=== PATIENT | male | born 1940 | race Caucasian/White ===

== ENCOUNTER 2023-10-09 11:40 | Inpatient (IN) | payer MEDICARE, SELFPAY ==
[2023-10-09] VITALS (12 sets, daily range): BP systolic 137–156; BP diastolic 52–88; PULSE 2–85; BMI 27.1
[2023-10-09] MEDS: NSS 264 ML IV (09:58)
[2023-10-09] MEDS: LOW STRENGTH ASPIRIN 81 MG PO (09:59)
--- NOTE | 2023-10-09 11:55 | PTCARENOTE ---
Rec'd report from Wagner in the laboratory courier. Rec'd pt into rm s/p cardiac cath AAOx3 w/no c/o CP or SOB. Pt's O2 sats a little low at 89-90% on RA-checked bilaterally. Pt placed on 2L O2 via NC to increase sats. Pt now 96% on 2L. Pt's VS stable. R radial
band in place w/no signs or symptoms of bleeding or hematoma. 10 mLs of air in place in band per metallurgical lab technician report. Pt's at bedside. Call nicholson within reach & plan of care ongoing.
--- NOTE | 2023-10-09 12:05 | ITS.CL.CATH ---
Medicaid Analyst - Catheterization
Cardiac Catheterization
Procedure Report:
LEFT HEART CATHETERIZATION
Date of Procedure: October 09, 2023
Procedures performed:
1: Coronary angiography
2: Left ventricular hemodynamic assessment
Primary Care Physician: Dr. Renita Ward
Primary Spa Director/Finance: Myself
INDICATION: The patient is an 82-year-old man with a past medical history significant for known severe left > right lower extremity peripheral arterial disease, hypertension, COPD, renal insufficiency, chronic anemia on Epogen and recent IV iron,
GERD, and obstructive sleep apnea on CPAP who presents with new exertional angina progressive over the last 6 months. Echocardiography performed on August 02, 2023 shows normal LV systolic function with no significant valvular disease. Nuclear
perfusion imaging performed on October 02 suggested inferior ischemia with exertional chest discomfort at peak exercise which was limited to 4 minutes on a modified Connor protocol held at stage I (only 2.3 METS of exercise). He reports some
exertional tightness walking across the parking lot this morning to the hospital.
ACCESS: The patient was prepped and draped in usual sterile fashion. A 6 Estonian sheath was placed in the right radial artery using the Seldinger over the wire technique.
HEMODYNAMIC FINDINGS (mmHg):
LV(s/d,EDP): 150/12, 20
Ao(s/d,m): 150/56, 95
ANGIOGRAPHIC FINDINGS:
Single-plane Left Ventriculography in TIAN Projection: Not done due to elevated creatinine and recent noninvasive imaging.
Coronary Angiography:
Dominance: Right
Left Main: The left main appears diffusely diseased with a calcific long 70% stenosis. There is pressure dampening with 6 Estonian catheter engagement noted.
Left Anterior Descending: The left anterior descending artery is a medium caliber vessel that gives rise to 2 major diagonal branches. The first diagonal is a small to medium caliber high diagonal branch which bifurcates into 2 small vessels with
normal flow and no clear obstructive disease. The second diagonal branch is a larger caliber vessel that has a smooth 30 to 40% proximal stenosis with normal distal flow. The LAD itself is heavily calcified with mild to moderate luminal
irregularities and at worst a smooth long 40 to 50% mid stenosis after the takeoff of the second diagonal branch. The distal LAD has normal flow.
Left Circumflex: The left circumflex artery is a relatively large nondominant system that gives rise to 2 small and a very large third obtuse marginal branch. There is heavy calcification in the mid circumflex associated with a 50% stenosis
extending into the large third obtuse marginal branch. There is normal flow in all vessels.
Right Coronary: The right coronary artery is a relatively large caliber dominant system that gives rise to a very large caliber posterior descending artery and smaller posterior left ventricular branch system. Again the right coronary artery is
heavily calcified in the AV groove particularly at the acute margin. There is diffuse luminal irregularities throughout the right coronary artery with a long proximal 40% stenosis and a more severe focal mid 60% stenosis before the acute margin.
There is a smooth 50% stenosis in the ostial/proximal posterior descending artery. The distal vessel is widely patent with normal flow. The PLV branch has a smooth ostial 40% stenosis with normal flow in the distal small caliber system.
Fluoroscopy Time (min): 3.4
Radiation Dose (mGy): 314
DAP (Gy.cm2): 21
Closure device: None. A TR band was applied for hemostasis at the right wrist.
Complications: None.
ASSESSMENT:
1: Three-vessel obstructive coronary artery disease with significant left main disease as described above.
CONCLUSIONS and RECOMMENDATIONS:
1: CT surgical evaluation for CABG. He would obviously be high risk with significant renal insufficiency and COPD. Ideally he would get graft to the LAD, OM 3, and posterior descending arteries. Given his symptoms walking into the hospital this
morning I will admit him for an inpatient surgical evaluation. If he is deemed to be too high risk or refuses surgical revascularization I would favor medical therapy for this particular heavily calcified anatomy.
2: Continue medical therapy for hypertension, coronary artery disease, peripheral arterial disease, and hyperlipidemia.
David Magana M.D.
Copy to: Dr. Renita Ward, Dr. Janie Encarnacion, Dr. Chung Allrde
--- NOTE | 2023-10-09 13:01 | CONSULT.CT ---
Addendum entered and electronically signed by Chung Lafleur MD 10/10/23 13:43:
I saw and examined the patient.
The MOTORCYCLE SERVICE TECHNICIAN's note was reviewed and I agree with the note.
Comment:
I met briefly with Mr. Stern at the bedside who was comfortable. I reviewed his films. I plan to sit down with him tomorrow to discuss in detail the conduct of the operation (tentatively for Saturday). He will also need full PFTs given the pulmonary
disease apparent on his CT study. Given his age, ckd, and pulmonary disease he will be at elevated risk with surgery, however, given the appearance of his CAD and LM involvement, I think the risk is reasonable.
Thank you for involving me in the care of this patient. Please feel free to contact me with any questions or concerns.
Chung Lafleur MD, MS
Cardiothoracic Surgeon
[facility]
This dictation was created using the [employer] dictation system. Please excuse any grammatical, typographical, or 'sound alike' errors.
Addendum entered and electronically signed by JAIR Alba 10/09/23 14:52:
Original Note:
Consultation
-
Date/Time Consultation Requested: 10/09/23 1230
Date/Time Consultation Performed: 10/09/23 1315
Requesting Provider: Homar Magana MD
Performing Provider: Nabil Lafleur MD
Reason for Consultation: CABG eval
Patient History
Physicians
Family Physician: Dr. Renita Ward
Outpatient Environmental Program Manager: Dr. David Magana
Inpatient Environmental Program Manager: David Magana/DIVINE
History of Present Illness
82-year-old male with past medical history of PAD, HTN, TECHNICAL DOCUMENT WRITER, renal insufficiency with chronic anema on iron and epogen, GERD, and IRINA on home CPAP presented after having progressive excertional angina in the past several months. The patient states
that it all started around when he was admitted with hypertension. Echocardiography performed on August 02, 2023 shows normal LV systolic function with no significant valvular disease.� Nuclear perfusion imaging performed on October 02
suggested inferior ischemia with exertional chest discomfort at peak exercise which was limited to 4 minutes on a modified Connor protocol held at stage I (only 2.3 METS of exercise).� He reports some exertional tightness walking across the parking
lot this morning to the hospital for his LHC. LHC revealed triple vessel obstructive coronary artery disease with significant LM disease. therefore, CT surgery was consulted for surgical evaluation.
Past Medical History
Past Medical History: Angina, CAD, COPD, HTN, Hypercholesterolemia, IRINA and Renal Insufficiency
Past Surgical History
Past Surgical History: Cholecystectomy and Other (Femur repair 50 years ago)
Dental History
Full top dentures and partial bottom dentures
Family History
Mother: at Age and Cause of (lung cancer)
Father: at Age and Cause of (Aortic valve insuffiency)
Family Medical History: Cancer
Social History
Alcohol: Occasional
Drug: None
Tobacco: Former Smoker (Quit 20 years ago)
Personal:
Living: With Spouse
Employment: Retired ('tree surgeon')
Allergies
Allergy/AdvReac Type Severity Reaction Status Date / Time
No Known Allergies Allergy Unverified 10/09/23 10:02
Home Medications
Medication Instructions Recorded Confirmed Type
amlodipine 2.5 mg tablet 5 mg PO DAILY 10/05/19 10/09/23 History
ascorbic acid (vitamin C) 1,000 mg 1,000 mg PO DAILY 10/05/19 10/09/23 History
tablet (Vitamin C)
aspirin 81 mg tablet,delayed 81 mg PO HS 10/05/19 10/09/23 History
release
atorvastatin 40 mg tablet (Lipitor) 40 mg PO HS 10/05/19 10/09/23 History
cholecalciferol (vitamin D3) 25 50 mcg PO DAILY 10/05/19 10/09/23 History
mcg (1,000 unit) capsule (Vitamin
D3)
cyanocobalamin (vitamin B-12) 1,000 mcg PO DAILY 10/05/19 10/09/23 History
1,000 mcg tablet
finasteride 5 mg tablet 5 mg PO HS 10/05/19 10/09/23 History
fish oil-dha-epa 1,200 mg-144 1 ea PO DAILY 10/05/19 10/09/23 History
mg-216 mg capsule
terazosin 10 mg capsule (Hytrin) 10 mg PO HS 10/05/19 10/09/23 History
cannabidiol 100 mg/mL oral 1 mg inhalation QPM 10/07/19 10/09/23 History
solution (Epidiolex)
albuterol sulfate 90 mcg/actuation 1 puff inhalation QID PRN 10/09/23 10/09/23 History
aerosol inhaler wheezing/dyspnea
benazepril 20 mg tablet 20 mg PO DAILY 10/09/23 10/09/23 History
epoetin naila 2,000 unit/mL 2,000 unit SC Q2W 10/09/23 10/09/23 History
injection solution (Procrit)
furosemide 40 mg tablet 40 mg PO DAILY 10/09/23 10/09/23 History
gabapentin 300 mg tablet 300 mg PO HS 10/09/23 10/09/23 History
hydralazine 50 mg tablet 50 mg PO BID 10/09/23 10/09/23 History
multivitamin 1 tab PO DAILY 10/09/23 10/09/23 History
omeprazole 20 mg tablet,delayed 20 mg PO BID@0800,1700 10/09/23 10/09/23 History
release
umeclidinium 62.5 mcg-vilanterol 1 inh inhalation DAILY 10/09/23 10/09/23 History
25 mcg/actuation powdr for
inhalation (Anoro Ellipta)
Review of Systems
-
History Source: Patient
General: Reports Weight Gain
HEENT: Reports No Symptoms
Respiratory: Reports No Symptoms
Cardiac: Reports Chest Pain, CAD and Edema
Abdomen/GI: Reports No Symptoms
: Reports Frequency (09/27 lasix)
Musculoskeletal: Reports No Symptoms
Skin: Reports No Symptoms
Neurological: Reports No Symptoms
Vascular: Reports No Symptoms
Physical Exam
Vital Signs
Temp 97.7 F 10/09/23 11:44
Temp route: Oral 10/09/23 09:39
Pulse 67 10/09/23 11:45
Resp Rate 16 10/09/23 11:44
Blood pressure 137/52 10/09/23 11:45
Blood pressure extremity used: Left upper arm 10/09/23 11:44
Position: Lying 10/09/23 11:44
MAP (cuff-Dexter Monitor) 79 10/09/23 11:45
SaO2 95 10/09/23 11:44
Nasal Cannula flow liters per minute 2 10/09/23 11:44
Oxygen Mode of Delivery Room air 10/09/23 09:39
Can the patient verbally communicate their pain? Yes 10/09/23 09:39
Actual Weight 88 kg 10/09/23 06:50
Body Mass Index (BMI) 27.1 10/09/23 06:50
Exam
General: Well Developed and Well Nourished
HEENT: Normocephalic
Respiratory: Clear
Cardiac: S1/S2 and Regular Rhythm
GI: Soft
Rectal: Deferred by Provider
Skin: Warm and Dry
Neuro: AO x 3
Extremities: Lower Level Edema (Trace) and Pulses (+1 palp)
Lymph: No Lymphadenopathy
Psych: Calm
Assessment / Plan
-
82 y/o male with past medical history listed above presented with excertionall CP for a LHC. LHC revealed MVD and CT surgery was consulted for surgical eval.
#CAD
-Patient's case will be discussed with attending physician and further details regarding surgical timing intervention will be determined after attending physicians full evaluation.
-Routine preoperative cardiothoracic surgery orders will be initiated.
-STS risk stratification score will be calculated after preoperative testing is complete
-Continue nitroglycerin and heparin gtt per cardiology
#COPD
-PFTs ordered
- reports not wearing home O2
#Renal insufficiency
- BMP pending
- reports not following an outpatient manager review
- Will consult nephro
#hx of anemia
-continue epogen
- trend CBC
- will likely start IV iron pre-op
--- NOTE | 2023-10-09 14:05 | CM ---
CM following for DC planning needs.
Met w/ patient's sig. other at bedside to complete initial assessment. Pt. was not present in the room at this time.
Pt. resides w/ sig. other in a private, multi level home. Main bedroom and bath located on second level. Pt. has a CPAP at home and uses this regularly. Functionally, patient is indep. at baseline w/ ADLs, mobility without the use of any assisted
device.
Pt. has Rx plan and uses [facility] for prescription needs.
Sig. other states that she is awaiting Nursery Technician + Surgeon for plan of care.
CM to follow for DC planning needs.
--- NOTE | 2023-10-09 15:56 | W.CON.NEPH ---
Consultation
-
Date/Time Consultation Requested: October 09, 2023 3:00 PM
Date/Time Consultation Performed: October 09, 2023 3:00
Requesting Provider: Ciarra
Performing Provider: Blaire
Reason for Consultation: CKD 4
Medical History
-
Chief Complaint: Chronic kidney disease stage IV
History of Present Illness:
The patient is an 82-year-old male with a past medical history of longstanding hypertension currently suboptimally controlled on the combination of amlodipine benazepril, hydralazine, terazosin and Lasix. The patient was previously seen by
nephrology in June 2023 when he was admitted to [facility] with uncontrolled hypertension. A negative secondary hypertensive workup was initiated which included negative renal artery duplex. I did review an ultrasound during that
hospitalization from [place] which showed normal-sized kidneys without evidence of increased echogenicity. His urinalysis was noted to have 1+ proteinuria. A few weeks ago he was initiated on Lasix due to sudden onset of increasing lower
extremity edema. I reviewed his past medical history which included a creatinine level of 1.7 from March 2023. In June 2023 the creatinine was 2.2 and as of September 17, 2023 his creatinine was 1.9. Extrapolating back further from February 2019
his creatinine was 1.5. He was seen by his assistant reading teacher in the [place] area for follow-up when he was noted to have chest discomfort for which she was referred back to cardiology. Eventually he underwent cardiac stress test and then was referred
to [facility] today for elective cardiac catheterization. He still continues to have ongoing chest discomfort with exertion. His heart cath revealed an LVEDP of 20 with associated triple-vessel disease and he is now being evaluated by
cardiothoracic surgery for CABG procedure. I was consulted for his CKD stage IV
Past Medical History
CKD stage IV (2.4 10/02/23)
BPH
Peripheral arterial disease with symptomatic claudication
Past Medical History: CAD, COPD, HTN and Hypercholesterolemia
Past Surgical History: Cholecystectomy
Social History
Ex tobacco quit 30 years ago
No alcohol abuse
Tobacco: Former Smoker
Drug: None
Personal:
Living: With Family
Family History
No CKD
Allergies / Home Medications
Allergy/AdvReac Type Severity Reaction Status Date / Time
No Known Allergies Allergy Unverified 10/09/23 10:02
Medication Instructions Recorded Confirmed Type
amlodipine 2.5 mg tablet 5 mg PO DAILY 10/05/19 10/09/23 History
ascorbic acid (vitamin C) 1,000 mg 1,000 mg PO DAILY 10/05/19 10/09/23 History
tablet (Vitamin C)
aspirin 81 mg tablet,delayed 81 mg PO HS 10/05/19 10/09/23 History
release
atorvastatin 40 mg tablet (Lipitor) 40 mg PO HS 10/05/19 10/09/23 History
cholecalciferol (vitamin D3) 25 50 mcg PO DAILY 10/05/19 10/09/23 History
mcg (1,000 unit) capsule (Vitamin
D3)
cyanocobalamin (vitamin B-12) 1,000 mcg PO DAILY 10/05/19 10/09/23 History
1,000 mcg tablet
finasteride 5 mg tablet 5 mg PO HS 10/05/19 10/09/23 History
fish oil-dha-epa 1,200 mg-144 1 ea PO DAILY 10/05/19 10/09/23 History
mg-216 mg capsule
terazosin 10 mg capsule (Hytrin) 10 mg PO HS 10/05/19 10/09/23 History
cannabidiol 100 mg/mL oral 1 mg inhalation QPM 10/07/19 10/09/23 History
solution (Epidiolex)
albuterol sulfate 90 mcg/actuation 1 puff inhalation QID PRN 10/09/23 10/09/23 History
aerosol inhaler wheezing/dyspnea
benazepril 20 mg tablet 20 mg PO DAILY 10/09/23 10/09/23 History
epoetin naila 2,000 unit/mL 2,000 unit SC Q2W 10/09/23 10/09/23 History
injection solution (Procrit)
furosemide 40 mg tablet 40 mg PO DAILY 10/09/23 10/09/23 History
gabapentin 300 mg tablet 300 mg PO HS 10/09/23 10/09/23 History
hydralazine 50 mg tablet 50 mg PO BID 10/09/23 10/09/23 History
multivitamin 1 tab PO DAILY 10/09/23 10/09/23 History
omeprazole 20 mg tablet,delayed 20 mg PO BID@0800,1700 10/09/23 10/09/23 History
release
umeclidinium 62.5 mcg-vilanterol 1 inh inhalation DAILY 10/09/23 10/09/23 History
25 mcg/actuation powdr for
inhalation (Anoro Ellipta)
Review of Systems
-
History Source: Patient
All other systems: Negative unless noted
Constitutional: No Symptoms
EENT: No Symptoms
Respiratory: No Symptoms
Cardiac: Chest Pain (Exacerbated with exertion, noted claudication discomfort in legs with exertion)
Abdomen/GI: No Symptoms
: No Symptoms
Musculoskeletal: No Symptoms
Skin: No Symptoms
Neurological: No Symptoms
Endocrine: No Symptoms
Hematologic/Lymphatic: No Symptoms
Physical Exam
Vital Signs
Vital Signs
Temp Pulse Resp BP Pulse Ox
97.7 F 75 16 148/57 95
10/09/23 11:44 10/09/23 15:30 10/09/23 11:44 10/09/23 13:00 10/09/23 11:44
Physical Exam
General: AOx3, No Distress and Nontoxic
HEENT: PERRL, EOMI, Anicteric, Conjunctivae Clear, Ear/Nose Intact, Hearing Normal, Oropharynx Clear/Moist, Neck Supple, Trachea Midline and No Thyromegaly
Respiratory: Clear, Normal Excursion and Other (Decreased breath sounds to the bases bilateral)
Cardiac: S1/S2, Murmur (3 out of 6 systolic ejection murmur which radiates to the carotids), No Edema and Pulses (+1 radial pulses dorsalis pedis pulses poorly)
Breast: Deferred by me
Abdomen: Soft, Nontender, Nondistended, Normal Bowel Sounds and No Hepatosplenomegaly
Rectal: Deferred by Provider
Genito-urinary: No Costovertebral Tender
Musculoskeletal: No Clubbing, No Cyanosis and No Edema
Skin: No Rash
Neuro: Nonfocal/Grossly Intact
Hematologic/Lymphatic: No Cervical Lymphadenopathy, No Submandibular Lymphadenopathy and No Supraclavicular Lymphadenopathy
Psych: Mood/afflect pleasant, Insight/judgement good and Appropriate
Assessment/Plan
-
Impression:
Status postcardiac catheterization 10/09 with noted 3V disease
Chronic kidney disease stage IV (2.4)
Longstanding uncontrolled hypertension with negative secondary hypertensive work
Anemia on chronic BOBO
Peripheral arterial disease with active claudication
COPD
Plan:
CKD stage IV
-I suspect the patient's etiology of his kidney disease is related to ischemic nephropathy and/or hypertensive nephrosclerosis as per review of his outpatient nephrology workup
-Most recent urinalysis noted only 1+ proteinuria
-I will quantitate his underlying proteinuria with urine protein to urine creatinine ratio
-I suspect the recent rise in his creatinine was due to the administration of Lasix which was enacted as an outpatient prior to this hospitalization
-His kidney ultrasound and renal artery duplex were all within normal limits
-Benazepril and Lasix should be held following his catheterization today
-I am not sure if he was provided with contrast prophylaxis prior to this cardiac catheterization this afternoon
-Henceforth the patient may be at increased risk for contrast nephropathy
-I explained to the patient that he is at increased risk for continued renal decline following his cardiac catheterization and would be at an increased risk for renal failure (possibly HD dependent) following a CABG procedure given his
comorbidities ,age,andCKD stagen 4
Data Reviewed
-
Radiology: Image Personally Visualized and interpreted
Medical Tests (Nuc Med, Echo etc): Report Reviewed by me (I reviewed a renal artery duplex from 10/04/2022 which was without stenosis as well as a normal kidney ultrasound from same day) and Other (I reviewed the cardiac catheterization today which
noted three-vessel disease and an LVEDP of 20)
Labs: Labs Reviewed by me
Old Records: Reviewed (I reviewed old records from 10/02/2023 which noted a creatinine of 2.4, reviewed and negative renal artery duplex report from 10/04/2023 as well as a normal kidney ultrasound report from 10/04/2023)
[2023-10-09 16:21] LABS: Hematocrit 28.3 % (39.0-52.0); Hemoglobin 9.7 g/dL (13.0-18.0); Mean Corp Hgb Conc. 34.3 g/dL (33.0-37.0); Mean Corpuscular Hgb 29.1 pg (27.0-31.0); Mean Platelet Volume 10.8 fL (7.4-10.4); Platelet Count 176 10^3/uL (130-400); Red Blood Cell Count 3.33 10^6/uL (4.70-6.10); Red Cell Dist. Width 18.6 % (11.5-14.5); White Blood Cell Count 7.1 10^3/uL (4.8-10.8)
[2023-10-09 16:43] LABS: ALT (SGPT) 14 U/L (0-50); AST (SGOT) 18 U/L (17-59); Albumin 3.8 g/dl (3.5-5.0); Alkaline Phosphatase 68 U/L (38-126); Blood Urea Nitrogen 50 mg/dl (9-20); Calcium 9.4 mg/dl (8.4-10.2); Carbon Dioxide 25 mmol/L (22-30); Chloride 101 mmol/L (98-107); Direct Bilirubin 0.5 mg/dl (0.0-0.4); Estimated Creatinine Clearance 26 ml/min; Glucose 116 mg/dl (70-99); Potassium 4.1 mmol/L (3.5-5.1); Sodium 137 mmol/L (135-145); Total Bilirubin 0.7 mg/dl (0.2-1.3); Total Protein 6.5 g/dl (6.3-8.2); eGFR 27.66
[2023-10-09 17:31] LABS: APTT 31.2 Sec (23.4-35.0)
[2023-10-09] MEDS: PROTONIX 40 MG PO (18:32)
[2023-10-09] MEDS: LOVENOX 30 MG SC (18:32)
[2023-10-09] MEDS: HEPARIN 25000 UNITS/250 ML IV (20:00)
[2023-10-09] MEDS: APRESOLINE 50 MG PO (20:00)
[2023-10-09] MEDS: HYTRIN 10 MG PO (22:17)
[2023-10-09] MEDS: NEURONTIN 300 MG PO (22:17)
[2023-10-09] MEDS: PROSCAR 5 MG PO (22:18)
[2023-10-09] MEDS: ASPIR LOW (ENTERIC COATED) 81 MG PO (22:18)
[2023-10-09] MEDS: LIPITOR 40 MG PO (22:18)
[2023-10-10] VITALS (7 sets, daily range): BP systolic 131–174; BP diastolic 54–76; PULSE 2–89
--- NOTE | 2023-10-10 00:06 | PTCARENOTE ---
Received pt at handoff. AOX3. Assessment noted as documented. Heparin gtt infusing at 10 ml/hr per order. R radial dressing c/d/i. No c/o pain/discomfort. Pt able to ambulate around room w/o CP. Pt currently in bed; call bharat w/in reach.
[2023-10-10 02:46] LABS: Hemoglobin 8.9 g/dL (13.0-18.0); Mean Corp Hgb Conc. 34.2 g/dL (33.0-37.0); Mean Corpuscular Hgb 29.2 pg (27.0-31.0); Mean Corpuscular Volume 85.2 fL (80.0-94.0); Mean Platelet Volume 10.7 fL (7.4-10.4); Platelet Count 158 10^3/uL (130-400); Red Blood Cell Count 3.05 10^6/uL (4.70-6.10); Red Cell Dist. Width 18.5 % (11.5-14.5)
[2023-10-10 02:58] LABS: APTT 55.9 Sec (23.4-35.0)
[2023-10-10 03:23] LABS: Blood Urea Nitrogen 45 mg/dl (9-20); Calcium 8.8 mg/dl (8.4-10.2); Carbon Dioxide 24 mmol/L (22-30); Chloride 107 mmol/L (98-107); Estimated Creatinine Clearance 28 ml/min; Glucose 93 mg/dl (70-99); HDL Cholesterol 74 mg/dl; LDL Cholesterol, Calculated 55 mg/dl; Potassium 3.5 mmol/L (3.5-5.1); Sodium 136 mmol/L (135-145); Total Cholesterol 136 mg/dl (50-199); Triglyceride 38 mg/dl (10-149); Very Low Density Lipoprotein 7 mg/dl (0-30); eGFR 29.17
[2023-10-10 05:10] LABS: B.E. 1.5 mmol/L; HCO3 25.9 mmol/L (21-28); PCO2 39 mmHg (35-48); PO2 88 mmHg (83-108); pH 7.43 (7.35-7.45)
--- NOTE | 2023-10-10 07:35 | W.PN.CARDCBS ---
Addendum entered and electronically signed by Huma Lynn MD 10/10/23 12:25:
I saw and examined the patient.
The Bioprocess Development Engineer's note was reviewed and I agree with the note.
Comment: He is stable from a cardiovascular point of view. Awaiting CT surgery opinion and preoperative testing.
Carotid disease noted.
Discussed with patient. Exam stable.
Continue current treatment.
Follow telemetry telemetry stable. Some PVCs noted.
Original Note:
Today's Communication / Plan
-
CT surgery evaluation ongoing
Continue heparin drip
Impression / Plan
-
PCP: Dr. Renita Ward
[employer]: Dr. Magana ([facility] Cardiology)
Impression:
CAD
3-vessel CAD with significant LM disease by cath 10/09/2023
PAD
HTN
HLD
CKD 4
COPD
Chronic ALEC
GERD
IRINA on CPAP
Nuclear stress test 10/02/2023: moderate to large size and moderate in severity perfusion defect involving the basal to apical inferior wall noted on rest imaging. This improves substantially on stress images. Positive stress ECG criteria at 4 minutes
of exercise, achieving 2.3 METs of activity .
[facility] 10/09/2023: LM diffusely diseased with long 70% stenosis. LAD: Heavily calcified with mild to moderate luminal irregularities and at worst a smooth long 40 to 50% mid stenosis. LCx: Heavy calcification in the mid circumflex associated with a
50% stenosis extending into the large third obtuse marginal branch. RCA: Diffuse luminal irregularities throughout the RCA with a long proximal 40% stenosis and a more severe focal mid 60% stenosis before the acute margin. Smooth 50% stenosis in
the ostial/proximal PDA.
Echo 08/02/2023: EF 55-60%, moderate cLVH, no significant valvular disease
Plan:
-Presented for [facility] with Dr. Magana after experiencing exertional chest discomfort with abnormal stress test as noted.
-[facility] found multivessel CAD and patient is currently undergoing CT surgery evaluation for possible CABG.
-Carotid US noted >70% stenosis of the R ICA.
-CKD 4 noted, being followed by nephrology. Creat 2.2 on 10/10.
-No chest pain or SOB. Feeling well this AM.
-Continue heparin drip. Continue aspirin, lipitor
-BP overall stable, continue hydralazine and amlodipine.
-Consider cautious addition of BB with low dose toprol.
Progress Note - [employer]
Subjective
Date of Service: October 10, 2023
No chest pain or SOB. Feeling well today.
Objective
Labs:
10/10/23 02:39
10/10/23 02:39
Labs
Hgb 8.9 g/dL (13.0-18.0) L 10/10/23 02:39
Hct 26.0 % (39.0-52.0) L 10/10/23 02:39
Plt Count 158 10^3/uL (130-400) 10/10/23 02:39
PT 15.0 Sec (11.4-14.6) H 10/09/23 16:14
INR 1.20 10/09/23 16:14
APTT 55.9 Sec (23.4-35.0) H 10/10/23 02:39
Sodium 136 mmol/L (135-145) 10/10/23 02:39
Potassium 3.5 mmol/L (3.5-5.1) 10/10/23 02:39
BUN 45 mg/dl (9-20) H 10/10/23 02:39
Creatinine 2.2 mg/dL (0.7-1.3) H 10/10/23 02:39
Glucose 93 mg/dl (70-99) 10/10/23 02:39
Vital Signs and I&O:
Vital Signs
Temp Pulse Resp BP Pulse Ox
98.8 F 63 20 142/54 96
10/10/23 07:20 10/10/23 02:41 10/10/23 07:20 10/10/23 02:41 10/10/23 07:20
Vital Signs
Temp Pulse Resp BP Pulse Ox
98.8 F 63 20 142/54 96
10/10/23 07:20 10/10/23 02:41 10/10/23 07:20 10/10/23 02:41 10/10/23 07:20
Intake & Output
10/08/23 10/09/23 10/10/23 10/11/23
06:59 06:59 06:59 06:59
Intake Total 2031
Balance 2031
Physical Exam
Physical Exam
GEN: No distress, awake, alert, oriented x3
HEENT: supple, anicteric, mmm
LUNGS: CTA b/l, no wheezes/rales
CV: Reg, S1/S2, no murmur
ABD: soft, BS+, NT/ND
EXT: No clubbing, cyanosis, or edema
NEURO: Gross non-focal
SKIN: Warm, dry, no rash
--- NOTE | 2023-10-10 08:09 | W.PN.UPDATE ---
Update Note
Progress Note Update
STS Risk Calculation:
Procedure Type:�Isolated CABG
PERIOPERATIVE OUTCOME ESTIMATE %
Operative Mortality 5.33%
Morbidity & Mortality 17.5%
Stroke 1.33%
Renal Failure 14.3%
Reoperation 3.78%
Prolonged Ventilation 7.09%
Deep Sternal Wound Infection 0.167%
Long Hospital Stay (>14 days) 11.2%
Short Hospital Stay (<6 days)* 17.5%
[2023-10-10 08:12] LABS: Protein/creatinine Ratio 0.8; Urine Protein 73 mg/dl
[2023-10-10] MEDS: APRESOLINE 50 MG PO ×2 (08:38→20:25)
[2023-10-10] MEDS: PROTONIX 40 MG PO ×2 (08:38→16:29)
[2023-10-10] MEDS: NORVASC 5 MG PO (08:38)
[2023-10-10] MEDS: VITAMIN C 500 MG PO (08:38)
[2023-10-10 09:11] LABS: Glycohemoglobin (HgbA1c) 5.7 % (4.0-5.6)
[2023-10-10 10:17] LABS: APTT 46.4 Sec (23.4-35.0)
--- NOTE | 2023-10-10 10:39 | PTCARENOTE ---
Assumed care of pt from prev nsg shift this am; Pt AAOx3 w/no c/o CP or SOB. Pt's VS stable. NSR on telemetry monitoring. Pt w/Heparin IV infusing at ordered rate through patent IV line. Discussed plan of care w/pt w/upcoming CT surgery. Gave pt CT
surgery book & answered questions RE: plan from the nursing aspect. Pt given pen & paper to write down any questions for the physicians as they come up. Pt verbalized understanding of current plan. Pt w/call nicholson within reach & no addtl needs at
this time.
[2023-10-10] MEDS: SPIRIVA RESPIMAT 2.5 MCG INH (11:17)
[2023-10-10] MEDS: STRIVERDI RESPIMAT INH (11:17)
[2023-10-10] MEDS: TOPROL XL 25 MG PO (11:49)
--- NOTE | 2023-10-10 12:30 | W.PN.NEPH.PH ---
Today's Communication / Plan
-
observe
follow up bmp tomorrow
holding tyler and lasix for now
Assessment/Plan
-
Impression:
Status postcardiac catheterization 10/09 with noted 3V disease
Chronic kidney disease stage IV (2.4)
Longstanding uncontrolled hypertension with negative secondary hypertensive work
Anemia on chronic BOBO
Peripheral arterial disease with active claudication
COPD
Plan:
CKD stage IV
-Creatinine stable at 2.2 24 hours post cath
-I suspect the patient's etiology of his kidney disease is related to ischemic nephropathy and/or hypertensive nephrosclerosis as per review of his outpatient nephrology workup
-Most recent urinalysis noted only 1+ proteinuria ~800 mg
-
-I suspect the recent rise in his creatinine was due to the administration of Lasix which was enacted as an outpatient prior to this hospitalization
-His kidney ultrasound and renal artery duplex were all within normal limits
-Benazepril and Lasix should be held for now
-I explained to the patient that he is at increased risk for continued renal decline following his cardiac catheterization and would be at an increased risk for renal failure (possibly HD dependent) following a CABG procedure given his
comorbidities ,age,and CKD stage 4
-
-
Date of Service: October 10, 2023
CC / HPI / ROS
-
Chief Complaint:
ckd
History of Present Illness:
Creatinine stable at 2.2 post catheterization which was performed 10/09/2023
Blood pressure stable on current antihypertensive
Review of Systems:
non olguric
no fevers
no sob
Labs
-
Labs:
WBC 7.0 10^3/uL (4.8-10.8) 10/10/23 02:39
RBC 3.05 10^6/uL (4.70-6.10) L 10/10/23 02:39
Hgb 8.9 g/dL (13.0-18.0) L 10/10/23 02:39
Hct 26.0 % (39.0-52.0) L 10/10/23 02:39
Plt Count 158 10^3/uL (130-400) 10/10/23 02:39
Sodium 136 mmol/L (135-145) 10/10/23 02:39
Potassium 3.5 mmol/L (3.5-5.1) 10/10/23 02:39
Chloride 107 mmol/L (98-107) 10/10/23 02:39
Carbon Dioxide 24 mmol/L (22-30) 10/10/23 02:39
BUN 45 mg/dl (9-20) H 10/10/23 02:39
Creatinine 2.2 mg/dL (0.7-1.3) H 10/10/23 02:39
eGFR 29.17 10/10/23 02:39
Glucose 93 mg/dl (70-99) 10/10/23 02:39
Calcium 8.8 mg/dl (8.4-10.2) 10/10/23 02:39
Albumin 3.8 g/dl (3.5-5.0) 10/09/23 16:14
Physical Exam
-
Vital Signs:
Vital Signs
Temp Pulse Resp BP Pulse Ox
98.5 F 65 20 140/56 93
10/10/23 11:48 10/10/23 12:01 10/10/23 11:48 10/10/23 11:49 10/10/23 11:48
Cardiovascular:: Regular rate and rhythm
Respiratory:: Bilateral: CTA
Lung Excursion:: Normal
Abdomen:: Nontender and Soft
Bowel Sounds:: Normal
Extremity Edema:: None: Bilateral:
Hanna Catheter: No
[2023-10-10] MEDS: HEPARIN 25000 UNITS/250 ML IV (14:08)
--- NOTE | 2023-10-10 14:57 | CM ---
CM following for DC planning needs.
Met w/ patient at bedside. Pt. feels well, is expecting CT Surgery next wk.
Discussed w/ patient that I will plan to return once sig. other is at bedside to complete pre-op teaching.
Will cont. to follow.
[2023-10-10] MEDS: FERRLECIT 110 MG IV (15:23)
[2023-10-10] MEDS: FLUSH (NSS) 2 FLUSH IV (15:23)
[2023-10-10 17:06] LABS: APTT 103.2 Sec (23.4-35.0)
[2023-10-10] MEDS: PROSCAR 5 MG PO (22:57)
[2023-10-10] MEDS: ASPIR LOW (ENTERIC COATED) 81 MG PO (22:57)
[2023-10-10] MEDS: LIPITOR 40 MG PO (22:57)
[2023-10-10] MEDS: HYTRIN 10 MG PO (22:58)
[2023-10-10] MEDS: NEURONTIN 300 MG PO (22:58)
--- NOTE | 2023-10-10 23:40 | PTCARENOTE ---
Received pt at handoff. AOX3. Tele- SR 70-80s. Assessment noted as documented. No c/o pain/discomfort. Heparin gtt infusing at 1400 units/hr. Currently in bed; call nicholson w/in reach.
[2023-10-10 23:53] LABS: APTT 94.8 Sec (23.4-35.0)
[2023-10-11] VITALS (7 sets, daily range): BP systolic 122–150; BP diastolic 51–70; BMI 26.4
[2023-10-11 03:54] LABS: Hematocrit 26.6 % (39.0-52.0); Hemoglobin 9.1 g/dL (13.0-18.0); Mean Corp Hgb Conc. 34.2 g/dL (33.0-37.0); Mean Corpuscular Hgb 29.5 pg (27.0-31.0); Mean Corpuscular Volume 86.4 fL (80.0-94.0); Mean Platelet Volume 11.7 fL (7.4-10.4); Platelet Count 161 10^3/uL (130-400); Red Blood Cell Count 3.08 10^6/uL (4.70-6.10); Red Cell Dist. Width 18.6 % (11.5-14.5); White Blood Cell Count 5.7 10^3/uL (4.8-10.8)
[2023-10-11 04:26] LABS: Blood Urea Nitrogen 46 mg/dl (9-20); Calcium 9.1 mg/dl (8.4-10.2); Carbon Dioxide 25 mmol/L (22-30); Chloride 103 mmol/L (98-107); Estimated Creatinine Clearance 28 ml/min; Glucose 91 mg/dl (70-99); Potassium 3.8 mmol/L (3.5-5.1); Sodium 136 mmol/L (135-145); eGFR 29.17
[2023-10-11] MEDS: HEPARIN 25000 UNITS/250 ML IV (07:56)
[2023-10-11] MEDS: NORVASC 5 MG PO (08:01)
[2023-10-11] MEDS: PROTONIX 40 MG PO ×2 (08:01→18:01)
[2023-10-11] MEDS: TOPROL XL 25 MG PO (08:01)
[2023-10-11] MEDS: APRESOLINE 50 MG PO ×2 (08:01→19:42)
[2023-10-11] MEDS: VITAMIN C 500 MG PO (08:01)
[2023-10-11] MEDS: SPIRIVA RESPIMAT 2.5 MCG 2 PUFF INH (08:41)
[2023-10-11] MEDS: STRIVERDI RESPIMAT 2 PUFF INH (08:41)
--- NOTE | 2023-10-11 09:12 | W.PN.CARDCBS ---
Addendum entered and electronically signed by Sudheer Abdul MD 10/11/23 12:10:
He offers no complaints
allergies: None
Outpatient meds albuterol, amlodipine, aspirin 81 mg a day, atorvastatin 40 mg a day, benazepril 20 mg a day, EPO, Proscar, furosemide 40 mg daily, hydralazine 50 mg twice daily, Mcgarry and 10 mg at bedtime, and neuro Ellipta
Current medications: Similar to outpatient, plus heparin, and metoprolol ER 25 mg daily
PMH/PSH/SH/FH: Reviewed
Review of systems: Negative except as above
150/70, pulse 60 resp rate 16
Head neck exam unremarkable lungs are clear, regular rate and rhythm without obvious murmurs, JVD okay, no carotid bruits, abdomen benign, extremities with trace edema distal pulses intact, neuro nonfocal
Hemoglobin 9.1, platelets 161, BUN and creatinine 46 and 2.2, creatinine was 2.3 on admission
Electrocardiogram on the 14 sinus rhythm, LVH with QRS widening, anterior MD, PVCs, left atrial enlargement
Impression:
CAD
3-vessel CAD with significant LM disease by cath 10/09/2023AD
HTN
HLD
CKD 4
COPD
Chronic ALEC
GERD
IRINA on CPAP
Plan:
He appears stable despite left main stenosis. Continue heparin.
Creatinine is stable.
He has no cardiac symptoms at present.
Tentative CABG 10/14/2023
Original Note:
Today's Communication / Plan
-
Continue CT surgery eval
Possible CABG on 10/14.
Continue heparin drip
Follow BP on current meds and uptitrate as needed
Impression / Plan
-
PCP: Dr. Renita Ward
Instrument Tester: Dr. Magana ([facility] Cardiology)
Impression:
CAD
3-vessel CAD with significant LM disease by cath 10/09/2023
PAD
HTN
HLD
CKD 4
COPD
Chronic ALEC
GERD
IRINA on CPAP
Nuclear stress test 10/02/2023: moderate to large size and moderate in severity perfusion defect involving the basal to apical inferior wall noted on rest imaging. This improves substantially on stress images. Positive stress ECG criteria at 4 minutes
of exercise, achieving 2.3 METs of activity .
[facility] 10/09/2023: LM diffusely diseased with long 70% stenosis. LAD: Heavily calcified with mild to moderate luminal irregularities and at worst a smooth long 40 to 50% mid stenosis. LCx: Heavy calcification in the mid circumflex associated with a
50% stenosis extending into the large third obtuse marginal branch. RCA: Diffuse luminal irregularities throughout the RCA with a long proximal 40% stenosis and a more severe focal mid 60% stenosis before the acute margin. Smooth 50% stenosis in
the ostial/proximal PDA.
Echo 08/02/2023: EF 55-60%, moderate cLVH, no significant valvular disease
Plan:
-Presented for [facility] with Dr. Magana after experiencing exertional chest discomfort with abnormal stress test as noted.
-[facility] found multivessel CAD and patient is currently undergoing CT surgery evaluation for possible CABG. Tentatively planned for 10/14/23.
-Carotid US noted >70% stenosis of the R ICA.
-CKD 4 noted, being followed by nephrology. Creat overall stable at 2.2 10/11. Lasix and benazepril on hold.
-Continues to be pain free. Continue heparin drip.
-Continue hydralazine and amlodipine. Low dose Toprol added 10/10.
-Follow BP and may consider increasing hydralazine or toprol versus adding back benazperil/lasix eventually.
-Continue aspirin.
-Continue lipitor. LDL 55.
-Hgb A1c 5.7%
Progress Note - Instrument Tester
Subjective
Date of Service: October 11, 2023
Feeling well without chest pain or SOB.
Objective
Labs:
10/11/23 03:35
10/11/23 03:35
Labs
Hgb 9.1 g/dL (13.0-18.0) L 10/11/23 03:35
Hct 26.6 % (39.0-52.0) L 10/11/23 03:35
Plt Count 161 10^3/uL (130-400) 10/11/23 03:35
PT 15.0 Sec (11.4-14.6) H 10/09/23 16:14
INR 1.20 10/09/23 16:14
APTT 94.8 Sec (23.4-35.0) H 10/10/23 23:28
Sodium 136 mmol/L (135-145) 10/11/23 03:35
Potassium 3.8 mmol/L (3.5-5.1) 10/11/23 03:35
BUN 46 mg/dl (9-20) H 10/11/23 03:35
Creatinine 2.2 mg/dL (0.7-1.3) H 10/11/23 03:35
Glucose 91 mg/dl (70-99) 10/11/23 03:35
Vital Signs and I&O:
Vital Signs
Temp Pulse Resp BP Pulse Ox
98.2 F 71 16 150/70 96
10/11/23 07:47 10/11/23 08:01 10/11/23 07:47 10/11/23 08:01 10/11/23 07:47
Vital Signs
Temp Pulse Resp BP Pulse Ox
98.2 F 71 16 150/70 96
10/11/23 07:47 10/11/23 08:01 10/11/23 07:47 10/11/23 08:01 10/11/23 07:47
Intake & Output
10/09/23 10/10/23 10/11/23 10/12/23
06:59 06:59 06:59 06:59
Intake Total 2031 960 / 960
Balance 2031 960 / 96
Physical Exam
Physical Exam
GEN: No distress, awake, alert, oriented x3
HEENT: supple, anicteric, mmm
LUNGS: CTA b/l, no wheezes/rales
CV: Reg, S1/S2, no murmur
ABD: soft, BS+, NT/ND
EXT: No clubbing, cyanosis, or edema b/l
NEURO: Gross non-focal
SKIN: Warm, dry, no rash
--- NOTE | 2023-10-11 13:00 | CM ---
CM following for DC planning needs.
Met w/ patient, sig. other at bedside to complete pre-op teaching.
Reviewed pre and post operative routines.
Discussed post op restrictions to include lifting, driving, flying, and sternal precautions.
Reviewed post op MD appointments, Cardiac Rehab, and visit from CT Transitional Care RN.
Plan for CT SUrgery 10/14.
Anticipated DC plan is for home w/ CT Transitional Care RN
Will cont. to follow for DC planning needs.
[2023-10-11] MEDS: FERRLECIT 110 MG IV (13:56)
--- NOTE | 2023-10-11 14:27 | W.PN.UPDATE ---
Update Note
Progress Note Update
Discussed risks and benefits with Mr Stern and the his spouse. We reviewed the conduct of the surgery and the risks associated with surgery given his current comorbids. Mr Stern has opted to move froward which is reasonable. I will sit down with
them again this weekend. Consent was obtained. Plan for surgery with me on Saturday as first case.
--- NOTE | 2023-10-11 17:15 | W.PN.NEPH.PH ---
Today's Communication / Plan
-
- continue to trend BMPs
Assessment/Plan
-
Impression:
Status postcardiac catheterization 10/09 with noted 3V disease
Chronic kidney disease stage IV (2.4)
Longstanding uncontrolled hypertension with negative secondary hypertensive work
Anemia on chronic BOBO
Peripheral arterial disease with active claudication
COPD
Plan:
CKD stage IV
-Creatinine stable at 2.2 post cath
-I suspect the patient's etiology of his kidney disease is related to ischemic nephropathy and/or hypertensive nephrosclerosis as per review of his outpatient nephrology workup
-Most recent urinalysis noted only 1+ proteinuria ~800 mg
-I suspect the recent rise in his creatinine was due to the administration of Lasix which was enacted as an outpatient prior to this hospitalization
-His kidney ultrasound and renal artery duplex were all within normal limits
-Benazepril and Lasix should be held for now
-I explained to the patient that he is at increased risk for continued renal decline following his cardiac catheterization and would be at an increased risk for renal failure (possibly HD dependent) following a CABG procedure given his
comorbidities ,age,and CKD stage 4. patient is amenable to emergent dialysis if needed
-
-
Date of Service: October 11, 2023
CC / HPI / ROS
-
Chief Complaint:
ckd
History of Present Illness:
Creatinine stable at 2.2 post catheterization which was performed 10/09/2023
Blood pressure stable on current antihypertensive
Review of Systems:
non olguric
no fevers
no sob
Labs
-
Labs:
WBC 5.7 10^3/uL (4.8-10.8) 10/11/23 03:35
RBC 3.08 10^6/uL (4.70-6.10) L 10/11/23 03:35
Hgb 9.1 g/dL (13.0-18.0) L 10/11/23 03:35
Hct 26.6 % (39.0-52.0) L 10/11/23 03:35
Plt Count 161 10^3/uL (130-400) 10/11/23 03:35
Sodium 136 mmol/L (135-145) 10/11/23 03:35
Potassium 3.8 mmol/L (3.5-5.1) 10/11/23 03:35
Chloride 103 mmol/L (98-107) 10/11/23 03:35
Carbon Dioxide 25 mmol/L (22-30) 10/11/23 03:35
BUN 46 mg/dl (9-20) H 10/11/23 03:35
Creatinine 2.2 mg/dL (0.7-1.3) H 10/11/23 03:35
eGFR 29.17 10/11/23 03:35
Glucose 91 mg/dl (70-99) 10/11/23 03:35
Calcium 9.1 mg/dl (8.4-10.2) 10/11/23 03:35
Albumin 3.8 g/dl (3.5-5.0) 10/09/23 16:14
Physical Exam
-
Vital Signs:
Vital Signs
Temp Pulse Resp BP Pulse Ox
98.4 F 69 20 132/53 96
10/11/23 15:30 10/11/23 16:30 10/11/23 15:30 10/11/23 15:32 10/11/23 08:40
Cardiovascular:: Regular rate and rhythm
Respiratory:: Bilateral: CTA
Lung Excursion:: Normal
Abdomen:: Nontender and Soft
Bowel Sounds:: Normal
Extremity Edema:: None: Bilateral:
Hanna Catheter: No
[2023-10-11] MEDS: SENOKOT-S 1 TABLET PO (22:18)
[2023-10-11] MEDS: PROSCAR 5 MG PO (22:18)
[2023-10-11] MEDS: ASPIR LOW (ENTERIC COATED) 81 MG PO (22:18)
[2023-10-11] MEDS: HYTRIN 10 MG PO (22:18)
[2023-10-11] MEDS: LIPITOR 40 MG PO (22:18)
[2023-10-11] MEDS: NEURONTIN 300 MG PO (22:18)
--- NOTE | 2023-10-11 23:32 | PTCARENOTE ---
Pt rec'd at change of shift awake,alert no complaints. Sinus on telemetry, Lungs clear on own Bipap at HS. Pt reports hard bm's while on iron. PA notified Senokot ordered and given. Heparin gtt continued at 1400 units /hr. call nicholson within reach.
[2023-10-12] VITALS (7 sets, daily range): BP systolic 136–160; BP diastolic 59–99; BMI 26.4
[2023-10-12] MEDS: HEPARIN 25000 UNITS/250 ML IV ×2 (00:59→23:03)
--- NOTE | 2023-10-12 04:08 | PTCARENOTE ---
Pt oob to void. wt same as yesterday. No c/o pain. am labs and vs obtained. call nicholson placed within reach.
[2023-10-12 04:41] LABS: Hematocrit 26.3 % (39.0-52.0); Hemoglobin 9.1 g/dL (13.0-18.0); Mean Corp Hgb Conc. 34.6 g/dL (33.0-37.0); Mean Corpuscular Hgb 29.2 pg (27.0-31.0); Mean Corpuscular Volume 84.3 fL (80.0-94.0); Mean Platelet Volume 11.2 fL (7.4-10.4); Platelet Count 158 10^3/uL (130-400); Red Blood Cell Count 3.12 10^6/uL (4.70-6.10); Red Cell Dist. Width 18.6 % (11.5-14.5); White Blood Cell Count 5.6 10^3/uL (4.8-10.8)
[2023-10-12 05:10] LABS: APTT 148.3 Sec (23.4-35.0)
[2023-10-12 05:27] LABS: Blood Urea Nitrogen 43 mg/dl (9-20); Calcium 9.1 mg/dl (8.4-10.2); Carbon Dioxide 25 mmol/L (22-30); Chloride 106 mmol/L (98-107); Estimated Creatinine Clearance 26 ml/min; Glucose 86 mg/dl (70-99); Sodium 135 mmol/L (135-145); eGFR 27.66
[2023-10-12] MEDS: STRIVERDI RESPIMAT 2 PUFF INH (07:33)
[2023-10-12] MEDS: SPIRIVA RESPIMAT 2.5 MCG 2 PUFF INH (07:33)
--- NOTE | 2023-10-12 07:49 | W.PN.CARDCBS ---
Addendum entered and electronically signed by Huma Lynn MD 10/12/23 09:48:
I saw and examined the patient.
The Assistant Chief Nursing Officer's note was reviewed and I agree with the note.
Comment: Exam without change. No new symptoms. Stable overnight but blood pressure on the higher end. Will increase amlodipine to 7.5 mg daily. Telemetry sinus rhythm with some PVCs.
Renew IV heparin. Watch for new symptoms.
Plan for upcoming CT surgery.
Eventually carotid will need to be addressed likely as outpatient. Continue risk factor modification.
Original Note:
Today's Communication / Plan
-
Continue heparin gtt
Per CT surgery, plan is to go to OR Saturday for CABG
Impression / Plan
-
PCP: Dr. Renita Ward
Director Writing: Dr. Magana ([facility] Cardiology)
Impression:
CAD
3-vessel CAD with significant LM disease by cath 10/09/2023
PAD
HTN
HLD
CKD 4
COPD
Chronic ALEC
GERD
IRINA on CPAP
Nuclear stress test 10/02/2023: moderate to large size and moderate in severity perfusion defect involving the basal to apical inferior wall noted on rest imaging. This improves substantially on stress images. Positive stress ECG criteria at 4 minutes
of exercise, achieving 2.3 METs of activity .
[facility] 10/09/2023: LM diffusely diseased with long 70% stenosis. LAD: Heavily calcified with mild to moderate luminal irregularities and at worst a smooth long 40 to 50% mid stenosis. LCx: Heavy calcification in the mid circumflex associated with a
50% stenosis extending into the large third obtuse marginal branch. RCA: Diffuse luminal irregularities throughout the RCA with a long proximal 40% stenosis and a more severe focal mid 60% stenosis before the acute margin. Smooth 50% stenosis in
the ostial/proximal PDA.
Echo 08/02/2023: EF 55-60%, moderate cLVH, no significant valvular disease
Plan:
-Presented for [facility] with Dr. Magana after experiencing exertional chest discomfort with abnormal stress test as noted.
-[facility] found multivessel CAD and patient was evaluated by CT surgery. Tentatively planned for 10/14/23 w/ Dr. Lafleur.
-Carotid US noted >70% stenosis of the R ICA.
-CKD 4 noted, being followed by nephrology. Creat overall stable at 2.3 10/12. Lasix and benazepril on hold.
-Continues to be pain free. Continue heparin drip.
-Continue hydralazine, amlodipine, and Toprol. Toprol new this admission.
-Follow BP and may consider increasing hydralazine or toprol versus adding back benazepril/lasix eventually.
-Continue aspirin.
-Continue lipitor. LDL 55.
-Hgb A1c 5.7%
Progress Note - Director Writing
Subjective
Date of Service: October 12, 2023
Feeling well this AM. Continues to be chest pain free.
Objective
Labs:
10/12/23 04:02
10/12/23 04:02
Labs
Hgb 9.1 g/dL (13.0-18.0) L 10/12/23 04:02
Hct 26.3 % (39.0-52.0) L 10/12/23 04:02
Plt Count 158 10^3/uL (130-400) 10/12/23 04:02
PT 15.0 Sec (11.4-14.6) H 10/09/23 16:14
INR 1.20 10/09/23 16:14
APTT 148.3 Sec (23.4-35.0) H 10/12/23 04:02
Sodium 135 mmol/L (135-145) 10/12/23 04:02
Potassium 4.0 mmol/L (3.5-5.1) 10/12/23 04:02
BUN 43 mg/dl (9-20) H 10/12/23 04:02
Creatinine 2.3 mg/dL (0.7-1.3) H 10/12/23 04:02
Glucose 86 mg/dl (70-99) 10/12/23 04:02
Vital Signs and I&O:
Vital Signs
Temp Pulse Resp BP Pulse Ox
97.8 F 65 16 146/65 96
10/12/23 06:37 10/12/23 07:40 10/12/23 07:40 10/12/23 03:54 10/12/23 07:40
Vital Signs
Temp Pulse Resp BP Pulse Ox
97.8 F 65 16 146/65 96
10/12/23 06:37 10/12/23 07:40 10/12/23 07:40 10/12/23 03:54 10/12/23 07:40
Intake & Output
10/10/23 10/11/23 10/12/23 10/13/23
06:59 06:59 06:59 06:59
Intake Total 2031 960 / 960 628 / 628
Balance 2031 960 / 960 628 / 628
Physical Exam
Physical Exam
GEN: No distress, awake, alert, oriented x3
HEENT: supple, anicteric, mmm
LUNGS: CTA b/l, no wheezes/rales
CV: Reg, S1/S2, no murmur
ABD: soft, BS+, NT/ND
EXT: No clubbing, cyanosis, or edema b/l
NEURO: Gross non-focal
SKIN: Warm, dry, no rash
[2023-10-12] MEDS: NORVASC 5 MG PO (08:17)
[2023-10-12] MEDS: PROTONIX 40 MG PO ×2 (08:17→17:35)
[2023-10-12] MEDS: TOPROL XL 25 MG PO (08:17)
[2023-10-12] MEDS: VITAMIN C 500 MG PO (08:17)
[2023-10-12] MEDS: SENOKOT-S 1 TABLET PO ×2 (08:17→19:30)
[2023-10-12] MEDS: APRESOLINE 50 MG PO ×2 (08:18→19:30)
[2023-10-12] MEDS: NORVASC 2.5 MG PO (09:10)
--- NOTE | 2023-10-12 09:37 | PTCARENOTE ---
resumed IV heparin as per protocol to 1200units/hr , verified with Heather MCPHERSON, PTT ordered for 1500.
[2023-10-12] MEDS: FERRLECIT 110 MG IV (12:38)
--- NOTE | 2023-10-12 13:33 | W.PN.NEPH.PH ---
Today's Communication / Plan
-
- Cr stable
- continue to monitor prior to surgery
Assessment/Plan
-
Impression:
Status postcardiac catheterization 10/09 with noted 3V disease
Chronic kidney disease stage IV (2.4)
Longstanding uncontrolled hypertension with negative secondary hypertensive work
Anemia on chronic BOBO
Peripheral arterial disease with active claudication
COPD
Plan:
CKD stage IV
-Creatinine stable at 2.3 post cath
-I suspect the patient's etiology of his kidney disease is related to ischemic nephropathy and/or hypertensive nephrosclerosis as per review of his outpatient nephrology workup
-Most recent urinalysis noted only 1+ proteinuria ~800 mg
-I suspect the recent rise in his creatinine was due to the administration of Lasix which was enacted as an outpatient prior to this hospitalization
-His kidney ultrasound and renal artery duplex were all within normal limits
-Benazepril and Lasix should be held for now
-I explained to the patient that he is at increased risk for continued renal decline following his cardiac catheterization and would be at an increased risk for renal failure (possibly HD dependent) following a CABG procedure given his
comorbidities ,age,and CKD stage 4. patient is amenable to emergent dialysis if needed
-
-
Date of Service: October 12, 2023
CC / HPI / ROS
-
Chief Complaint:
ckd
History of Present Illness:
Creatinine stable at 2.3 post catheterization which was performed 10/09/2023
Blood pressure stable on current antihypertensive
Review of Systems:
non olguric
no fevers
no sob
Labs
-
Labs:
WBC 5.6 10^3/uL (4.8-10.8) 10/12/23 04:02
RBC 3.12 10^6/uL (4.70-6.10) L 10/12/23 04:02
Hgb 9.1 g/dL (13.0-18.0) L 10/12/23 04:02
Hct 26.3 % (39.0-52.0) L 10/12/23 04:02
Plt Count 158 10^3/uL (130-400) 10/12/23 04:02
Sodium 135 mmol/L (135-145) 10/12/23 04:02
Potassium 4.0 mmol/L (3.5-5.1) 10/12/23 04:02
Chloride 106 mmol/L (98-107) 10/12/23 04:02
Carbon Dioxide 25 mmol/L (22-30) 10/12/23 04:02
BUN 43 mg/dl (9-20) H 10/12/23 04:02
Creatinine 2.3 mg/dL (0.7-1.3) H 10/12/23 04:02
eGFR 27.66 10/12/23 04:02
Glucose 86 mg/dl (70-99) 10/12/23 04:02
Calcium 9.1 mg/dl (8.4-10.2) 10/12/23 04:02
Albumin 3.8 g/dl (3.5-5.0) 10/09/23 16:14
Physical Exam
-
Vital Signs:
Vital Signs
Temp Pulse Resp BP Pulse Ox
97.8 F 65 18 157/59 96
10/12/23 10:41 10/12/23 09:45 10/12/23 10:41 10/12/23 09:10 10/12/23 10:41
Cardiovascular:: Regular rate and rhythm
Respiratory:: Bilateral: CTA
Lung Excursion:: Normal
Abdomen:: Nontender and Soft
Bowel Sounds:: Normal
Extremity Edema:: None: Bilateral:
Hanna Catheter: No
[2023-10-12 21:35] LABS: APTT 94.1 Sec (23.4-35.0)
--- NOTE | 2023-10-12 21:42 | W.PN.CT ---
Assessment / Plan
-
Assessment:
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
-Exertional angina
-Normal LV function without significant valvular disease per echo 08/02/23
-PAD
-RANDY stenosis (>70%), per u/s 10/09/22
-HTN
-HLD
-CKD 4 (cr 2.4)
-Chronic iron deficiency anemia
-BPH, on finasteride
-COPD
-IRINA (uses CPAP)
-Former tobacco use (quit 20 yrs ago)
-GERD
-DJD spine
-Prediabetes (A1C 5.7)
-Chronic right otitis media/Eustachian tube dysfunction/Retained Myringotomy tube S/P removal of myringotomy tube from right ear, 10/07/19
-S/P Cholecystectomy
-S/p Repair of femur fracture (50 yrs ago)
Plan:
-Cont. current medical management per primary team
-Cont. current meds (ASA, Heparin gtt, Lipitor, Toprol XL, Norvasc; avoid DEMIAN-I/ARBs 24-48hrs prior to CABG)
-Ongoing preop evaluation
-For CABG (1st case) by Dr. Lafleur on Saturday, 10/14
-Stop heparin gtt semiconductor wafers saw operator to OR
-Will cont. to closely monitor
Subjective
-
Date of Service: October 12, 2023
Objective Data
-
Lab Results
10/12/23 04:02
10/12/23 04:02
PT 15.0 Sec (11.4-14.6) H 10/09/23 16:14
INR 1.20 10/09/23 16:14
APTT 94.1 Sec (23.4-35.0) H 10/12/23 21:11
Vital Signs
Vital Signs
Temp Pulse Resp BP Pulse Ox
98.7 F 63 18 160/68 97
10/12/23 19:58 10/12/23 20:00 10/12/23 15:09 10/12/23 19:30 10/12/23 19:58
CT Intake/Output/Weight
10/12/23 10/12/23 10/13/23
06:59 18:59 06:59
Intake Total 408 / 628 504 / 504
Balance 408 / 628 504 / 504
SaO2: 97
--- NOTE | 2023-10-12 21:50 | PTCARENOTE ---
Pt received at start of shift, HR SR w/ BBB 60s. Heparin infusing at 1200units/hr per protocol. Pt states no questions about future CABG operation. Pt denies any pain, SOB, or lightheadedness/dizziness at this time. Informed to notify RN if any
changes, call nicholson within reach.
[2023-10-12] MEDS: ASPIR LOW (ENTERIC COATED) 81 MG PO (22:33)
[2023-10-12] MEDS: NEURONTIN 300 MG PO (22:33)
[2023-10-12] MEDS: LIPITOR 40 MG PO (22:34)
[2023-10-12] MEDS: PROSCAR 5 MG PO (22:34)
[2023-10-12] MEDS: HYTRIN 10 MG PO (22:34)
[2023-10-13 03:21] VITALS: BP 146/51
[2023-10-13 03:32] LABS: Hematocrit 26.5 % (39.0-52.0); Hemoglobin 8.9 g/dL (13.0-18.0); Mean Corp Hgb Conc. 33.6 g/dL (33.0-37.0); Mean Corpuscular Hgb 29.1 pg (27.0-31.0); Mean Corpuscular Volume 86.6 fL (80.0-94.0); Mean Platelet Volume 11.2 fL (7.4-10.4); Platelet Count 141 10^3/uL (130-400); Red Blood Cell Count 3.06 10^6/uL (4.70-6.10); Red Cell Dist. Width 18.5 % (11.5-14.5); White Blood Cell Count 5.8 10^3/uL (4.8-10.8)
[2023-10-13 03:46] LABS: APTT 80.6 Sec (23.4-35.0)
[2023-10-13 04:11] LABS: Blood Urea Nitrogen 42 mg/dl (9-20); Calcium 9.4 mg/dl (8.4-10.2); Carbon Dioxide 25 mmol/L (22-30); Chloride 103 mmol/L (98-107); Estimated Creatinine Clearance 30 ml/min; Glucose 87 mg/dl (70-99); Sodium 136 mmol/L (135-145); eGFR 32.71
--- NOTE | 2023-10-13 05:03 | W.PN.CT ---
Today's Communication / Plan
-
Plan:
-Cont. current medical management per primary team
-Cont. current meds (ASA, Heparin gtt, Lipitor, Toprol XL, Norvasc; avoid DEMIAN-I/ARBs 24-48hrs prior to CABG)
-Ongoing preop evaluation
-For CABG (1st case) by Dr. Lafleur tomorrow, 10/14
-Will stop heparin gtt python web developer to OR
-Will cont. to closely monitor
Assessment / Plan
-
Assessment:
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
-Exertional angina
-Normal LV function without significant valvular disease per echo 08/02/23
-PAD
-RANDY stenosis (>70%), per u/s 10/09/22
-HTN
-HLD
-CKD 4 (cr 2.4)
-Chronic iron deficiency anemia
-BPH, on finasteride
-COPD
-IRINA (uses CPAP)
-Former tobacco use (quit 20 yrs ago)
-GERD
-DJD spine
-Prediabetes (A1C 5.7)
-Chronic right otitis media/Eustachian tube dysfunction/Retained Myringotomy tube S/P removal of myringotomy tube from right ear, 10/07/19
-S/P Cholecystectomy
-S/p Repair of femur fracture (50 yrs ago)
Discussed patient care with: Cardiology, Nursing, Pharmacy and Care Team
Subjective
-
Date of Service: October 13, 2023
Pt denies CP/SOB overnight
Objective Data
-
Lab Results
10/13/23 03:18
10/13/23 03:18
PT 15.0 Sec (11.4-14.6) H 10/09/23 16:14
INR 1.20 10/09/23 16:14
APTT 80.6 Sec (23.4-35.0) H 10/13/23 03:18
Vital Signs
Vital Signs
Temp Pulse Resp BP Pulse Ox
98.6 F 68 16 146/51 96
10/13/23 03:21 10/13/23 03:21 10/13/23 03:21 10/13/23 03:21 10/13/23 03:21
CT Intake/Output/Weight
10/12/23 10/12/23 10/13/23
06:59 18:59 06:59
Intake Total 408 / 628 504 / 504
Balance 408 / 628 504 / 504
SaO2: 96 (RA)
Physical Exam
-
General: Awake, Oriented and AOx3
Cardiovascular: Regular rate & rhythm and No Murmurs
Respiratory: Clear
Extremities: No Edema
Data Reviewed
-
Lab Results: Results Reviewed
Medications: Active Meds Reviewed
Chest X-Ray: Report Reviewed and Image Reviewed
ECG: Report Reviewed and Image Reviewed
[2023-10-13 05:55] VITALS: BMI 26.2
[2023-10-13] MEDS: SPIRIVA RESPIMAT 2.5 MCG 2 PUFF INH (08:10)
[2023-10-13] MEDS: STRIVERDI RESPIMAT 2 PUFF INH (08:10)
[2023-10-13 08:13] VITALS: BP 169/57
[2023-10-13] MEDS: SENOKOT-S 1 TABLET PO ×2 (08:50→20:03)
[2023-10-13] MEDS: NORVASC 7.5 MG PO (08:50)
[2023-10-13] MEDS: PROTONIX 40 MG PO ×2 (08:50→17:24)
[2023-10-13] MEDS: APRESOLINE 50 MG PO (08:51)
[2023-10-13] MEDS: TOPROL XL 25 MG PO (08:51)
[2023-10-13] MEDS: VITAMIN C 500 MG PO (08:52)
[2023-10-13 12:07] VITALS: BP 129/48
--- NOTE | 2023-10-13 12:29 | W.PN.CARDCBS ---
Today's Communication / Plan
-
Heparin renewed
Hydralazine increased to 75 mg twice daily
Awaiting CABG
Impression / Plan
-
PCP: Dr. Renita Ward
Career Discovery Teacher: Dr. Magana ([facility] Cardiology)
Impression:
CAD
3-vessel CAD with significant LM disease by cath 10/09/2023
PAD
HTN
HLD
CKD 4
COPD
Chronic ALEC
GERD
IRINA on CPAP
Nuclear stress test 10/02/2023: moderate to large size and moderate in severity perfusion defect involving the basal to apical inferior wall noted on rest imaging. This improves substantially on stress images. Positive stress ECG criteria at 4 minutes
of exercise, achieving 2.3 METs of activity .
[facility] 10/09/2023: LM diffusely diseased with long 70% stenosis. LAD: Heavily calcified with mild to moderate luminal irregularities and at worst a smooth long 40 to 50% mid stenosis. LCx: Heavy calcification in the mid circumflex associated with a
50% stenosis extending into the large third obtuse marginal branch. RCA: Diffuse luminal irregularities throughout the RCA with a long proximal 40% stenosis and a more severe focal mid 60% stenosis before the acute margin. Smooth 50% stenosis in
the ostial/proximal PDA.
Echo 08/02/2023: EF 55-60%, moderate cLVH, no significant valvular disease
Plan:
Stable without chest pain. Continues on heparin drip. Blood pressure remains mildly elevated. Multivessel coronary disease noted as above.
Coronary artery disease
-Presented for [facility] with Dr. Magana after experiencing exertional chest discomfort with abnormal stress test as noted.
-[facility] found multivessel CAD and patient was evaluated by CT surgery. Tentatively planned for 10/14/23 w/ Dr. Lafleur.
-Continue aspirin
Carotid artery disease
-Carotid US noted >70% stenosis of the R ICA. Will need to be closely followed as an outpatient.
CKD
-CKD 4 noted, being followed by nephrology. Creat overall stable at 2.0, 10/13/2023. Lasix and benazepril on hold.
-Minimal edema noted
Hypertension
-Blood pressure is mildly elevated
-Continue hydralazine, amlodipine, and Toprol. Toprol new this admission. Have increased hydralazine.
Cardiovascular risk factors
-Continue risk factor modification
-Continue lipitor. LDL 55.
-Hgb A1c 5.7%
Anemia
-Followed by nephrology and primary service
Progress Note - Career Discovery Teacher
Subjective
Date of Service: October 13, 2023
He denies chest pain, palpitations, dizziness and syncope
Objective
Labs:
10/13/23 03:18
10/13/23 03:18
Labs
Hgb 8.9 g/dL (13.0-18.0) L 10/13/23 03:18
Hct 26.5 % (39.0-52.0) L 10/13/23 03:18
Plt Count 141 10^3/uL (130-400) 10/13/23 03:18
PT 15.0 Sec (11.4-14.6) H 10/09/23 16:14
INR 1.20 10/09/23 16:14
APTT 80.6 Sec (23.4-35.0) H 10/13/23 03:18
Sodium 136 mmol/L (135-145) 10/13/23 03:18
Potassium 4.0 mmol/L (3.5-5.1) 10/13/23 03:18
BUN 42 mg/dl (9-20) H 10/13/23 03:18
Creatinine 2.0 mg/dL (0.7-1.3) H 10/13/23 03:18
Glucose 87 mg/dl (70-99) 10/13/23 03:18
Vital Signs and I&O:
Vital Signs
Temp Pulse Resp BP Pulse Ox
98.4 F 59 20 169/57 97
10/13/23 12:05 10/13/23 09:45 10/13/23 12:05 10/13/23 08:51 10/13/23 12:05
Vital Signs
Temp Pulse Resp BP Pulse Ox
98.4 F 59 20 169/57 97
10/13/23 12:05 10/13/23 09:45 10/13/23 12:05 10/13/23 08:51 10/13/23 12:05
Intake & Output
10/11/23 10/12/23 10/13/23 10/14/23
06:59 06:59 06:59 06:59
Intake Total 960 / 960 628 / 628 504 / 504
Balance 960 / 960 628 / 628 504 / 504
Physical Exam
Physical Exam
General: Well developed, well nourished in NAD.
Heart: Non displaced PMI, RRR, no murmurs, No S3, S4, no rubs.
Lungs: Clear to auscultation bilaterally, no wheeze, rhonchi, rubs bilaterally,
Extremities: No clubbing, cyanosis or and trace edema bilaterally.
Neuro: Grossly nonfocal, awake, alert and oriented x3.
--- NOTE | 2023-10-13 12:44 | W.PN.NEPH.PH ---
Today's Communication / Plan
-
- plan for cath tomorrow
- Cr stable
Assessment/Plan
-
Impression:
Status postcardiac catheterization 10/09 with noted 3V disease
Chronic kidney disease stage IV (2.4)
Longstanding uncontrolled hypertension with negative secondary hypertensive work
Anemia on chronic BOBO
Peripheral arterial disease with active claudication
COPD
Plan:
CKD stage IV
-Creatinine stable at 2 post cath
-I suspect the patient's etiology of his kidney disease is related to ischemic nephropathy and/or hypertensive nephrosclerosis as per review of his outpatient nephrology workup
-Most recent urinalysis noted only 1+ proteinuria ~800 mg
-I suspect the recent rise in his creatinine was due to the administration of Lasix which was enacted as an outpatient prior to this hospitalization
-His kidney ultrasound and renal artery duplex were all within normal limits
-Benazepril and Lasix should be held for now
-I explained to the patient that he is at increased risk for continued renal decline following his cardiac catheterization and would be at an increased risk for renal failure (possibly HD dependent) following a CABG procedure given his
comorbidities ,age,and CKD stage 4. patient is amenable to emergent dialysis if needed discussed on 10/12
-
-
Date of Service: October 13, 2023
CC / HPI / ROS
-
Chief Complaint:
ckd
History of Present Illness:
Creatinine stable at 2.0 post catheterization which was performed 10/09/2023
Blood pressure stable on current antihypertensive
Review of Systems:
non olguric
no fevers
no sob
Labs
-
Labs:
WBC 5.8 10^3/uL (4.8-10.8) 10/13/23 03:18
RBC 3.06 10^6/uL (4.70-6.10) L 10/13/23 03:18
Hgb 8.9 g/dL (13.0-18.0) L 10/13/23 03:18
Hct 26.5 % (39.0-52.0) L 10/13/23 03:18
Plt Count 141 10^3/uL (130-400) 10/13/23 03:18
Sodium 136 mmol/L (135-145) 10/13/23 03:18
Potassium 4.0 mmol/L (3.5-5.1) 10/13/23 03:18
Chloride 103 mmol/L (98-107) 10/13/23 03:18
Carbon Dioxide 25 mmol/L (22-30) 10/13/23 03:18
BUN 42 mg/dl (9-20) H 10/13/23 03:18
Creatinine 2.0 mg/dL (0.7-1.3) H 10/13/23 03:18
eGFR 32.71 10/13/23 03:18
Glucose 87 mg/dl (70-99) 10/13/23 03:18
Calcium 9.4 mg/dl (8.4-10.2) 10/13/23 03:18
Albumin 3.8 g/dl (3.5-5.0) 10/09/23 16:14
Physical Exam
-
Vital Signs:
Vital Signs
Temp Pulse Resp BP Pulse Ox
98.4 F 59 20 169/57 97
10/13/23 12:05 10/13/23 09:45 10/13/23 12:05 10/13/23 08:51 10/13/23 12:05
Cardiovascular:: Regular rate and rhythm
Respiratory:: Bilateral: CTA
Lung Excursion:: Normal
Abdomen:: Nontender and Soft
Bowel Sounds:: Normal
Extremity Edema:: None: Bilateral:
Hanna Catheter: No
[2023-10-13] MEDS: FERRLECIT 110 MG IV (14:31)
[2023-10-13 15:41] VITALS: BP 131/49
--- NOTE | 2023-10-13 17:47 | PTCARENOTE ---
at bedside. reviewed with patient and instructions before surgery, both verbalizes understanding.
[2023-10-13 20:00] VITALS: BP 164/73
[2023-10-13] MEDS: APRESOLINE 75 MG PO (20:03)
[2023-10-13] MEDS: HEPARIN 25000 UNITS/250 ML IV (21:53)
[2023-10-13 22:57] VITALS: BP 166/63
[2023-10-13] MEDS: LIPITOR 40 MG PO (23:00)
[2023-10-13] MEDS: NEURONTIN 300 MG PO (23:00)
[2023-10-13] MEDS: HYTRIN 10 MG PO (23:00)
[2023-10-13] MEDS: PROSCAR 5 MG PO (23:00)
[2023-10-13] MEDS: ASPIR LOW (ENTERIC COATED) 81 MG PO (23:00)
[2023-10-14] VITALS (20 sets, daily range): BP systolic 74–172; BP diastolic 47–69; BMI 26.1
--- NOTE | 2023-10-14 01:09 | PTCARENOTE ---
Assumed care of patient at change of shift. Patient AAOx3 and ambulates self in room w/out difficulty. Denies any dizziness. Tele monitor shows SR w/ occasional PACs/ PVCs. HR in the 60-90's. Denies any chest pain or discomfort. IV heparin gtt
infusing at 12ml/hr. 1st round of prep completed. Patient instructed to remain NPO at midnight. Call nicholson in reach.
[2023-10-14 05:17] LABS: Hematocrit 27.5 % (39.0-52.0); Hemoglobin 9.3 g/dL (13.0-18.0); Mean Corp Hgb Conc. 33.8 g/dL (33.0-37.0); Mean Corpuscular Hgb 29.4 pg (27.0-31.0); Mean Platelet Volume 11.2 fL (7.4-10.4); Platelet Count 147 10^3/uL (130-400); Red Blood Cell Count 3.16 10^6/uL (4.70-6.10); Red Cell Dist. Width 18.6 % (11.5-14.5); White Blood Cell Count 6.5 10^3/uL (4.8-10.8)
[2023-10-14 05:42] LABS: APTT 94.5 Sec (23.4-35.0)
[2023-10-14] MEDS: PROTONIX 40 MG PO (06:38)
[2023-10-14] MEDS: MAGNESIUM OXIDE 500 MG PO (06:38)
[2023-10-14] MEDS: BACTROBAN 2% OINTMENT 1 APPLIC NASAL ×2 (06:38→20:15)
[2023-10-14] MEDS: LOPRESSOR 12.5 MG PO (06:38)
[2023-10-14 06:40] LABS: Blood Urea Nitrogen 40 mg/dl (9-20); Calcium 9.3 mg/dl (8.4-10.2); Carbon Dioxide 26 mmol/L (22-30); Chloride 103 mmol/L (98-107); Estimated Creatinine Clearance 28 ml/min; Glucose 89 mg/dl (70-99); Magnesium 1.6 mg/dl (1.6-2.3); Potassium 4.3 mmol/L (3.5-5.1); Sodium 138 mmol/L (135-145); eGFR 29.17
--- NOTE | 2023-10-14 06:50 | W.CVOR.SURPR ---
CVOR Surgeon Immed Pre Op
-
I have examined this patient prior to performance of the scheduled procedure.
The patient's condition is unchanged from the time of the dictated/written History and
Physical and the patient is able to undergo the scheduled procedure.
High Risk CABG + ALANA Clip
[2023-10-14 07:13] LABS: ACT+ - POC 87 Seconds (82-134)
[2023-10-14 07:17] LABS: B.E. - POC -0.5 mmol/L; Glucose - POC 85 mg/dl (65-99); HCO3 - POC 25 mmol/L (21-29); Hematocrit - POC 29 % PCV (42-52); Hemodilution- POC Yes; Hemoglobin Calculated - POC 9.7; Ionized Calcium - POC 1.22 mmol/L (1.12-1.27); PCO2 - POC 41 mmHg (35-45); PO2 - POC 394 mmHg (80-100); Potassium - POC 3.8 mmol/L (3.6-5.0); Sodium - POC 140 mmol/L (135-145); pH - POC 7.39 (7.35-7.45)
[2023-10-14] MEDS: SPIRIVA RESPIMAT 2.5 MCG INH (07:22)
[2023-10-14] MEDS: STRIVERDI RESPIMAT INH (07:23)
[2023-10-14 08:06] LABS: Urine Albumin 1+ (Neg - Trace); Urine Bilirubin Negative (Negative); Urine Character Clear (Clear); Urine Color Yellow; Urine Glucose Negative (Negative); Urine Ketone Negative (Negative); Urine Leukocyte Negative (Negative); Urine Nitrite Negative (Negative); Urine Occult Blood Negative (Negative); Urine Urobilinogen Negative (Neg - 1+)
[2023-10-14 08:14] LABS: Urine Bacteria Few (Negative); Urine Red Blood Cell 0-2 /HPF (0-2); Urine White Cell 0-2 /HPF (0-5)
[2023-10-14 08:58] LABS: ACT+ - POC 561 Seconds (82-134)
[2023-10-14 09:11] LABS: ACT+ - POC 489 Seconds (82-134)
[2023-10-14 09:26] LABS: B.E. - POC 0.2 mmol/L; Glucose - POC 110 mg/dl (65-99); HCO3 - POC 26 mmol/L (21-29); Hematocrit - POC 22 % PCV (42-52); Hemodilution- POC Yes; Hemoglobin Calculated - POC 7.4; Ionized Calcium - POC 1.13 mmol/L (1.12-1.27); O2 Saturation %Calculated-POC 99.9 5 (92-96); PCO2 - POC 47 mmHg (35-45); PO2 - POC 298 mmHg (80-100); Potassium - POC 4.5 mmol/L (3.6-5.0); Sodium - POC 138 mmol/L (135-145); pH - POC 7.35 (7.35-7.45)
[2023-10-14 09:28] LABS: ACT+ - POC 554 Seconds (82-134)
[2023-10-14 09:45] LABS: Glucose - POC 142 mg/dl (65-99); HCO3 - POC 25 mmol/L (21-29); Hematocrit - POC 25 % PCV (42-52); Hemodilution- POC Yes; Hemoglobin Calculated - POC 8.3; Ionized Calcium - POC 1.09 mmol/L (1.12-1.27); O2 Saturation %Calculated-POC 99.9 5 (92-96); PCO2 - POC 38 mmHg (35-45); PO2 - POC 300 mmHg (80-100); Potassium - POC 5.1 mmol/L (3.6-5.0); Sodium - POC 136 mmol/L (135-145); pH - POC 7.42 (7.35-7.45)
[2023-10-14 09:50] LABS: ACT+ - POC 550 Seconds (82-134)
[2023-10-14 10:17] LABS: ACT+ - POC 85 Seconds (82-134)
[2023-10-14 10:22] LABS: B.E. - POC -1.8 mmol/L; Glucose - POC 125 mg/dl (65-99); HCO3 - POC 24 mmol/L (21-29); Hematocrit - POC 28 % PCV (42-52); Hemodilution- POC Yes; Hemoglobin Calculated - POC 9.4; Ionized Calcium - POC 1.35 mmol/L (1.12-1.27); O2 Saturation %Calculated-POC 99.7 5 (92-96); PCO2 - POC 47 mmHg (35-45); PO2 - POC 220 mmHg (80-100); Potassium - POC 4.2 mmol/L (3.6-5.0); Sodium - POC 140 mmol/L (135-145); pH - POC 7.33 (7.35-7.45)
--- NOTE | 2023-10-14 10:52 | W.PN.UPDATE ---
Update Note
Progress Note Update
82 YEAR OLD MALE electively admitted 10/[address] Lafleur
IV fluids: 1000cc
U.O.:� 300cc
Blood:� 1PRBC
Wires:� V-wires
Inotropes:� none
Pressors:� Levophed @ 10
Sedatives:� Precedex @ 0.5
�
NEURO: pupils +1mm B/L, sedated on Precedex, no spontaneous movements
RESP: #8OT @24cm> 14/500/60%/5. Lungs clear B/L. 2 mediastinal (5cc on arrival) and L pleural (0cc on arrival) chest tubes to -20cm suction. Sanguineous drainage
CV: RRR +S1, S2, no S3, no�rub, no murmur. Dermabond to median sternotomy. RIJ w/Cumming locked @ 64cm. PA 32/20; CVP 16; C.O 6.3/CI 3.1/SVR 686; dP/dt 850
ABD: round, soft, no BS
EXT: no edema, +2/4 DP pulses B/L, no femoral bruit, RLE DEMIAN wrap intact; right radial A-line intact
: Hanna with clear yellow urine
�
A/P: POD #0 s/p CABG X 3 MELÉNDEZ-LAD; RSVG-OM; RSVG-RPDA
JACQUE: EF�60%
- wean and extubate
# CAD
- will require ASA/Plavix, statin (high dose), beta-ivan
# HTN
- resume amlodipine 5mg daily, hydralazine 50mg BID as BP permits
# CKD III
- trend UO/creatinine
- resume DEMIAN as BP/creat permit
# COPD
- Albuterol inhaler prn
- resume Epidiolex/Anoro Ellipta inhaler s/p extubation
# IRINA
- CPAP HS when extubated
# BPH
- resume Finasteride 5mg HS and Terazosin 10mg HS
�
# acute surgical blood loss anemia on chronic anemia from CKD-expected
- trend CBC
- Epogen 2000units SC q 2 weeks
�
�
# pre diabetes (A1C 5.7)
- insulin infusion x 24h, then transition to SSI
�
--- NOTE | 2023-10-14 11:02 | W.PN.CT.SURG ---
CT Surgery Operative Note
-
CARDIAC SURGERY OPERATIVE REPORT
Preoperative Diagnosis: Multivessel Coronary Artery Disease with involving the distal left main
Postoperative Diagnosis: Same
Procedure(s) Performed:
1. Standard sternotomy with aortic and right atrial cannulation
2. Coronary artery bypass grafting x 3 (In situ MELÉNDEZ to LAD, Ao to RSVG to OM 3, Ao to RSVG to RPDA)
3. Left atrial appendage exclusion
4. Endoscopic vein harvesting of right lower extremity
5. Placement of temporary ventricular pacing wire
6. Transesophageal echocardiography
Date of Surgery: 10/14/2023
Comorbidities:
1. Multivessel coronary disease involving the left main
2. Abnormal stress test
3. Hypertension
4. Hyperlipidemia
5. CKD stage IV, not yet dialysis dependent, makes urine with normal electrolytes
6. BPH
7. GERD
8. Anemia of chronic disease on Epogen
9. Mild COPD
10. Moderately severe carotid artery disease
Attending Surgeon: Chung Lafleur MD, MS
Assistants: Chung Donato PA-C (present and necessary to personal injury legal assistant, endoscopic vein harvest, retraction, suction, exposure, suture management, and wound closure under my direction)
Anesthesiology: Last Romo MD and Lizzie Brunner CRNA
Scrub and Circulating RNs: Annika Cisneros RN, Precious Altamirano RN
Earth Science Faculty Member: Olivia Gonzalez CCP
Anesthesia: GETA
EBL: per perfusion records
Products: 1 PRBC
CPB Time: 58 minutes
Aortic Cross Clamp Time: 46 minutes
Indication(s) for Procedures: This is a 82-year-old male who was found to have distal left main disease with a large piece of calcium right at the ostium of the circumflex vessel. He was found to have abnormal stress study which led left left heart
cath. Due to his CKD stage IV, he is at high risk for requiring dialysis either temporary or permanently afterwards. Multidisciplinary team discussion was performed. The patient and his understood the risks and opted to move forward with
surgery given the disease pattern and difficulty with PCI.
Conduit(s) Quality:
MELÉNDEZ -excellent/excellent flow in the wales MELÉNDEZ
RSVG -good quality/minor varicosities but overall relatively uniform in length, mildly thickened
Target(s) Quality:
RCA/PDA -excellent/flow probe assessment demonstrated excellent flow with a low pulsatility index
OM -excellent/flow probe assessment demonstrated excellent flow and a low pulsatility index
LAD -excellent/excellent visual flow in the LAD territory after grafting. There was excellent flow and pulsatility index
Findings: Ventricular ejection fraction preoperatively was 65% without any regional wall motion abnormalities. His heart rate at baseline was in the 40s sinus. Following surgery his heart rate was sinus in the 60s and EF was approximate 65%
without any regional wall motion abnormalities. Cardiac index was initially greater than 3 without any inotropic support and then leveled off to a more appropriate 2.0-3.0. The MELÉNDEZ was harvested in a skeletonized fashion. Following bypass
grafting, test dose cardioplegia was given down each distal and confirmed patency and hemostasis. Each distal was probed both proximally and distally to confirm disease and patency, respectively. Flow probe assessment of the graft demonstrated
excellent flow with low pulsatility indices. He did appear to be vasoplegic with an SVR of approximately 500-600 after cardiopulmonary bypass. He was placed on Levophed and also given 1 unit of PRBCs as he was anemic preoperatively with a
hemoglobin in the 8-9 range. The left atrial appendage was verified to be free of any thrombus or debris preoperatively. After surgery and placement of a 35 mm clip it was found to be totally occlusive with no flow.
Description of Procedure: The patient was taken to the operating room. Their identity and procedure to be performed were verified and they were positioned supine on the operating table. Induction via general anesthesia with endotracheal intubation
was performed and central venous access and arterial monitoring were inserted. A preoperative transesophageal echocardiogram was performed to assess cardiac function and valvular function. The patient was then prepped and draped from chin to feet in
a sterile fashion. A preoperative time-out was performed with all members of the team present. A midline chest incision was performed along with median sternotomy. Simultaneous endoscopic access of the right lower extremity for saphenous vein
harvest was obtained along with administration of an initial 5,000 units of IV heparin. A RulTract sternal retractor was positioned to exposure the left internal mammary bed. The mammary was harvested and found to have good flow. A bulldog clamp was
applied to the distal end of the mammary after dividing it. It was wrapped in a papaverine soaked RayTec and replaced back into the left hemithorax. The RulTract was exchanged for a median sternal retractor. The innominate vein was isolated. Full
heparinization was given (a total of 55,000 units). We created a pericardial well. The aortic cannulation site was chosen where it was soft, pliable, and free of calcium. Cannulation was performed with an arterial cannula in the ascending aorta and
a triple-stage venous cannula through the right atrial appendage. The arterial cannula line had an appropriate bounce and correlating pressures with test dosing. Next, a root vent/antegrade cannula was inserted into the ascending aorta. The ACT was
confirmed to be over 400 and retrograde autologous priming was performed before commencing cardiopulmonary bypass. The pulmonary artery was away from the aorta to facilitate a clamp site. The aortic cross-clamp was placed after decreasing
the flow on the bypass and mean arterial pressure. A total of 1.2L initial dose of antegrade Del-Nido cardioplegia solution was given and planned for re-dosing every 75 minutes as necessary. There was rapid electro-mechanical arrest of the heart at
400 cc of cardioplegia. The left ventricle was observed for distention on echocardiogram and manual palpation. Cold slush was placed into a sponge and topically on the RV while we systemically cooled to 34 degrees centigrade.
I positioned the heart to expose the distal right coronary at the posterior descending artery. A chilkoot blade was used to expose the coronary and perform the arteriotomy. Coronary Rodriguez scissors were used to enlarge the incision. The saphenous vein
was trimmed and beveled to an appropriate size. The distal anastomosis was performed using 7-0 prolene in an end-to-side fashion. Antegrade cardioplegia was administered into the graft. Appropriate hemostasis and flow were confirmed. The graft was
measured for length to the aorta and cut. A suitable site on the third obtuse marginal was chosen. The left atrial appendage was then measured to 35 mm and a clip was applied flush to the base. We dissected and prepared the distal target in a
similar fashion. An end-to-side anastomosis was created with a 7-0 prolene. Antegrade cardioplegia was administered into the graft. Appropriate hemostasis and flow were confirmed. The graft was measured for length to the aorta and cut. A suitable
target on the mid/distal left anterior descending was identified. We dissected and prepared the distal target in a similar fashion. We retrieved the MELÉNDEZ from the chest and created a pericardial opening while being cognizant of the phrenic nerve to
facilitate the course of the mammary. The distal end of the mammary was prepped and beveled to size. We verified orientation and length of the SMITA and found brisk flow. An end-to-side anastomosis was created with a 7-0 prolene. We temporarily
released the bulldog clamp on the mammary to inspect flow. Perfusion to the LAD territory was visualized and hemostasis was confirmed. The bull clamp was replaced on the mammary. The heart was filled and the root was distended with antegrade
cardioplegia to make final assessment of graft length and orientation. We created 2 aortotomies using a #11 blade then a 4.0mm aortic punch. The proximal anastomoses were created in an end-to-side fashion using 6-0 prolene. At the the same time, we
re-warmed to 36.5 degrees centigrade. The bulldog clamp was removed from the mammary. Temporary bipolar ventricular pacing wires were placed on the base of the right ventricle. The patient was placed in a Trendelenburg position and flows on bypass
were lowered. The aortic cross clamp was removed and flows were slowly brought back up. A 30-gauge needle was used to de-air the vein grafts. All bypass grafts were inspected and were free from kinking or twisting. The distal and proximal
anastomoses appeared hemostatic. Once transesophageal echocardiography appeared satisfactory for de-airing, the flows were temporarily lowered for root vent removal. After verifying acceptable parameters, we initiated weaning from cardiopulmonary
bypass. Once we were off cardiopulmonary bypass, the venous cannula was clamped and removed. A test dose of protamine was administered and the patient was monitored for any adverse reaction before resuming protamine. Once half of the protamine dose
was delivered, pump suckers were turned off and the systolic blood pressure was lowered for aortic decannulation. The aortic cannula was removed and pursestrings were tied down. All cannulation sites were oversewn with a 4-0 prolene. The mammary bed
was inspected and hemostasis was confirmed. Once the mediastinum was hemostatic, 19Fr Kingston drain was placed in the left pleural cavity and two 24Fr Kingston drains were placed within the pericardium. The sternum was approximated with 4 #7 single and 3
#8 double stainless steel wires. Fascia was approximated with #1 vicryl suture. The subcutaneous, dermis and epidermis were closed in layers in a running fashion. The skin wound was cleansed and dressed.
All instrument, sponge, and needle counts were confirmed to be correct x 2 at the end of the operation. The patient was transferred to the cardiac intensive care unit in critical but stable condition.
I, Dr. Chung Lafleur, was present, scrubbed for, and performed all critical elements of this procedure.
Chung Lafleur MD, MS
Cardiothoracic Surgeon
[facility]
This operative dictation was created using the [employer] dictation system. Please excuse any grammatical, typographical, or 'sound alike' errors
[2023-10-14 11:28] LABS: Glucose - Point of Care 112 mg/dl (70-99)
--- NOTE | 2023-10-14 11:37 | CM ---
Chart reviewed. Patient is in the OR today. Patient is independent of ADLS, lives with his significant other in a 2 STH, 0 DME. Plan is for the patient to return home. CM to follow
[2023-10-14 11:38] LABS: B.E. -1.3 mmol/L; HCO3 25.2 mmol/L (21-28); Hematocrit 26.1 % (39.0-52.0); Hemoglobin 8.7 g/dL (13.0-18.0); Ionized Calcium 1.27 mMOL/L (1.15-1.33); Mixed Venous O2 Saturation 83.7 %; O2 Saturation % 99.2 % (94-98); PCO2 50 mmHg (35-48); PO2 171 mmHg (83-108); Platelet Count 100 10^3/uL (130-400); Potassium 4.5 mMOL/L (3.5-5.1); Sodium 137 mMOL/L (136-145); pH 7.31 (7.35-7.45)
[2023-10-14 11:45] LABS: INR 1.44; PT 17.4 Sec (11.4-14.6)
[2023-10-14 11:46] LABS: APTT 38.1 Sec (23.4-35.0)
[2023-10-14 11:50] LABS: Blood Urea Nitrogen 35 mg/dl (9-20); Estimated Creatinine Clearance 29 ml/min; Glucose 108 mg/dl (70-99); Magnesium 2.1 mg/dl (1.6-2.3)
--- NOTE | 2023-10-14 11:53 | PTCARENOTE ---
received pt from the [facility] OR into 226, sinus rhythm in tele w epicardial V wire in place, + peripheral pulses, no edema noted, right IJ w swan floated to 53, PAP 31/16, CVP 12. Right radial roman w galindo monitor reading a CO 60./ CI 2.9, SVR 854.
ETT #8/ 24cm right lip, VENT SETTINGS 14/500/60%/+5, POX 96-100%. CT x3 w minimal amount of red drainage, garcia draining yellow.
DRIPS: Levophed 6mcg/min
Precedex 0.5mcg/kg/hr
Insulin titrated per glycemic protocol.
--- NOTE | 2023-10-14 11:56 | CON.INTV ---
Consultation
Consultation Request
Date/Time Consultation Requested: 10/14
Date/Time Consultation Performed: 10/14
Reason for Consultation: Critical care
Medical History
-
History of Present Illness:
History obtained from the chart, outpatient records. Patient currently intubated and sedated. 82-year-old male with history of hypertension, peripheral arterial disease, sleep apnea on CPAP therapy admitted to [facility] 10/09/2023.
Patient has had progressive chest pain over the past few months. Patient had a left heart catheterization which showed triple-vessel disease with significant left main disease. Hospital course noted for chronic kidney disease, creatinine 2.4.
Patient did have full PFTs with 84% FEV1, 73% TLC, 62% DLCO. Treated with heparin therapy, hydralazine, underwent three-vessel CABG on 10/14/2023, requiring 1 unit of transfusion, norepinephrine. We are asked to help from critical care standpoint
.
PMH: Hypertension, hyperlipidemia, peripheral arterial disease, COPD, sleep apnea on CPAP therapy, chronic kidney disease
Past Medical History
Past Medical History: None (See above)
Past Surgical History: None (See above)
Social History
Tobacco: Former Smoker (Quit 20 years ago)
Alcohol: Occasional
Drug: None
Personal:
Living: With Family
Employment: Retired (Tree surgeon)
Family History
Family History: Other (Mother from lung cancer, father from valvular disease)
Allergies / Home Medications
Allergies
Allergy/AdvReac Type Severity Reaction Status Date / Time
No Known Allergies Allergy Unverified 10/09/23 10:02
Home Medications
Medication Instructions Recorded Confirmed Last Taken Type
amlodipine 2.5 mg tablet 5 mg PO DAILY Blood Pressure 10/05/19 10/09/23 10/09/23 07:00 History
ascorbic acid (vitamin C) 1,000 mg 1,000 mg PO DAILY Supplement 10/05/19 10/09/23 10/08/23 08:00 History
tablet (Vitamin C)
aspirin 81 mg tablet,delayed 81 mg PO HS Blood Clot 10/05/19 10/09/23 10/08/23 22:00 History
release Prevention/Tx
atorvastatin 40 mg tablet (Lipitor) 40 mg PO HS High Cholesterol 10/05/19 10/09/23 10/08/23 22:00 History
cholecalciferol (vitamin D3) 25 50 mcg PO DAILY Supplement 10/05/19 10/09/23 10/08/23 08:00 History
mcg (1,000 unit) capsule (Vitamin
D3)
cyanocobalamin (vitamin B-12) 1,000 mcg PO DAILY Supplement 10/05/19 10/09/23 10/08/23 07:00 History
1,000 mcg tablet
finasteride 5 mg tablet 5 mg PO HS Urinary Issue 10/05/19 10/09/23 10/08/23 22:00 History
fish oil-dha-epa 1,200 mg-144 1 ea PO DAILY Supplement 10/05/19 10/09/23 10/08/23 08:00 History
mg-216 mg capsule
terazosin 10 mg capsule (Hytrin) 10 mg PO HS 10/05/19 10/09/23 10/08/23 22:00 History
cannabidiol 100 mg/mL oral 1 mg inhalation QPM Seizures 10/07/19 10/09/23 10/06/23 19:00 History
solution (Epidiolex)
albuterol sulfate 90 mcg/actuation 1 puff inhalation QID PRN 10/09/23 10/09/23 Unknown History
aerosol inhaler wheezing/dyspnea
benazepril 20 mg tablet 20 mg PO DAILY Blood Pressure 10/09/23 10/09/23 10/09/23 07:00 History
epoetin naila 2,000 unit/mL 2,000 unit SC Q2W Low red blood 10/09/23 10/09/23 10/02/23 10:00 History
injection solution (Procrit) cells
furosemide 40 mg tablet 40 mg PO DAILY Fluid 10/09/23 10/09/23 10/08/23 07:00 History
Retention/Swelling
gabapentin 300 mg tablet 300 mg PO HS Neurological Condition 10/09/23 10/09/23 10/08/23 22:00 History
hydralazine 50 mg tablet 50 mg PO BID Blood Pressure 10/09/23 10/09/23 10/09/23 07:00 History
multivitamin 1 tab PO DAILY Supplement 10/09/23 10/09/23 10/08/23 07:00 History
omeprazole 20 mg tablet,delayed 20 mg PO BID@0800,1700 10/09/23 10/09/23 10/08/23 17:00 History
release Gastrointestinal Issue
umeclidinium 62.5 mcg-vilanterol 1 inh inhalation DAILY 10/09/23 10/09/23 10/08/23 07:00 History
25 mcg/actuation powdr for Lung/Breathing Issues
inhalation (Anoro Ellipta)
Review of Systems
-
Unable to Obtain full review of systems at this time due to: Patient Intubation
Vitals / Labs / Diagnostic Testing
Vital Signs
Temp Pulse Resp BP Pulse Ox
95.6 F L 63 12 172/69 100
10/14/23 11:30 10/14/23 11:45 10/14/23 11:45 10/14/23 06:38 10/14/23 11:52
Lab Data
10/14/23 11:24
Laboratory Results
10/14/23 10/14/23 10/14/23
05:07 11:24 11:25
PT 17.4 H
INR 1.44
APTT 94.5 H 38.1 H
pH 7.31 L
pCO2 50 H
pO2 171 H
HCO3 25.2
O2 Delivery Level
Diagnostic Testing:
Physical Exam
-
HEENT: Normocephalic, Anicteric, Other (Right IJ, right upper extremity A-line) and Other (Chest tube with minimal drainage, no airleak)
Cardiovascular: S1/S2, Regular Rhythm, Murmur (n), Rub (n), Peripheral Edema and Other (Right lower extremity bandage)
Respiratory: Wheeze (n), Rales (n), Rhonchi (n), Non-Labored Respirations and Other (ET tube)
GI: Soft and Non Distended
Neurology: Other (Sedated)
Skin: Other (No clubbing, no cyanosis, no rash)
General: Comfortable
Assessment
-
82-year-old male with history of hypertension, COPD, sleep apnea on CPAP therapy, triple-vessel coronary disease, left main disease, s/p CABG x 3, left atrial appendage exclusion on 10/14/2023. We are asked to help from critical care standpoint
S/p CABG x 3, 10/14/23
Triple-vessel disease, left main disease
Abnormal stress test, progressive symptoms
Anemia requiring transfusion
Conditions present prior to admission
Subpleural interstitial changes per CT imaging
Right lower lobe nodule
Hypertension/hyperlipidemia
Chronic kidney disease stage IV
Creatinine 2.4
BPH
GERD
History of COPD
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
Sleep apnea on CPAP therapy
Peripheral arterial disease, carotid disease
Distant tobacco history
Family history of lung cancer (mother)
Plan/recommendations
At this time, patient remains critically ill, on volume-cycled ventilation, adequate airway pressures, adequate oxygenation weaned down to 40%
Received 1 unit transfusion
Requiring low-dose norepinephrine
Chest x-ray unremarkable
Chest tube with minimal drainage
Moving forward
Continue with management per CT surgery
Anticipate extubation later today, continue weaning protocol per surgery
Pressors being weaned
Cardiac index appears to be adequate
Chest tube output minimal, following hemoglobin
Preoperative ABG with adequate oxygenation/ventilation
Postoperative ABG with mild CO2 retention
History of sleep apnea, records suggest CPAP therapy
Positional therapy postextubation as able
Follow for CO2 retention with sedation/pain management
Preoperative PFTs with mild restriction, mild gas exchange defect
Reviewed CT chest 10/09/2023. Subpleural interstitial changes, bullae
There is a 7 mm right lower lobe nodule along the fissure, diaphragmatic border which is noncalcified
Another nodule which is calcified
Distant smoking history noted. Would recommend follow-up CT chest in 6 months
DVT prophylaxis, GI prophylaxis per CT surgery protocol
Reviewed with critical care nursing
We will follow
TCCT 31 min
--- NOTE | 2023-10-14 12:20 | W.PN.NEPH.PH ---
Today's Communication / Plan
-
follow labs
Assessment/Plan
-
Impression:
Status postcardiac catheterization 10/09 with noted 3V disease s/p CABG x3 10/14
Chronic kidney disease stage IV (2.4)
Longstanding uncontrolled hypertension with negative secondary hypertensive work
Anemia on chronic BOBO
Peripheral arterial disease with active claudication
COPD
Plan:
s/p CABG today
cr remains stable, follow labs later today
monitor UOP, pt was aware of risk of HD post op
wean pressors as able
cont supportive care per surg
d/w nursing
-
-
Date of Service: October 14, 2023
CC / HPI / ROS
-
Chief Complaint:
ckd
History of Present Illness:
Creatinine stable at 2.1,
s/p CABG 10/14
hypotension on pressor
hb 8.7 s/p 1 unit in OR
Review of Systems:
non olguric
no fevers
intubated
Labs
-
Labs:
WBC 6.5 10^3/uL (4.8-10.8) 10/14/23 05:07
RBC 3.16 10^6/uL (4.70-6.10) L 10/14/23 05:07
Sodium 138 mmol/L (135-145) 10/14/23 05:07
Potassium 4.3 mmol/L (3.5-5.1) 10/14/23 05:07
Chloride 103 mmol/L (98-107) 10/14/23 05:07
Carbon Dioxide 26 mmol/L (22-30) 10/14/23 05:07
BUN 35 mg/dl (9-20) H 10/14/23 11:24
Creatinine 2.1 mg/dL (0.7-1.3) H 10/14/23 11:24
eGFR 29.17 10/14/23 05:07
Glucose 108 mg/dl (70-99) H 10/14/23 11:24
Calcium 9.3 mg/dl (8.4-10.2) 10/14/23 05:07
Albumin 3.8 g/dl (3.5-5.0) 10/09/23 16:14
Physical Exam
-
Vital Signs:
Vital Signs
Temp Pulse Resp BP Pulse Ox
95.6 F L 63 12 172/69 96
10/14/23 12:00 10/14/23 11:45 10/14/23 11:45 10/14/23 06:38 10/14/23 12:19
Cardiovascular:: Regular rate and rhythm
Lung Excursion:: Abnormal (decreased ,intubated)
Abdomen:: Nontender and Soft
Extremity Edema:: None: Bilateral:
Hanna Catheter: Yes
[2023-10-14 12:29] LABS: Glucose - Point of Care 143 mg/dl (70-99)
--- NOTE | 2023-10-14 12:37 | PTCARENOTE ---
Levophed weaned off, bp via right radial roman 136/52.
[2023-10-14] MEDS: ZINACEF 1500 MG IV ×2 (12:41)
[2023-10-14] MEDS: STERILE WATER FOR INJECTION 16 ML IV ×2 (12:41)
[2023-10-14] MEDS: TYLENOL PO ×4 (12:42→21:40)
[2023-10-14] MEDS: APRESOLINE PO (12:42)
[2023-10-14] MEDS: NSS 500 IV (12:42)
[2023-10-14] MEDS: SENOKOT-S PO (12:43)
[2023-10-14] MEDS: VITAMIN C PO (12:43)
[2023-10-14] MEDS: TOPROL XL PO (12:43)
[2023-10-14] MEDS: PROTONIX PO (12:43)
[2023-10-14] MEDS: NORVASC PO (12:43)
--- NOTE | 2023-10-14 13:00 | PTCARENOTE ---
CO 5.8/ CI 2.8 SVR 805 per galindo monitor.
--- NOTE | 2023-10-14 13:44 | PTCARENOTE ---
family at bedside, updated on plan of care.
[2023-10-14 13:49] LABS: Glucose - Point of Care 119 mg/dl (70-99)
--- NOTE | 2023-10-14 14:07 | PTCARENOTE ---
pt placed on CPAP wean by RT
[2023-10-14 14:43] LABS: Glucose - Point of Care 114 mg/dl (70-99)
--- NOTE | 2023-10-14 14:46 | W.PN.CARDCBS ---
Addendum entered and electronically signed by Zana Aivla MD 10/14/23 15:05:
I saw and examined the patient.
The COMMERCIAL DOOR INSTALLER or PA's note was reviewed and I agree with the note.
Comment: Sedate and intubated
Neck: Supple, no JVD, HJR, carotids +2 B/L, no bruits bilaterally.
Heart: Non displaced PMI, RRR, no murmurs, No S3, S4, no rubs.
Lungs: Scattered rhonchi
Extremities: No clubbing, cyanosis or edema bilaterally.
Neuro: Sedate
Patient seen immediately postop status post three-vessel CABG. Remains in sinus rhythm. Remains on Levophed with a cardiac index of 2.6. Continue postop management. Discussed with nursing and CT surgery. Await repeat renal function post CABG.
Original Note:
Today's Communication / Plan
-
Continue post op care
Impression / Plan
-
PCP: Dr. Renita Ward
Motion Picture Photographer: Dr. Magana ([facility] Cardiology)
Impression:
CAD
3-vessel CAD with significant LM disease by cath 10/09/2023
s/p CABG x 3 (MELÉNDEZ-LAD, RSVG-OM, RSVG-RPDA) 10/14/2023
PAD
HTN
HLD
CKD 4
COPD
Chronic ALEC
GERD
IRINA on CPAP
Nuclear stress test 10/02/2023: moderate to large size and moderate in severity perfusion defect involving the basal to apical inferior wall noted on rest imaging. This improves substantially on stress images. Positive stress ECG criteria at 4 minutes
of exercise, achieving 2.3 METs of activity .
LHC 10/09/2023: LM diffusely diseased with long 70% stenosis. LAD: Heavily calcified with mild to moderate luminal irregularities and at worst a smooth long 40 to 50% mid stenosis. LCx: Heavy calcification in the mid circumflex associated with a
50% stenosis extending into the large third obtuse marginal branch. RCA: Diffuse luminal irregularities throughout the RCA with a long proximal 40% stenosis and a more severe focal mid 60% stenosis before the acute margin. Smooth 50% stenosis in
the ostial/proximal PDA.
Echo 08/02/2023: EF 55-60%, moderate cLVH, no significant valvular disease
Plan:
-Initially presented for [facility] 10/09/2023 and found to have multivessel CAD. s/p CABG x3 10/14/2023 w/ Dr Lafleur as noted above.
-Seen post op, remains intubated, however is waking up and plan is for extubation this afternoon.
-Chronic anemia noted. s/p 1 unit PRBCs intra-op. Hgb 8.7.
-Creat stable at 2.1. Nephrology following. Lasix and benazepril have been on hold this admission.
-On hydralazine, amlodipine, and Toprol pre-op. Resume as able. No longer on pressors.
-Continue aspirin 81 mg daily.
-Continue lipitor 40mg daily. LDL 55.
-Hgb A1c 5.7%
-Carotid US noted >70% stenosis of the R ICA. Will need to be closely followed as an outpatient.
-Continue post op care
Progress Note - Motion Picture Photographer
Subjective
Date of Service: October 14, 2023
Remains intubated, but waking up.
Objective
Labs:
10/14/23 11:24
Labs
Hgb 8.7 g/dL (13.0-18.0) L 10/14/23 11:25
Hct 26.1 % (39.0-52.0) L 10/14/23 11:25
Plt Count 100 10^3/uL (130-400) L D 10/14/23 11:25
PT 17.4 Sec (11.4-14.6) H 10/14/23 11:24
INR 1.44 10/14/23 11:24
APTT 38.1 Sec (23.4-35.0) H 10/14/23 11:24
Sodium 138 mmol/L (135-145) 10/14/23 05:07
Potassium 4.3 mmol/L (3.5-5.1) 10/14/23 05:07
BUN 35 mg/dl (9-20) H 10/14/23 11:24
Creatinine 2.1 mg/dL (0.7-1.3) H 10/14/23 11:24
Glucose 108 mg/dl (70-99) H 10/14/23 11:24
Vital Signs and I&O:
Vital Signs
Temp Pulse Resp BP Pulse Ox
98 F 71 14 110/57 98
10/14/23 14:00 10/14/23 14:00 10/14/23 14:00 10/14/23 14:00 10/14/23 14:08
Vital Signs
Temp Pulse Resp BP Pulse Ox
98 F 71 14 110/57 98
10/14/23 14:00 10/14/23 14:00 10/14/23 14:00 10/14/23 14:00 10/14/23 14:08
Intake & Output
10/12/23 10/13/23 10/14/23 10/15/23
06:59 06:59 06:59 06:59
Intake Total 628 / 628 504 / 504 244 / 244 103.2 / 103.2
Output Total 765 / 765
Balance 628 / 628 504 / 504 244 / 244 -661.8 / -661.8
Physical Exam
Physical Exam
GEN: No distress, intubated
HEENT: supple, anicteric, mmm
LUNGS: CTA b/l, no wheezes/rales
CV: Reg, S1/S2, no murmur
ABD: soft, BS+, NT/ND
EXT: No clubbing, cyanosis, or edema b/l
SKIN: Warm, dry, no rash. Sternal incision well approximated
[2023-10-14 14:52] LABS: B.E. 1.2 mmol/L; HCO3 27.1 mmol/L (21-28); Ionized Calcium 1.26 mMOL/L (1.15-1.33); O2 Saturation % 98.8 % (94-98); PCO2 48 mmHg (35-48); PO2 131 mmHg (83-108); Potassium 4.5 mMOL/L (3.5-5.1); Sodium 137 mMOL/L (136-145); pH 7.36 (7.35-7.45)
[2023-10-14] MEDS: PACERONE PO ×2 (14:54→22:28)
--- NOTE | 2023-10-14 15:05 | RESPNOTE ---
pt extubated to 6 lpm of nasal cannula.
--- NOTE | 2023-10-14 15:16 | PTCARENOTE ---
pt extubated to 6L NC, pox 96%.
--- NOTE | 2023-10-14 15:26 | PTCARENOTE ---
CO 6.5 CI 3.2 SVR 786 via galindo monitor.
[2023-10-14 15:37] LABS: Hematocrit 28.8 % (39.0-52.0); Hemoglobin 9.8 g/dL (13.0-18.0); Platelet Count 109 10^3/uL (130-400)
[2023-10-14] MEDS: LOW STRENGTH ASPIRIN 81 MG PO (15:58)
[2023-10-14 16:02] LABS: Glucose - Point of Care 107 mg/dl (70-99)
--- NOTE | 2023-10-14 17:09 | PTCARENOTE ---
CO 6.5 CI 3.2 SVR 689 per galindo monitor.
[2023-10-14 17:57] LABS: Glucose - Point of Care 127 mg/dl (70-99)
[2023-10-14] MEDS: STERILE WATER FOR INJECTION 8.30000000000000071 ML IV (18:07)
[2023-10-14] MEDS: ZINACEF 750 MG IV (18:07)
--- NOTE | 2023-10-14 19:25 | PTCARENOTE ---
NSR. On 4L. VSS. Pt s/p CVOR - remains with usual lines. MS CT persist with airleak and tidaling. Pt awake and oriented. Tolerating ice chips. Assessment per nursing flowsheet. Insulin gtt per glycemic protocol.
[2023-10-14] MEDS: PEPCID 20 MG IV (20:13)
[2023-10-14] MEDS: MORPHINE SULFATE 2 MG IV ×2 (20:13→22:29)
[2023-10-14] MEDS: SENOKOT-S 1 TABLET PO (20:14)
[2023-10-14] MEDS: NSS (PRESERVATIVE FREE) 8 ML IV (20:14)
[2023-10-14 20:22] LABS: Glucose - Point of Care 113 mg/dl (70-99)
[2023-10-14] MEDS: DILAUDID 0.25 MG IV (21:48)
[2023-10-14] MEDS: LIPITOR 40 MG PO (21:49)
[2023-10-14] MEDS: NEURONTIN 300 MG PO (21:49)
[2023-10-14 21:54] LABS: Glucose - Point of Care 98 mg/dl (70-99)
[2023-10-14] MEDS: ROXICODONE 5 MG PO (22:29)
--- NOTE | 2023-10-14 23:00 | RESPNOTE ---
Pt. requireed help placing himself on his home CPAP, 2 LPM O2 was added at this time. Saturation 99%
[2023-10-15] VITALS (25 sets, daily range): BP systolic 103–136; BP diastolic 46–103; PULSE 68; O2SAT 96; BMI 25.5
--- NOTE | 2023-10-15 | PTCARENOTE ---
NSR with PVCs. VSS. 2L NC. Trial on home CPAP but was desating. Pt with increase sternum pain. PRN medications administered. Stefanie Heredia ordered additional IVP dilaudid for breakthrough pain. Assessment unchanged. Hanna with adequate output.
Remains on insulin gtt per gylcemic protocol.
[2023-10-15 00:04] LABS: Glucose - Point of Care 107 mg/dl (70-99)
[2023-10-15 02:05] LABS: Glucose - Point of Care 104 mg/dl (70-99)
[2023-10-15] MEDS: MORPHINE SULFATE 2 MG IV (02:10)
[2023-10-15] MEDS: TYLENOL PO ×2 (02:21→23:41)
[2023-10-15] MEDS: STERILE WATER FOR INJECTION 8.30000000000000071 ML IV ×2 (02:54→09:15)
[2023-10-15] MEDS: ZINACEF 750 MG IV ×2 (02:55→09:15)
--- NOTE | 2023-10-15 03:21 | W.PN.CT ---
Today's Communication / Plan
-
Plan:
-No major issues overnight. Hemodynamically and neurologically intact
-Successfully extubated yesterday 10/14/23 @ 1500
-Off all drips but insulin per protocol
-Last CI 3.1, U/O since OR 1875 mL
-Monitor chest tube output: 2meds (+ air leak/+1 continuous) 165/370, L pl 20/40. No visible ptx or SQ emphysema noted on cxr this AM, f/u official report
-Cont. current meds (ASA, Amiodarone, Lopressor, Lipitor, Lasix; will add Plavix)
-D/C'd swan and a-line this AM @ 0445
-D/C insulin gtt/transfer to telemetry phase today
-Consider D/C of garcia catheter later in the day given hx of BPH/CKD, on Proscar
-Maintain cordis
-Maintain temporary pacer wires (will cut before d/c home)
-Encourage use of IS
-Wean off of O2
-OOB into chair
-Ambulate
Assessment / Plan
-
Assessment:
-S/P Standard sternotomy with aortic and right atrial cannulation/CABG x 3 (In situ MELÉNDEZ to LAD, Ao to RSVG to OM 3, Ao to RSVG to RPDA)/R EVH/ELAA, by Dr. Lafleur, 10/14/23, pod#1
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
-Exertional angina
-Abnormal stress test
-LVEF 60% per intraop JACQUE
-Mild TR
-Mild MR
-Dilated mid asc. aorta (3.6 cm)
-Mild sessile atheroma @ descending and distal aortic arch
-PAD with claudication
-RANDY stenosis (>70%), per u/s 10/09/22
-HTN
-HLD
-CKD 4 (cr 2.4)
-Anemia of CKD, on Procrit
-BPH, on finasteride
-Mild COPD
-IRINA (uses CPAP)
-Former tobacco use (quit 20 yrs ago)
-GERD
-DJD spine
-Prediabetes (A1C 5.7)
-Chronic right otitis media/Eustachian tube dysfunction/Retained Myringotomy tube S/P removal of myringotomy tube from right ear, 10/07/19
-S/P Cholecystectomy
-S/p Repair of femur fracture (50 yrs ago)
-Acute blood loss on chronic anemia (transfused 1u PRBC)
-Acute postop thrombocytopenia (stable without active bleed)
-Acute postop atelectasis
-Acute postop hypovolemia with subsequent hypervolemia
Discussed patient care with: Cardiology, Nursing, Respiratory Therapy, Pharmacy and Care Team
Subjective
Procedure
Standard sternotomy with aortic and right atrial cannulation/CABG x 3 (In situ MELÉNDEZ to LAD, Ao to RSVG to OM 3, Ao to RSVG to RPDA)/R EVH/ELAA, by Dr. Lafleur, 10/14/23
-
Date of Service: October 15, 2023
Pt c/o incisional pain, otherwise feels well
Objective Data
-
PT 17.4 Sec (11.4-14.6) H 10/14/23 11:24
INR 1.44 10/14/23 11:24
APTT 38.1 Sec (23.4-35.0) H 10/14/23 11:24
Vital Signs
Vital Signs
Temp Pulse Resp BP Pulse Ox
98.7 F 64 17 106/59 95
10/15/23 03:00 10/15/23 02:30 10/15/23 02:30 10/15/23 02:00 10/15/23 02:30
CT Intake/Output/Weight
0210/14/23 10/15/23
06:59 18:59 06:59
Intake Total 144 / 244 208.8 / 555.1 346.3 / 555.1
Output Total 1474 / 2109
Balance 144 / 244 -1266.2 / -1554.9 -288.7 / -1554.9
SaO2: 95 (2L)
Physical Exam
-
General: Awake, Oriented and AOx3
Cardiovascular: Regular rate & rhythm, No Murmurs, Rub and No Gallop
Respiratory: Decreased Breath Sounds
Sternum: Stable
Incision: Clean, Dry, Intact and Dressing Intact
Extremities: Other (+trace edema)
Data Reviewed
-
Lab Results: Results Reviewed
Medications: Active Meds Reviewed
Chest X-Ray: Report Reviewed and Image Reviewed
ECG: Report Reviewed and Image Reviewed
[2023-10-15 04:02] LABS: Hematocrit 27.4 % (39.0-52.0); Hemoglobin 9.4 g/dL (13.0-18.0); Mean Corp Hgb Conc. 34.3 g/dL (33.0-37.0); Mean Corpuscular Hgb 29.5 pg (27.0-31.0); Mean Corpuscular Volume 85.9 fL (80.0-94.0); Mean Platelet Volume 11.2 fL (7.4-10.4); Platelet Count 107 10^3/uL (130-400); Red Blood Cell Count 3.19 10^6/uL (4.70-6.10); Red Cell Dist. Width 18.9 % (11.5-14.5)
[2023-10-15 04:10] LABS: Glucose - Point of Care 102 mg/dl (70-99)
[2023-10-15 04:16] LABS: INR 1.34; PT 16.4 Sec (11.4-14.6)
[2023-10-15 04:25] LABS: Blood Urea Nitrogen 44 mg/dl (9-20); Calcium 9.1 mg/dl (8.4-10.2); Carbon Dioxide 22 mmol/L (22-30); Chloride 104 mmol/L (98-107); Estimated Creatinine Clearance 25 ml/min; Glucose 105 mg/dl (70-99); Potassium 4.6 mmol/L (3.5-5.1); Sodium 138 mmol/L (135-145); eGFR 26.28
--- NOTE | 2023-10-15 04:26 | PTCARENOTE ---
NSR. VSS. Afebrile. Assessment unchanged. Pain decreased. Melquiades d/gunjan, pt had bigem PVCs shortly after removal. Asymptomatic, self resolved. Stefanie Heredia aware. Cynthia d/gunjan.
[2023-10-15] MEDS: ROXICODONE 5 MG PO ×4 (04:51→21:13)
[2023-10-15] MEDS: TYLENOL 650 MG PO ×5 (04:51→20:23)
[2023-10-15 06:21] LABS: Glucose - Point of Care 121 mg/dl (70-99)
--- NOTE | 2023-10-15 07:42 | W.PN.CARDCBS ---
Today's Communication / Plan
-
Stable cardiology status status post CABG on 10/14
Renal function slightly worsening with creatinine of 2.4
Remains in sinus rhythm
Impression / Plan
-
PCP: Dr. Renita Ward
Client Resource Specialist: Dr. Magana ([facility] Cardiology)
Impression:
CAD
3-vessel CAD with significant LM disease by cath 10/09/2023
s/p CABG x 3 (MELÉNDEZ-LAD, RSVG-OM, RSVG-RPDA) 10/14/2023
PAD
HTN
HLD
CKD 4
COPD
Chronic ALEC
GERD
IRINA on CPAP
Carotid US noted >70% stenosis of the R ICA
Nuclear stress test 10/02/2023: moderate to large size and moderate in severity perfusion defect involving the basal to apical inferior wall noted on rest imaging. This improves substantially on stress images. Positive stress ECG criteria at 4 minutes
of exercise, achieving 2.3 METs of activity .
C 10/09/2023: LM diffusely diseased with long 70% stenosis. LAD: Heavily calcified with mild to moderate luminal irregularities and at worst a smooth long 40 to 50% mid stenosis. LCx: Heavy calcification in the mid circumflex associated with a
50% stenosis extending into the large third obtuse marginal branch. RCA: Diffuse luminal irregularities throughout the RCA with a long proximal 40% stenosis and a more severe focal mid 60% stenosis before the acute margin. Smooth 50% stenosis in
the ostial/proximal PDA.
Echo 08/02/2023: EF 55-60%, moderate cLVH, no significant valvular disease
Plan:
Stable cardiology status
Remains in sinus rhythm
Creatinine has worsened slightly to 2.[address] surgery and nurses
Carotid US noted >70% stenosis of the R ICA. Will need to be closely followed as an outpatient.
Progress Note - Client Resource Specialist
Subjective
Date of Service: October 15, 2023
No complaints
Objective
Labs:
10/15/23 03:35
10/15/23 03:35
Labs
Hgb 9.4 g/dL (13.0-18.0) L 10/15/23 03:35
Hct 27.4 % (39.0-52.0) L 10/15/23 03:35
Plt Count 107 10^3/uL (130-400) L 10/15/23 03:35
PT 16.4 Sec (11.4-14.6) H 10/15/23 03:35
INR 1.34 10/15/23 03:35
APTT 38.1 Sec (23.4-35.0) H 10/14/23 11:24
Sodium 138 mmol/L (135-145) 10/15/23 03:35
Potassium 4.6 mmol/L (3.5-5.1) 10/15/23 03:35
BUN 44 mg/dl (9-20) H 10/15/23 03:35
Creatinine 2.4 mg/dL (0.7-1.3) H 10/15/23 03:35
Glucose 105 mg/dl (70-99) H 10/15/23 03:35
Vital Signs and I&O:
Vital Signs
Temp Pulse Resp BP Pulse Ox
98.7 F 67 18 114/48 93
10/15/23 04:00 10/15/23 07:00 10/15/23 04:30 10/15/23 07:00 10/15/23 07:00
Vital Signs
Temp Pulse Resp BP Pulse Ox
98.7 F 67 18 114/48 93
10/15/23 04:00 10/15/23 07:00 10/15/23 04:30 10/15/23 07:00 10/15/23 07:00
Intake & Output
10/13/23 10/14/23 10/15/23 10/16/23
06:59 06:59 06:59 06:59
Intake Total 504 / 504 244 / 244 607.2 / 618.4 11.2 / 11.2
Output Total 2360 / 2400 40 / 40
Balance 504 / 504 244 / 244 -1752.8 / -1781.6 -28.8 / -28.8
Physical Exam
Physical Exam
General: Well developed, well nourished in NAD.
Neck: Supple, no JVD, HJR, carotids +2 B/L, no bruits bilaterally.
Heart: Non displaced PMI, RRR, no murmurs, No S3, S4, no rubs.
Lungs: Scattered rhonchi
Sternal dressings noted
Extremities: No clubbing, cyanosis or edema bilaterally.
Neuro: Grossly nonfocal, awake, alert and oriented x3.
--- NOTE | 2023-10-15 07:43 | W.PN.ANS.POP ---
Anesthesia Post Operative
- Anesthesia Post Op Note
Vital Signs Stable-See Nursing Note: Yes
Airway Patent: Yes
Adequate Pain Control: Yes
Change in Mental Status: No
Current Postoperative Nausea & Vomiting: No
Anesthesia Complications: No
General Anesthetic Recall: No
Unplanned Admission: No
Post Op Hydration Adequate: Yes
--- NOTE | 2023-10-15 07:50 | W.PN.INTV ---
Addendum entered and electronically signed by Vinnie Mckeon MD 10/15/23 13:25:
Patient transferred to telemetry.
We will sign off. Please call with questions
Original Note:
Today's Communication / Plan
Recommendations
Incentive spirometry, pain control
CPAP as needed
Follow hemoglobin, blood sugars
Recommend CT chest in 6 months given right lower lobe diaphragmatic nodule
Assessment
-
82-year-old male with history of hypertension, COPD, sleep apnea on CPAP therapy, triple-vessel coronary disease, left main disease, s/p CABG x 3, left atrial appendage exclusion on 10/14/2023. We are asked to help from critical care standpoint
S/p CABG x 3, 10/14/23
Triple-vessel disease, left main disease
Abnormal stress test, progressive symptoms
Anemia requiring transfusion
Conditions present prior to admission
Subpleural interstitial changes per CT imaging
Right lower lobe nodule
Hypertension/hyperlipidemia
Chronic kidney disease stage IV
Creatinine 2.4
BPH
GERD
History of COPD
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
Sleep apnea on CPAP therapy
Peripheral arterial disease, carotid disease
Distant tobacco history
Family history of lung cancer (mother)
Plan/recommendations
At this time, patient appears comfortable
Mild splinting on exam, decreased breath sounds at base
Chest x-ray with mild left basilar atelectasis
Received 1 unit transfusion, hemoglobin stable
Off pressors
Moving forward
Continue with management per CT surgery
Incentive spirometry, pain control
Chest tube output minimal, following hemoglobin
History of sleep apnea, records suggest CPAP therapy
Positional therapy postextubation as able
Follow for CO2 retention with sedation/pain management
Patient has his CPAP machine
Follow blood sugars, insulin drip noted
Preoperative PFTs with mild restriction, mild gas exchange defect
Reviewed CT chest 10/09/2023. Subpleural interstitial changes, bullae
There is a 7 mm right lower lobe nodule along the fissure, diaphragmatic border which is noncalcified
Another nodule which is calcified
Distant smoking history noted. Would recommend follow-up CT chest in 6 months
DVT prophylaxis, GI prophylaxis per CT surgery protocol
Reviewed with critical care nursing
We will follow
Subjective Dataa
Subjective Data
Date of Service:
Date of Service: October 15, 2023
Subjective:
Patient extubated without difficulty. Sitting in chair. Complaining of general incisional discomfort. Mild dry cough, mild nausea with positional change but no emesis, abdominal pain. Appears comfortable
Objective Data
Data Reviewed
Vital Signs / I&O / Oxygen:
Vital Signs
Temp Pulse Resp BP Pulse Ox
98.7 F 67 18 114/48 93
10/15/23 04:00 10/15/23 07:00 10/15/23 04:30 10/15/23 07:00 10/15/23 07:00
Intake and Output
10/14/23 10/15/23 10/16/23
06:59 06:59 06:59
Intake Total 244 / 244 607.2 / 618.4 11.2 / 11.2
Output Total 2360 / 2400 40 / 40
Balance 244 / 244 -1752.8 / -1781.6 -28.8 / -28.8
SaO2 [CPAP] 98
SaO2 [SIMV] 100
SaO2 93
Nasal Cannula flow liters per 2
minute
Physical Exam
General: Comfortable and Other (IJ, chest tube, A-line)
HEENT: Normocephalic and Anicteric
Cardiovascular: S1-S2, Regular Rhythm, Murmur (n), Rub, Peripheral Edema (n) and Other
Respiratory: Wheeze (n), Crackles (n), Rhonchi (n), Other (Mild splinting) and Other (Decreased at base)
GI: Soft, Non Distended and Non Tender
Neurology: Awake, Alert and No Motor Deficits
Skin: Good Color, Jaundice (n) and Rash (n)
Labs/Micro/Reports
Lab Data
10/15/23 03:35
10/15/23 03:35
Laboratory Results
10/14/23 10/14/23 10/14/23
11:24 11:25 14:41
PT 17.4 H
INR 1.44
APTT 38.1 H
pH 7.31 L 7.36
pCO2 50 H 48
pO2 171 H 131 H
HCO3 25.2 27.1
O2 Delivery Level
10/15/23
03:35
PT 16.4 H
INR 1.34
APTT
pH
pCO2
pO2
HCO3
O2 Delivery Level
--- NOTE | 2023-10-15 08:00 | PTCARENOTE ---
Received pt from gunite mixer RN; pt AAOx3 and resting comfortably in chair; NSR on monitor and VSS; Epicardial V wire connected to box and box turned off due to inappropriately pacing; RIJ Cordis and PIV x1 all patent; lungs diminished throughout;
IS to 750; CTx3 to -20 wall suction, no crepitus and no air leak noted; hypoactive bowel sounds; Hanna Catheter draining clear yellow urine; weak lower extremity pulses and palpable radial pulses; no edema noted; surgical sites C/D/I; see nursing
documentation for further details.
[2023-10-15] MEDS: LASIX IV (08:27)
[2023-10-15 08:35] LABS: Glucose - Point of Care 99 mg/dl (70-99)
[2023-10-15] MEDS: MAGNESIUM OXIDE 500 MG PO ×2 (08:36→20:23)
[2023-10-15] MEDS: SENOKOT-S 1 TABLET PO ×2 (08:36→20:23)
[2023-10-15] MEDS: LOPRESSOR 12.5 MG PO ×2 (08:36→20:23)
[2023-10-15] MEDS: LOW STRENGTH ASPIRIN 81 MG PO (08:36)
[2023-10-15] MEDS: BACTROBAN 2% OINTMENT 1 APPLIC NASAL ×2 (08:36→20:21)
[2023-10-15] MEDS: PACERONE 200 MG PO ×3 (08:36→21:13)
[2023-10-15] MEDS: PLAVIX 75 MG PO (08:36)
[2023-10-15] MEDS: NSS IV (09:55)
[2023-10-15 10:37] LABS: Glucose - Point of Care 155 mg/dl (70-99)
--- NOTE | 2023-10-15 10:38 | PTCARENOTE ---
Left Pleural Chest tube removed per CV BIOMETRIC FINGERPRINTING TECHNICIAN order.
--- NOTE | 2023-10-15 12:14 | PTCARENOTE ---
Insulin drip and glycemic protocol discontinued.
[2023-10-15 12:22] LABS: Glucose - Point of Care 119 mg/dl (70-99)
--- NOTE | 2023-10-15 12:40 | CM ---
Chart reviewed. Patient is independent of ADLS, lives with his significant other in a 2 STH, 0 DME. Plan is for the patient to return home with CT Transitional RN. CM to follow
--- NOTE | 2023-10-15 13:11 | PTCARENOTE ---
Assessment unchanged; NSR on monitor and VSS; pt resting comfortably in chair with family at bedside.
[2023-10-15] MEDS: PROTONIX 40 MG PO (13:13)
--- NOTE | 2023-10-15 13:58 | W.PN.NEPH.PH ---
Today's Communication / Plan
-
follow labs
Assessment/Plan
-
Impression:
Status postcardiac catheterization 10/09 with noted 3V disease s/p CABG x3 10/14
Chronic kidney disease stage IV (2.4)
Longstanding uncontrolled hypertension with negative secondary hypertensive work
Anemia on chronic BOBO
Peripheral arterial disease with active claudication
COPD
Plan:
s/p CABG 10/14
cr relatively stable 2.4, non oliguric
keep garcia today, if cr stable or improving attempt d/c garcia
Bp stable, prn lasix
cont post op care per surg
d/w nursing
-
-
Date of Service: October 15, 2023
CC / HPI / ROS
-
Chief Complaint:
ckd
History of Present Illness:
Creatinine slightly up at 2.4, non oliguric with garcia
s/p CABG 10/14
BP stable off pressor
hb better at 9.4
Review of Systems:
no sob on supine on bed
pain controlled
was in chair this am
Labs
-
Labs:
WBC 13.0 10^3/uL (4.8-10.8) H 10/15/23 03:35
RBC 3.19 10^6/uL (4.70-6.10) L 10/15/23 03:35
Hgb 9.4 g/dL (13.0-18.0) L 10/15/23 03:35
Hct 27.4 % (39.0-52.0) L 10/15/23 03:35
Plt Count 107 10^3/uL (130-400) L 10/15/23 03:35
Sodium 138 mmol/L (135-145) 10/15/23 03:35
Potassium 4.6 mmol/L (3.5-5.1) 10/15/23 03:35
Chloride 104 mmol/L (98-107) 10/15/23 03:35
Carbon Dioxide 22 mmol/L (22-30) 10/15/23 03:35
BUN 44 mg/dl (9-20) H 10/15/23 03:35
Creatinine 2.4 mg/dL (0.7-1.3) H 10/15/23 03:35
eGFR 26.28 10/15/23 03:35
Glucose 105 mg/dl (70-99) H 10/15/23 03:35
Calcium 9.1 mg/dl (8.4-10.2) 10/15/23 03:35
Albumin 3.8 g/dl (3.5-5.0) 10/09/23 16:14
Physical Exam
-
Vital Signs:
Vital Signs
Temp Pulse Resp BP Pulse Ox
98.3 F 56 20 114/49 96
10/15/23 09:00 10/15/23 12:00 10/15/23 12:00 10/15/23 12:00 10/15/23 12:00
Cardiovascular:: Regular rate and rhythm
Lung Excursion:: Abnormal (decreased)
Abdomen:: Nontender and Soft
Extremity Edema:: None: Bilateral:
Garcia Catheter: Yes
--- NOTE | 2023-10-15 16:51 | PTCARENOTE ---
Assessment unchanged; NSR on monitor and VSS; pt resting comfortably in chair.
[2023-10-15 17:25] LABS: Glucose - Point of Care 165 mg/dl (70-99)
[2023-10-15] MEDS: NOVOLOG FLEXPEN-MODERATE RESISTANCE 1 UNITS SC (17:26)
--- NOTE | 2023-10-15 21:00 | PTCARENOTE ---
Received pt from gemini MCPH[facility]. Pt sitting OOB in chair. NSR on monitor. Epicardial Vwires to box, box turned off. +rub. +palpable pulses. trace edema noted to B/L LEs. Pulse ox 100% on 2 L NC. Pt has own CPAP for HS. Lung sounds diminished in the
bases. IS up to 1,[address] maintained to wall suction, +1 air leak, no tidaling or crepitus. Abdomen soft/nontender. Hypoactive BS. Hanna draining clear, yellow urine. All surgical sites C/D/I. RIJ cordis maintained with NSS KVO. PIV
flushed and patent. See work list for full assessment and interventions.
[2023-10-15] MEDS: NEURONTIN 300 MG PO (21:13)
[2023-10-15] MEDS: LIPITOR 40 MG PO (21:13)
[2023-10-15 21:55] LABS: Glucose - Point of Care 162 mg/dl (70-99)
[2023-10-16] VITALS (21 sets, daily range): BP systolic 93–144; BP diastolic 41–95; PULSE 67–89; O2SAT 94; BMI 26.1
--- NOTE | 2023-10-16 00:30 | PTCARENOTE ---
Assessment unchanged from previous. VSS. NSR on monitor.
[2023-10-16 01:00] LABS: Hematocrit 25.2 % (39.0-52.0); Hemoglobin 8.7 g/dL (13.0-18.0); Mean Corp Hgb Conc. 34.5 g/dL (33.0-37.0); Mean Corpuscular Volume 86.9 fL (80.0-94.0); Mean Platelet Volume 11.8 fL (7.4-10.4); Platelet Count 105 10^3/uL (130-400); Red Cell Dist. Width 19.2 % (11.5-14.5); White Blood Cell Count 13.3 10^3/uL (4.8-10.8)
[2023-10-16 01:11] LABS: Blood Urea Nitrogen 57 mg/dl (9-20); Calcium 8.5 mg/dl (8.4-10.2); Carbon Dioxide 26 mmol/L (22-30); Chloride 102 mmol/L (98-107); Estimated Creatinine Clearance 20 ml/min; Glucose 148 mg/dl (70-99); Magnesium 2.2 mg/dl (1.6-2.3); Potassium 4.7 mmol/L (3.5-5.1); Sodium 132 mmol/L (135-145); eGFR 20.11
[2023-10-16] MEDS: TYLENOL PO (04:36)
--- NOTE | 2023-10-16 04:44 | W.PN.CT ---
Today's Communication / Plan
-
Plan:
-No major issues overnight. Hemodynamically and neurologically intact
-Off all drips
-Noted to be bradycardic (57 bpm) overnight despite hold on night dose of Amiodarone. Will decrease Amiodarone to 200 mg BID
-Monitor chest tube output for possible d/c, may have to clamp first: 2meds (+ air leak/+1 continuous) 80/160. No visible ptx or SQ emphysema noted on cxr this AM, f/u official report
-Cont. current meds (ASA, Plavix, Amiodarone, Lopressor, Lipitor, Lasix)
-Hyponatremic, 132, was 138 yesterday and preop. Fluid restriction
-Cr 3.0, was 2.4 yesterday, has CKD and leaves around 2.4. Will benefit from gentle diuresis. Nephrology following
-D/C garcia after diuresis. On Proscar for BPH
-Maintain cordis another day
-Maintain temporary pacer wires (will cut before d/c home)
-Encourage use of IS
-Wean off of O2
-OOB into chair
-Ambulate
Assessment / Plan
-
Assessment:
-S/P Standard sternotomy with aortic and right atrial cannulation/CABG x 3 (In situ MELÉNDEZ to LAD, Ao to RSVG to OM 3, Ao to RSVG to RPDA)/R EVH/ELAA, by Dr. Lafleur, 10/14/23, pod#2
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
-Exertional angina
-Abnormal stress test
-LVEF 60% per intraop JACQUE
-Mild TR
-Mild MR
-Dilated mid asc. aorta (3.6 cm)
-Mild sessile atheroma @ descending and distal aortic arch
-PAD with claudication
-RANDY stenosis (>70%), per u/s 10/09/22
-HTN
-HLD
-CKD 4 (cr 2.4)
-Anemia of CKD, on Procrit
-BPH, on finasteride
-Mild COPD
-IRINA (uses CPAP)
-Former tobacco use (quit 20 yrs ago)
-GERD
-DJD spine
-Prediabetes (A1C 5.7)
-Chronic right otitis media/Eustachian tube dysfunction/Retained Myringotomy tube S/P removal of myringotomy tube from right ear, 10/07/19
-S/P Cholecystectomy
-S/p Repair of femur fracture (50 yrs ago)
-Acute blood loss on chronic anemia (transfused 1u PRBC)
-Acute postop thrombocytopenia (stable without active bleed)
-Acute postop atelectasis
-Acute postop hypovolemia with subsequent hypervolemia
-Acute postop hyponatremia, 132
Discussed patient care with: Cardiology, Nursing, Respiratory Therapy, Pharmacy and Care Team
Subjective
Procedure
Standard sternotomy with aortic and right atrial cannulation/CABG x 3 (In situ MELÉNDEZ to LAD, Ao to RSVG to OM 3, Ao to RSVG to RPDA)/R EVH/ELAA, by Dr. Lafleur, 10/14/23
-
Date of Service: October 16, 2023
Pt c/o pleuritic chest pain, otherwise feels well. States pain better after removal of one chest tube yesterday
Objective Data
-
Lab Results
10/16/23 00:52
10/16/23 00:52
PT 16.4 Sec (11.4-14.6) H 10/15/23 03:35
INR 1.34 10/15/23 03:35
APTT 38.1 Sec (23.4-35.0) H 10/14/23 11:24
Vital Signs
Vital Signs
Temp Pulse Resp BP Pulse Ox
98.1 F 60 18 114/56 90
10/16/23 03:00 10/16/23 04:30 10/16/23 03:00 10/16/23 04:00 10/16/23 04:30
[address] Intake/Output/Weight
10/15/23 10/15/23 10/16/23
06:59 18:59 06:59
Intake Total 398.4 / 618.4 106.5 / 146.5 40 / 146.5
Output Total 885 / 2400 390 / 640 250 / 640
Balance -486.6 / -1781.6 -283.5 / -493.5 -210 / -493.5
SaO2: 93 (2L)
Physical Exam
-
General: Awake, Oriented and AOx3
Cardiovascular: Regular rate & rhythm, Rub (likely friction rub from chest tubes) and No Gallop
Respiratory: Decreased Breath Sounds
Sternum: Stable
Incision: Clean, Dry, Intact and Dressing Intact
Extremities: Other (trace edema)
Data Reviewed
-
Lab Results: Results Reviewed
Medications: Active Meds Reviewed
Chest X-Ray: Report Reviewed and Image Reviewed
ECG: Report Reviewed and Image Reviewed
[2023-10-16] MEDS: ROXICODONE 5 MG PO ×3 (06:16→23:55)
[2023-10-16 07:54] LABS: Glucose - Point of Care 135 mg/dl (70-99)
[2023-10-16] MEDS: NOVOLOG FLEXPEN-MODERATE RESISTANCE SC ×2 (07:55→12:48)
--- NOTE | 2023-10-16 08:30 | PTCARENOTE ---
Patient received from hourly shift manager resting comfortably oob in chair, AAO X 3, states pain controlled at this time. NSR via cm, SaO2 @ 95% on RA. RIJ Cordis w/kvo infusing. Epicardial A+V wires to pulse generator, off. Mediastinal chest tubes x 2,
Y-connected to one pleuravac, +1 air leak noted. Hanna catheter to gravity. All procedural sites stable. Dr. Lafleur and team to bedside for am rounds. Patient updated to plan of care for the day, in agreement. See work list for full assessment and
interventions performed.
--- NOTE | 2023-10-16 08:57 | W.PN.CARDCBS ---
Addendum entered and electronically signed by Hermelinda Richard DO 10/16/23 10:43:
I saw and examined the patient.
The Chore Worker's note was reviewed and I agree with the note.
Comment: Seen and examined. Patient sitting out of bed to chair and feels well. Denies chest pain suggestive of angina. No shortness of breath or dizziness. Garcia catheter present.
GEN: No distress, awake, alert, oriented x3. sitting in chair
HEENT: mmm
LUNGS: Decreased BS B/L bases, no wheezes
CV: Reg, S1/S2, no murmur
ABD: soft, BS+, NT/ND
EXT: Trace edema of B/L LE. Chest tubes present. Temporary device wires present.
: garcia
Plan:
-s/p CABG x3 10/14/23
-Cr up to 3.0 today from 2.4 yesterday. nephrology following
-remains in SR upon review overnight. was noted to have some bradycardia overnight, amiodarone dose decreased to 200mg BID. continue low dose lopressor
-follow EKG, with possible mild ST elevation noted in lateral leads 10/15 compared to preop EKG 10/09
-continue asa, plavix, lipitor
-continue OOB/IS
-was on hydralazine, norvasc, and benazepril as OP, all presently on hold in post op setting
-Discussed with nursing
-Carotid US noted >70% stenosis of the R ICA.� Will need to be closely followed as an outpatient.
Original Note:
Today's Communication / Plan
-
continue post op care
follow EKG
follow HR, amio dose decreased
follow Cr
OOB/IS
Impression / Plan
-
PCP: Dr. Renita Ward
Interior Decorator: Dr. Magana ([facility] Card[facility])
Impression:
CAD
3-vessel CAD with significant LM disease by cath 10/09/2023
s/p CABG x 3 (MELÉNDEZ-LAD, RSVG-OM, RSVG-RPDA) 10/14/2023
PAD
HTN
HLD
CKD 4
COPD
Chronic ALEC
GERD
IRINA on CPAP
Carotid US noted >70% stenosis of the R ICA
Nuclear stress test 10/02/2023: moderate to large size and moderate in severity perfusion defect involving the basal to apical inferior wall noted on rest imaging. This improves substantially on stress images. Positive stress ECG criteria at 4 minutes
of exercise, achieving 2.3 METs of activity .
LHC 10/09/2023: LM diffusely diseased with long 70% stenosis. LAD: Heavily calcified with mild to moderate luminal irregularities and at worst a smooth long 40 to 50% mid stenosis. LCx: Heavy calcification in the mid circumflex associated with a
50% stenosis extending into the large third obtuse marginal branch. RCA: Diffuse luminal irregularities throughout the RCA with a long proximal 40% stenosis and a more severe focal mid 60% stenosis before the acute margin. Smooth 50% stenosis in
the ostial/proximal PDA.
Echo 08/02/2023: EF 55-60%, moderate cLVH, no significant valvular disease
Plan:
-s/p CABG x3 10/14/23
-continue post op care
-Cr up to 3.0 today from 2.4 yesterday. nephrology following
-remains in SR upon review overnight. was noted to have some bradycardia overnight, amiodarone dose decreased to 200mg BID. continue low dose lopressor
-follow EKG, with possible mild ST elevation noted in lateral leads 10/15 compared to preop EKG 10/09
-continue asa, plavix, lipitor
-continue OOB/IS
-was on hydralazine, norvasc, and benazepril as OP, all presently on hold in post op setting
-Discussed with nursing
-Carotid US noted >70% stenosis of the R ICA. Will need to be closely followed as an outpatient.
Progress Note - Interior Decorator
Subjective
Date of Service: October 16, 2023
Reports some postoperative pain this morning. Out of bed to chair
Objective
Labs:
10/16/23 00:52
10/16/23 00:52
Labs
Hgb 8.7 g/dL (13.0-18.0) L 10/16/23 00:52
Hct 25.2 % (39.0-52.0) L 10/16/23 00:52
Plt Count 105 10^3/uL (130-400) L 10/16/23 00:52
PT 16.4 Sec (11.4-14.6) H 10/15/23 03:35
INR 1.34 10/15/23 03:35
APTT 38.1 Sec (23.4-35.0) H 10/14/23 11:24
Sodium 132 mmol/L (135-145) L 10/16/23 00:52
Potassium 4.7 mmol/L (3.5-5.1) 10/16/23 00:52
BUN 57 mg/dl (9-20) H 10/16/23 00:52
Creatinine 3.0 mg/dL (0.7-1.3) H 10/16/23 00:52
Glucose 148 mg/dl (70-99) H 10/16/23 00:52
Vital Signs and I&O:
Vital Signs
Temp Pulse Resp BP Pulse Ox
98.2 F 72 17 109/95 95
10/16/23 08:30 10/16/23 08:30 10/16/23 08:30 10/16/23 08:04 10/16/23 08:46
Vital Signs
Temp Pulse Resp BP Pulse Ox
98.2 F 72 17 109/95 95
10/16/23 08:30 10/16/23 08:30 10/16/23 08:30 10/16/23 08:04 10/16/23 08:46
Intake & Output
10/14/23 10/15/23 10/16/23 10/17/23
07:59 07:59 07:59 07:59
Intake Total 244 / 244 618.4 / 629.6 185.3 / 185.3 260 / 260
Output Total 2400 / 2445 780 / 780
Balance 244 / 244 -1781.6 / -1815.4 -594.7 / -594.7 260 / 260
Physical Exam
Physical Exam
GEN: No distress, awake, alert, oriented x3. sitting in chair
HEENT: supple, anicteric, mmm, eomi
LUNGS: Decreased BS B/L bases, no wheezes
CV: Reg, S1/S2, no murmur
ABD: soft, BS+, NT/ND
EXT: No cyanosis, clubbing. Trace edema of B/L LE
NEURO: Gross non-focal
SKIN: Warm, pink, dry. No rash. Sternotomy incision healing well. Cts in place
: jose
[2023-10-16] MEDS: BACTROBAN 2% OINTMENT 1 APPLIC NASAL ×2 (09:00→20:03)
[2023-10-16] MEDS: SENOKOT-S 1 TABLET PO ×2 (09:00→20:03)
[2023-10-16] MEDS: LOPRESSOR 12.5 MG PO ×2 (09:00→20:03)
[2023-10-16] MEDS: MAGNESIUM OXIDE 500 MG PO ×2 (09:00→20:03)
[2023-10-16] MEDS: PROTONIX 40 MG PO (09:01)
[2023-10-16] MEDS: LOW STRENGTH ASPIRIN 81 MG PO (09:01)
[2023-10-16] MEDS: PLAVIX 75 MG PO (09:01)
[2023-10-16] MEDS: TYLENOL 650 MG PO ×5 (09:01→23:55)
[2023-10-16] MEDS: PACERONE 200 MG PO ×2 (09:01→20:03)
[2023-10-16] MEDS: NSS 500 IV (09:57)
--- NOTE | 2023-10-16 09:58 | PN.CDI ---
CDI
- -
CDI:
Physician Documentation Request
Admit Date: 10/09/23 11:40
Dear Doctor Ciarra,
Patient underwent CABG x 3. History of CKD 4.
Recent creatinine resulted as follows:
10/14/23 10/15/23 10/16/23
03:35 00:52
Creatinine 2.1 H 2.4 H 3.0 H
Please clarify which of the following accurately represents the patient's renal status:
____ - Acute Kidney injury on CKD 4
____ - CKD 4 only
____ - Other
Criteria for JUILANNA*
1 Increase in serum creatinine by > or = to 0.3 mg/dL (> or = to 26.5 micromol/L) within 48 hours, OR
2 Increase in serum creatinine to > or = to 1.5 times baseline, which is known or presumed to have occurred within 7 days, OR
3 Urine volume < 0.5 nL/kg/hour for six hours
Use of terms such as suspected, likely, concern for, or probable (associated with a specific diagnosis that is being evaluated, monitored, or treated as if it exists) are acceptable and can be coded in the inpatient setting, when documented at the
time of discharge.
Thank you,
Lenora Weldon RN, BSN
CDI Specialist
[place] text
Please use your independent medical judgment in providing your response.
*Source: Kidney Disease: Improving Global Outcomes (KDIGO) 2012
--- NOTE | 2023-10-16 10:10 | PN.CDI ---
CDI
- -
CDI:
Physician Documentation Request
Admit Date: 10/09/23 11:40
Dear Doctor Ciarra,
Patient underwent cardiac catheterization after abnormal stress test and some exertional tightness resulting in CABG x 3.
Cardiothoracic progress notes states 'exertional angina'
Could you please provide further clarification regarding angina:
stable angina
unstable angina
Other
Use of terms such as suspected, likely, concern for, or probable (associated with a specific diagnosis that is being evaluated, monitored, or treated as if it exists) are acceptable and can be coded in the inpatient setting, when documented at the
time of discharge.
Thank you,
Lenora Weldon RN, BSN
CDI Specialist
[place] text
Please use your independent medical judgment in providing your response.
--- NOTE | 2023-10-16 10:45 | W.PN.UPDATE ---
Update Note
Progress Note Update
CDI QUERY RESPONSE
-stable angina
-JULIANNA on CKD4
--- NOTE | 2023-10-16 10:47 | W.PN.UPDATE ---
Update Note
Progress Note Update
Family [facility]. Listed home medication Epidiolex incorrect per mauro and his . patient states he does NOT have history of seizures and has never been on this medication. Med-Rec list updated to reflect this change.
[2023-10-16] MEDS: NON-FORMULARY ITEM INH (11:20)
--- NOTE | 2023-10-16 12:15 | PTCARENOTE ---
VS obtained, assessment stable. Patient resting comfortably, perusing menu. at bedside.
[2023-10-16 12:46] LABS: Glucose - Point of Care 128 mg/dl (70-99)
--- NOTE | 2023-10-16 14:49 | W.PN.NEPH.PH ---
Today's Communication / Plan
-
- lasix today
Assessment/Plan
-
Impression:
Status postcardiac catheterization 10/09 with noted 3V disease s/p CABG x3 10/14
Chronic kidney disease stage IV (2.4)
Longstanding uncontrolled hypertension with negative secondary hypertensive work
Anemia on chronic BOBO
Peripheral arterial disease with active claudication
COPD
Plan:
s/p CABG 10/14
Cr rising to 3, non oliguric
keep garcia today with Cr rise
Bp stable, continue diuresis
cont post op care per surg
d/w nursing
-
-
Date of Service: October 16, 2023
CC / HPI / ROS
-
Chief Complaint:
ckd
History of Present Illness:
Creatinine slightly up at 3, non oliguric with garcia
s/p CABG 10/14
BP stable off pressor
hb better at 9.4
Review of Systems:
no sob on supine on bed
pain controlled
was in chair this am
Labs
-
Labs:
WBC 13.3 10^3/uL (4.8-10.8) H 10/16/23 00:52
RBC 2.90 10^6/uL (4.70-6.10) L 10/16/23 00:52
Hgb 8.7 g/dL (13.0-18.0) L 10/16/23 00:52
Hct 25.2 % (39.0-52.0) L 10/16/23 00:52
Plt Count 105 10^3/uL (130-400) L 10/16/23 00:52
Sodium 132 mmol/L (135-145) L 10/16/23 00:52
Potassium 4.7 mmol/L (3.5-5.1) 10/16/23 00:52
Chloride 102 mmol/L (98-107) 10/16/23 00:52
Carbon Dioxide 26 mmol/L (22-30) 10/16/23 00:52
BUN 57 mg/dl (9-20) H 10/16/23 00:52
Creatinine 3.0 mg/dL (0.7-1.3) H 10/16/23 00:52
eGFR 20.11 10/16/23 00:52
Glucose 148 mg/dl (70-99) H 10/16/23 00:52
Calcium 8.5 mg/dl (8.4-10.2) 10/16/23 00:52
Albumin 3.8 g/dl (3.5-5.0) 10/09/23 16:14
Physical Exam
-
Vital Signs:
Vital Signs
Temp Pulse Resp BP Pulse Ox
98 F 63 16 121/50 94
10/16/23 12:05 10/16/23 14:00 10/16/23 12:05 10/16/23 12:00 10/16/23 12:05
Cardiovascular:: Regular rate and rhythm
Respiratory:: Bilateral: Coarse
Lung Excursion:: Normal
Abdomen:: Nontender and Soft
Bowel Sounds:: Normal
Extremity Edema:: +1: Bilateral:
Garcia Catheter: Yes
--- NOTE | 2023-10-16 16:30 | PTCARENOTE ---
VS obtained, assessment unchanged. Family in room for visit. Patient states pain better controlled since removal of chest tubes.
[2023-10-16] MEDS: LASIX 40 MG IV (16:45)
--- NOTE | 2023-10-16 20:30 | PTCARENOTE ---
[facility] completed. Pt AAOx3. MENDEZ. Following commands appropriately. SR on monitor. HR 60s. +Rub. Temporary epicardial v-wire intact and insulated. BP 124/49. Afebrile. Bilateral radial and DP pulses
palpable. Trace LE edema. Pt on RA. POX 95%. Lung sounds diminished bilaterally. CT dressing changed - see skin wound management. IS encouraged. Abdomen soft/nontender. Bowel sounds x4. Hanna catheter in place draining yellow urine. All surgical
sites stable. Right IJ cordis CDI w/ KVO infusing. Right forearm PIV CDI. Pt OOB in chair at this time. Call nicholson within reach. See work-list for full nursing assessment and interventions.
[2023-10-16] MEDS: LIPITOR 40 MG PO (22:07)
[2023-10-16] MEDS: NEURONTIN 300 MG PO (22:07)
[2023-10-17] VITALS (19 sets, daily range): BP systolic 110–155; BP diastolic 47–65; PULSE 66; O2SAT 96; BMI 26.8
--- NOTE | 2023-10-17 00:31 | PTCARENOTE ---
Previous assessment unchanged. Pt SR to sinus joseph on the monitor. HR 50s-60s. BP stable. Afebrile. POX 96%. Assisted pt set up home CPAP machine. All procedural sites stable. Hanna catheter C/D/I. Call nicholson within reach.
[2023-10-17] MEDS: TYLENOL 650 MG PO (03:56)
--- NOTE | 2023-10-17 04:05 | PTCARENOTE ---
Previous assessment unchanged. Pt remains SR to sinus joseph on the monitor. HR 50s-60s. BP stable. POX 95% on RA. Hanna catheter C/D/I. All procedural sites stable. Pt resting in bed at this time. Labs drawn and sent. Call nicholson within reach.
[2023-10-17 04:25] LABS: Hematocrit 23.3 % (39.0-52.0); Hemoglobin 7.9 g/dL (13.0-18.0); Mean Corp Hgb Conc. 33.9 g/dL (33.0-37.0); Mean Corpuscular Hgb 29.3 pg (27.0-31.0); Mean Corpuscular Volume 86.3 fL (80.0-94.0); Mean Platelet Volume 11.2 fL (7.4-10.4); Platelet Count 96 10^3/uL (130-400); Red Cell Dist. Width 18.6 % (11.5-14.5); White Blood Cell Count 9.5 10^3/uL (4.8-10.8)
[2023-10-17 04:45] LABS: Blood Urea Nitrogen 73 mg/dl (9-20); Calcium 8.1 mg/dl (8.4-10.2); Carbon Dioxide 24 mmol/L (22-30); Chloride 96 mmol/L (98-107); Estimated Creatinine Clearance 17 ml/min; Glucose 113 mg/dl (70-99); Potassium 4.5 mmol/L (3.5-5.1); Sodium 129 mmol/L (135-145); eGFR 16.71
--- NOTE | 2023-10-17 05:02 | W.PN.CT ---
Today's Communication / Plan
-
-pod #3
-no issues overnight, no complaints, feels better after CTs removed
-diuresed with 40 iv Lasix 10/16 (UO 280/640 in 12/24 hrs, approx 20-35 cc per hr)
-follow Cr - 3.5 today (3.0 on 10/16, 2.4 on 10/15, 2.2-2.3 preop)
-held Magnesium
-Amio decreased to bid d/t joseph mid-high 50s overnight (has IRINA, wears CPAP)
-Cont. current meds (ASA, Plavix, Amiodarone 200 bid, Lopressor 12.5 bid, Lipitor, Lasix)
-maintain Hanna for critical I/O, julianna
-Maintain temporary pacer wires (will cut before d/c home)
-Encourage use of IS, OOB, ambulate
-appreciate everyone's input
Assessment / Plan
-
Assessment:
-S/P Standard sternotomy with aortic and right atrial cannulation/CABG x 3 (In situ MELÉNDEZ to LAD, Ao to RSVG to OM 3, Ao to RSVG to RPDA)/R EVH/ELAA, by Dr. Lafleur, 10/14/23, pod#3
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
-Exertional angina
-Abnormal stress test
-LVEF 60% per intraop JACQUE
-Mild TR
-Mild MR
-Dilated mid asc. aorta (3.6 cm)
-Mild sessile atheroma @ descending and distal aortic arch
-PAD with claudication
-RANDY stenosis (>70%), per u/s 10/09/22
-HTN
-HLD
-CKD 4 (cr 2.4)
-Anemia of CKD, on Procrit
-BPH, on finasteride
-Mild COPD
-IRINA (uses CPAP)
-Former tobacco use (quit 20 yrs ago)
-GERD
-DJD spine
-Prediabetes (A1C 5.7)
-Chronic right otitis media/Eustachian tube dysfunction/Retained Myringotomy tube S/P removal of myringotomy tube from right ear, 10/07/19
-S/P Cholecystectomy
-S/p Repair of femur fracture (50 yrs ago)
-Acute blood loss on chronic anemia (transfused 1u PRBC)
-Acute postop thrombocytopenia (stable without active bleed)
-Acute postop atelectasis
-Acute postop hypovolemia with subsequent hypervolemia
-Acute postop hyponatremia, 129
-JULIANNA in setting of CKD
Discussed patient care with: Nursing and Care Team
Subjective
Procedure
Standard sternotomy with aortic and right atrial cannulation/CABG x 3 (In situ MELNÉDEZ to LAD, Ao to RSVG to OM 3, Ao to RSVG to RPDA)/R EVH/ELAA, by Dr. Lafleur, 10/14/23
-
Date of Service: October 17, 2023
Objective Data
-
PT 16.4 Sec (11.4-14.6) H 10/15/23 03:35
INR 1.34 10/15/23 03:35
APTT 38.1 Sec (23.4-35.0) H 10/14/23 11:24
Vital Signs
Vital Signs
Temp Pulse Resp BP Pulse Ox
98.6 F 64 15 123/66 96
10/16/23 23:58 10/16/23 23:58 10/16/23 23:58 10/16/23 23:58 10/16/23 23:58
CT Intake/Output/Weight
10/16/23 10/16/23 10/17/23
06:59 18:59 06:59
Intake Total 80 / 186.5 770 / 820 50 / 820
Output Total 340 / 730 390 / 570 180 / 570
Balance -260 / -543.5 380 / 250 -130 / 250
SaO2: 96
Physical Exam
-
General: Awake, Oriented and AOx3
Cardiovascular: Regular rate & rhythm, Rub present
Respiratory: Decreased Breath Sounds b/l
Sternum: Stable
Incision: Clean, Dry, Intact and Dressing Intact
Abdomen: soft, nondistended, nontender, + bowel sounds
Extremities: 1+edema b/l, difficult to feel DP or PT b/l
Data Reviewed
-
Lab Results: Results Reviewed
Medications: Active Meds Reviewed
Chest X-Ray: Report Reviewed and Image Reviewed
ECG: Report Reviewed and Image Reviewed
[2023-10-17] MEDS: NON-FORMULARY ITEM 1 UNIT INH (07:58)
--- NOTE | 2023-10-17 08:00 | PTCARENOTE ---
Resumed care of patient from previous RN. Walking rounds completed. AAOx3. SR on monitor. HR 60s. epicardial v-wire intact and insulated. VSS. pulses palpable. Trace LE edema. 96% RA. lungs clear. coughing/deep breathing and IS use encouraged. +
Bowel sounds. tolerating diet. Hanna catheter in place draining yellow urine. All surgical sites stable. Right IJ cordis CDI w/ KVO infusing. RA PIV. will continue to monitor.
[2023-10-17] MEDS: BACTROBAN 2% OINTMENT 1 APPLIC NASAL ×2 (09:04→20:13)
[2023-10-17] MEDS: LOW STRENGTH ASPIRIN 81 MG PO (09:05)
[2023-10-17] MEDS: SENOKOT-S 1 TABLET PO ×2 (09:05→20:14)
[2023-10-17] MEDS: PACERONE 200 MG PO ×2 (09:06→20:14)
[2023-10-17] MEDS: PLAVIX 75 MG PO (09:06)
[2023-10-17] MEDS: PROTONIX 40 MG PO (09:06)
[2023-10-17] MEDS: LOPRESSOR 12.5 MG PO (09:08)
[2023-10-17] MEDS: LASIX 40 MG IV (09:09)
--- NOTE | 2023-10-17 10:05 | W.PN.CARDCBS ---
Addendum entered and electronically signed by Wilmar Harper DO 10/17/23 11:56:
I saw and examined the patient.
The Research Investigator's note was reviewed and I agree with the note.
Comment:
Plan:
Cont post op care
Remains SR and bp stable.
Outpt follow up of carotid disease.
Follow H/H
Nephrology evaluating cr.
Discussed with family at bedside.
Original Note:
Today's Communication / Plan
-
follow Cr
follow hgb
repeat EKG
continue post op care
Impression / Plan
-
PCP: Dr. Renita Ward
Real Estate Associate Attorney: Dr. Magana ([facility] Card[facility])
Impression:
CAD
3-vessel CAD with significant LM disease by cath 10/09/2023
s/p CABG x 3 (MELÉNDEZ-LAD, RSVG-OM, RSVG-RPDA) 10/14/2023
PAD
HTN
HLD
CKD 4
COPD
Chronic ALEC
GERD
IRINA on CPAP
Carotid US noted >70% stenosis of the R ICA
Nuclear stress test 10/02/2023: moderate to large size and moderate in severity perfusion defect involving the basal to apical inferior wall noted on rest imaging. This improves substantially on stress images. Positive stress ECG criteria at 4 minutes
of exercise, achieving 2.3 METs of activity .
LHC 10/09/2023: LM diffusely diseased with long 70% stenosis. LAD: Heavily calcified with mild to moderate luminal irregularities and at worst a smooth long 40 to 50% mid stenosis. LCx: Heavy calcification in the mid circumflex associated with a
50% stenosis extending into the large third obtuse marginal branch. RCA: Diffuse luminal irregularities throughout the RCA with a long proximal 40% stenosis and a more severe focal mid 60% stenosis before the acute margin. Smooth 50% stenosis in
the ostial/proximal PDA.
Echo 08/02/2023: EF 55-60%, moderate cLVH, no significant valvular disease
Plan:
-reports some mild dizziness this AM
-s/p CABG x3 10/14/23
-continue post op care
-Creatinine continues to trend up, 3.5 today. Nephrology following
-Remains in sinus rhythm on review of telemetry. Continue Amio and low-dose Lopressor as able.
-Repeat EKG, last from 10/[address] elevation in lateral leads, new compared to prior
-hgb down to 7.9 on 10/17. continue asa, plavix. follow hgb.
-continue OOB/IS
-was on hydralazine, norvasc, and benazepril as OP, all presently on hold in post op setting
-Discussed with nursing
-Carotid US noted >70% stenosis of the R ICA. Will need to be closely followed as an outpatient.
Progress Note - Real Estate Associate Attorney
Subjective
Date of Service: October 17, 2023
Reports some mild dizziness this morning. States breathing much improved after all chest tubes removed
Objective
Labs:
10/17/23 04:01
Labs
Hgb 7.9 g/dL (13.0-18.0) L 10/17/23 04:01
Hct 23.3 % (39.0-52.0) L 10/17/23 04:01
Plt Count 96 10^3/uL (130-400) L 10/17/23 04:01
PT 16.4 Sec (11.4-14.6) H 10/15/23 03:35
INR 1.34 10/15/23 03:35
APTT 38.1 Sec (23.4-35.0) H 10/14/23 11:24
Sodium 129 mmol/L (135-145) L 10/17/23 04:01
Potassium 4.5 mmol/L (3.5-5.1) 10/17/23 04:01
BUN 73 mg/dl (9-20) H 10/17/23 04:01
Creatinine 3.5 mg/dL (0.7-1.3) H 10/17/23 04:01
Glucose 113 mg/dl (70-99) H 10/17/23 04:01
Vital Signs and I&O:
Vital Signs
Temp Pulse Resp BP Pulse Ox
98 F 61 18 134/47 95
10/17/23 08:00 10/17/23 09:30 10/17/23 08:00 10/17/23 09:08 10/17/23 08:00
Vital Signs
Temp Pulse Resp BP Pulse Ox
98 F 61 18 134/47 95
10/17/23 08:00 10/17/23 09:30 10/17/23 08:00 10/17/23 09:08 10/17/23 08:00
Intake & Output
10/15/23 10/16/23 10/17/23 10/18/23
07:59 07:59 07:59 07:59
Intake Total 618.4 / 629.6 185.3 / 185.3 850 / 860 10 / 10
Output Total 2400 / 2445 780 / 780 580 / 780 200 / 200
Balance -1781.6 / -1815.4 -594.7 / -594.7 270 / 80 -190 / -190
Physical Exam
Physical Exam
GEN: No distress, awake, alert, oriented x3. sitting in chair
HEENT: supple, anicteric, mmm, eomi
LUNGS: Decreased BS B/L bases, no wheezes
CV: Reg, S1/S2, no murmur
ABD: soft, BS+, NT/ND
EXT: No cyanosis, clubbing. Trace edema of B/L LE
NEURO: Gross non-focal
SKIN: Warm, pink, dry. No rash. Sternotomy incision healing well.
: jose
[2023-10-17] MEDS: NSS IV (10:28)
--- NOTE | 2023-10-17 10:53 | CM ---
Chart reviewed. Patient is independent of ADLS, lives with his significant other in a [address], with his significant other, 0 DME. Plan is for the patient to return home with CT Transitional RN. CM to follow
[2023-10-17 13:49] LABS: Blood Urea Nitrogen 73 mg/dl (9-20); Chloride 96 mmol/L (98-107); Estimated Creatinine Clearance 16 ml/min; Potassium 4.8 mmol/L (3.5-5.1); Sodium 126 mmol/L (135-145); eGFR 15.63
[2023-10-17 13:51] LABS: Calcium 8.2 mg/dl (8.4-10.2); Carbon Dioxide 24 mmol/L (22-30); Glucose 119 mg/dl (70-99)
--- NOTE | 2023-10-17 14:11 | W.PN.NEPH.PH ---
Today's Communication / Plan
-
- 80IV lasix + metolazone 5mg
- monitor UOP
Assessment/Plan
-
Impression:
Status postcardiac catheterization 10/09 with noted 3V disease s/p CABG x3 10/14
Chronic kidney disease stage IV (2.4)
Longstanding uncontrolled hypertension with negative secondary hypertensive work
Anemia on chronic BOBO
Peripheral arterial disease with active claudication
COPD
Plan:
s/p CABG 10/14
Na dropping likely 09/27 to volume overload. weight up 3kg
Cr rising to 3.7, oliguria developing
keep garcia today with Cr rise
Bp stable, continue diuresis. needs higher doses with elevated Cr. 80IV lasix + 5 metolazone.
cont post op care per surg
patient is tenuous and if his kidney function continues to worsen, he might need HD in the next 24-48 hours
d/w primary team
-
-
Date of Service: October 17, 2023
CC / HPI / ROS
-
Chief Complaint:
ckd
History of Present Illness:
Creatinine slightly up at 3.7, non oliguric with garcia
s/p CABG 10/14
BP stable off pressor
hb low at 7.9
Review of Systems:
no sob on supine on bed
pain controlled
was in chair this am
Labs
-
Labs:
WBC 9.5 10^3/uL (4.8-10.8) 10/17/23 04:01
RBC 2.70 10^6/uL (4.70-6.10) L 10/17/23 04:01
Hgb 7.9 g/dL (13.0-18.0) L 10/17/23 04:01
Hct 23.3 % (39.0-52.0) L 10/17/23 04:01
Plt Count 96 10^3/uL (130-400) L 10/17/23 04:01
Sodium 126 mmol/L (135-145) L 10/17/23 13:01
Potassium 4.8 mmol/L (3.5-5.1) 10/17/23 13:01
Chloride 96 mmol/L (98-107) L 10/17/23 13:01
Carbon Dioxide 24 mmol/L (22-30) 10/17/23 13:01
BUN 73 mg/dl (9-20) H 10/17/23 13:01
Creatinine 3.7 mg/dL (0.7-1.3) H 10/17/23 13:01
eGFR 15.63 10/17/23 13:01
Glucose 119 mg/dl (70-99) H 10/17/23 13:01
Calcium 8.2 mg/dl (8.4-10.2) L 10/17/23 13:01
Albumin 3.8 g/dl (3.5-5.0) 10/09/23 16:14
Physical Exam
-
Vital Signs:
Vital Signs
Temp Pulse Resp BP Pulse Ox
98 F 61 18 134/47 95
10/17/23 08:00 10/17/23 09:30 10/17/23 08:00 10/17/23 09:08 10/17/23 08:00
Cardiovascular:: Regular rate and rhythm
Respiratory:: Bilateral: Coarse
Lung Excursion:: Normal
Abdomen:: Nontender and Soft
Bowel Sounds:: Normal
Extremity Edema:: +2: Bilateral:
Garcia Catheter: Yes
--- NOTE | 2023-10-17 15:00 | PTCARENOTE ---
lasix second dose given as well as malaxone per PA orders.
[2023-10-17] MEDS: LASIX 80 MG IV (15:11)
[2023-10-17] MEDS: ZAROXOLYN 5 MG PO (15:11)
[2023-10-17] MEDS: ROXICODONE 5 MG PO ×2 (16:59→22:35)
[2023-10-17 18:27] LABS: Hematocrit 24.5 % (39.0-52.0); Hemoglobin 8.5 g/dL (13.0-18.0); Mean Corp Hgb Conc. 34.7 g/dL (33.0-37.0); Mean Corpuscular Hgb 29.4 pg (27.0-31.0); Mean Corpuscular Volume 84.8 fL (80.0-94.0); Mean Platelet Volume 11.8 fL (7.4-10.4); Platelet Count 121 10^3/uL (130-400); Red Blood Cell Count 2.89 10^6/uL (4.70-6.10); Red Cell Dist. Width 18.3 % (11.5-14.5); White Blood Cell Count 10.4 10^3/uL (4.8-10.8)
[2023-10-17 18:43] LABS: Blood Urea Nitrogen 79 mg/dl (9-20); Calcium 8.5 mg/dl (8.4-10.2); Carbon Dioxide 26 mmol/L (22-30); Chloride 93 mmol/L (98-107); Estimated Creatinine Clearance 17 ml/min; Glucose 127 mg/dl (70-99); Potassium 4.7 mmol/L (3.5-5.1); Sodium 128 mmol/L (135-145); eGFR 16.71
--- NOTE | 2023-10-17 20:00 | PTCARENOTE ---
Resumed care of patient from dayshift RN. Walking rounds completed. Patient AAOx3. Currently denies pain. NSR on monitor, HR 70s. Epicardial wires intact and insulated. +palpable pulses. +1 edema to BLEs. Pulse ox 91% on RA. Lung sounds clear. No
cough or sputum. IS up to 2,000. Abdomen soft/nontender. +BS. Hanna catheter maintained and draining clear, yellow urine. All surgical sites C/D/I. CT dressing changed. RIJ cordis maintained with NSS KVO. PIV flushed and patent. See work list for
full assessment and interventions.
[2023-10-17] MEDS: LOPRESSOR 25 MG PO (20:14)
[2023-10-17] MEDS: NEURONTIN 300 MG PO (22:35)
[2023-10-17] MEDS: LIPITOR 40 MG PO (22:35)
[2023-10-18] VITALS (18 sets, daily range): BP systolic 103–174; BP diastolic 51–72; PULSE 64; O2SAT 94; BMI 26.4
--- NOTE | 2023-10-18 00:30 | PTCARENOTE ---
Assessment unchanged from previous. VSS. NSR on monitor. Pulse ox 93% with CPAP. Call nicholson within reach.
[2023-10-18 04:11] LABS: Hematocrit 23.7 % (39.0-52.0); Mean Corp Hgb Conc. 33.8 g/dL (33.0-37.0); Mean Corpuscular Hgb 29.2 pg (27.0-31.0); Mean Corpuscular Volume 86.5 fL (80.0-94.0); Mean Platelet Volume 12.3 fL (7.4-10.4); Platelet Count 106 10^3/uL (130-400); Red Blood Cell Count 2.74 10^6/uL (4.70-6.10); Red Cell Dist. Width 18.1 % (11.5-14.5); White Blood Cell Count 7.8 10^3/uL (4.8-10.8)
--- NOTE | 2023-10-18 04:15 | PTCARENOTE ---
Assessment unchanged from previous. VSS. SB on monitor. AM labs obtained and sent.
--- NOTE | 2023-10-18 04:24 | W.PN.CT ---
Today's Communication / Plan
-
-pod #4
-no issues overnight
-diuresed very well with 5 mg Metolazone and 80 mg iv Lasix on 10/17 (UO 1010/2555 in 12/24 hrs)- continue
-follow Cr and lytes (pending)
-Cont. current meds (ASA, Plavix, Amiodarone 200 bid, Lopressor 12.5 bid, Lipitor, Lasix)
-maintain Hanna for critical I/O, julianna
-2v-CXR today
-Maintain temporary pacer wires (will cut before d/c home)
-Encourage use of IS, OOB, ambulate
-appreciate everyone's input
Assessment / Plan
-
Assessment:
-S/P Standard sternotomy with aortic and right atrial cannulation/CABG x 3 (In situ MELÉNDEZ to LAD, Ao to RSVG to OM 3, Ao to RSVG to RPDA)/R EVH/ELAA, by Dr. Lafleur, 10/14/23, pod#4
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
-Exertional stable angina
-Abnormal stress test
-LVEF 60% per intraop JACQUE
-Mild TR
-Mild MR
-Dilated mid asc. aorta (3.6 cm)
-Mild sessile atheroma @ descending and distal aortic arch
-PAD with claudication
-RANDY stenosis (>70%), per u/s 10/09/22
-HTN
-HLD
-CKD 4 (cr 2.4)
-Anemia of CKD, on Procrit
-BPH, on finasteride
-Mild COPD
-IRINA (uses CPAP)
-Former tobacco use (quit 20 yrs ago)
-GERD
-DJD spine
-Prediabetes (A1C 5.7)
-Chronic right otitis media/Eustachian tube dysfunction/Retained Myringotomy tube S/P removal of myringotomy tube from right ear, 10/07/19
-S/P Cholecystectomy
-S/p Repair of femur fracture (50 yrs ago)
-Acute blood loss on chronic anemia (transfused 1u PRBC)
-Acute postop thrombocytopenia (stable without active bleed)
-Acute postop atelectasis
-Acute postop hypovolemia with subsequent hypervolemia
-Acute postop hyponatremia, 129
-JULIANNA in setting of CKD 4
Discussed patient care with: Nursing and Care Team
Subjective
Procedure
Standard sternotomy with aortic and right atrial cannulation/CABG x 3 (In situ MELÉNDEZ to LAD, Ao to RSVG to OM 3, Ao to RSVG to RPDA)/R EVH/ELAA, by Dr. Lafleur, 10/14/23
-
Date of Service: October 18, 2023
Objective Data
-
Lab Results
10/18/23 06:00
10/18/23 06:00
PT 16.4 Sec (11.4-14.6) H 10/15/23 03:35
INR 1.34 10/15/23 03:35
APTT 38.1 Sec (23.4-35.0) H 10/14/23 11:24
Vital Signs
Vital Signs
Temp Pulse Resp BP Pulse Ox
98.9 F 55 18 108/54 92
10/17/23 23:00 10/18/23 03:24 10/18/23 03:24 10/18/23 03:24 10/18/23 03:24
CT Intake/Output/Weight
10/17/23 10/17/23 10/18/23
06:59 18:59 06:59
Intake Total 90 / 860 320 / 360 40 / 360
Output Total 280 / 670 1545 / 2555 1010 / 2555
Balance -190 / 190 -1225 / -2195 -970 / -2195
SaO2: 92
Physical Exam
-
General: Awake and AOx3
Cardiovascular: Regular rate & rhythm, No Murmurs and No Rub
Respiratory: Rales (at bases b/l)
Sternum: Stable
Incision: Clean, Dry and Intact
Extremities: Other (trace edema b/l)
Abdome: soft, nondistended, + bowel sounds, + flatus
Data Reviewed
-
Lab Results: Results Reviewed
Medications: Active Meds Reviewed
Chest X-Ray: Report Reviewed and Image Reviewed
ECG: Report Reviewed and Image Reviewed
[2023-10-18 04:57] LABS: Blood Urea Nitrogen 76 mg/dl (9-20); Carbon Dioxide 27 mmol/L (22-30); Chloride 97 mmol/L (98-107); Estimated Creatinine Clearance 17 ml/min; Glucose 97 mg/dl (70-99); Potassium 4.5 mmol/L (3.5-5.1); Sodium 128 mmol/L (135-145); eGFR 16.71
[2023-10-18] MEDS: NON-FORMULARY ITEM 1 UNIT INH (07:32)
[2023-10-18] MEDS: BACTROBAN 2% OINTMENT 1 APPLIC NASAL (08:41)
--- NOTE | 2023-10-18 08:41 | W.PN.CARDCBS ---
Addendum entered and electronically signed by Ras Bower MD 10/18/23 12:10:
I saw and examined the patient.
The Peoples[employer] Hrms Developer's note was reviewed and I agree with the note.
Comment: Briefly, 82-year-old man past medical history multivessel CAD who underwent CABG x 3 earlier this week
Recovering well postoperatively, out of bed to chair, not requiring inotrope or pressor support
Maintaining sinus rhythm on telemetry
Given CKD 4 diuretic management is challenging, appreciate nephrology input
Agree with current cardiac meds
We will continue to follow
Original Note:
Today's Communication / Plan
-
Continue postop care
Repeat EKG
Follow creatinine
Follow hemoglobin. Continue DAPT
Impression / Plan
-
PCP: Dr. Renita Ward
Acoustical Material Worker: Dr. Magana ([facility] Cardiology)
Impression:
CAD
3-vessel CAD with significant LM disease by cath 10/09/2023
s/p CABG x 3 (MELÉNDEZ-LAD, RSVG-OM, RSVG-RPDA) 10/14/2023
PAD
HTN
HLD
CKD 4
COPD
Chronic ALEC
GERD
IRINA on CPAP
Carotid US noted >70% stenosis of the R ICA
Nuclear stress test 10/02/2023: moderate to large size and moderate in severity perfusion defect involving the basal to apical inferior wall noted on rest imaging. This improves substantially on stress images. Positive stress ECG criteria at 4 minutes
of exercise, achieving 2.3 METs of activity .
C 10/09/2023: LM diffusely diseased with long 70% stenosis. LAD: Heavily calcified with mild to moderate luminal irregularities and at worst a smooth long 40 to 50% mid stenosis. LCx: Heavy calcification in the mid circumflex associated with a
50% stenosis extending into the large third obtuse marginal branch. RCA: Diffuse luminal irregularities throughout the RCA with a long proximal 40% stenosis and a more severe focal mid 60% stenosis before the acute margin. Smooth 50% stenosis in
the ostial/proximal PDA.
Echo 08/02/2023: EF 55-60%, moderate cLVH, no significant valvular disease
Plan:
-Reports feeling well this morning
-s/p CABG x3 10/14/23
-Creatinine peaked at 3.7 yesterday, 3.5 this morning. Nephrology following and directing diuresis.
-Remains in sinus rhythm on review of telemetry. Continue Amio and low-dose Lopressor as able.
-Repeat EKG, last from 10/[address] elevation in lateral leads, new compared to prior
-hgb 8.0 on 10/18. continue asa, plavix. follow hgb.
-continue OOB/IS
-was on hydralazine, norvasc, and benazepril as OP, all presently on hold in post op setting
-Discussed with nursing
-Carotid US noted >70% stenosis of the R ICA. Will need to be closely followed as an outpatient.
Progress Note - Acoustical Material Worker
Subjective
Date of Service: October 18, 2023
Patient feeling well. Sitting up in chair eating breakfast
Objective
Labs:
10/18/23 06:00
10/18/23 06:00
Labs
Hgb Cancelled 10/18/23 06:00
Hct Cancelled 10/18/23 06:00
Plt Count Cancelled 10/18/23 06:00
PT 16.4 Sec (11.4-14.6) H 10/15/23 03:35
INR 1.34 10/15/23 03:35
APTT 38.1 Sec (23.4-35.0) H 10/14/23 11:24
Sodium Cancelled 10/18/23 06:00
Potassium Cancelled 10/18/23 06:00
BUN Cancelled 10/18/23 06:00
Creatinine Cancelled 10/18/23 06:00
Glucose Cancelled 10/18/23 06:00
Vital Signs and I&O:
Vital Signs
Temp Pulse Resp BP Pulse Ox
98.2 F 68 16 124/57 95
10/18/23 08:15 10/18/23 08:15 10/18/23 08:15 10/18/23 08:10 10/18/23 08:15
Vital Signs
Temp Pulse Resp BP Pulse Ox
98.2 F 68 16 124/57 95
10/18/23 08:15 10/18/23 08:15 10/18/23 08:15 10/18/23 08:10 10/18/23 08:15
Intake & Output
10/16/23 10/17/23 10/18/23 10/19/23
07:59 07:59 07:59 07:59
Intake Total 185.3 / 185.3 850 / 860 440 / 440 270 / 270
Output Total 780 / 780 580 / 780 2825 / 2825 175 / 175
Balance -594.7 / -594.7 270 / 80 -2385 / -2385 95 / 95
Physical Exam
Physical Exam
GEN: No distress, awake, alert, oriented x3. sitting in chair
HEENT: supple, anicteric, mmm, eomi
LUNGS: Crackles BS B/L bases, no wheezes
CV: Reg, S1/S2, no murmur
ABD: soft, BS+, NT/ND
EXT: No cyanosis, clubbing. Trace edema of B/L LE
NEURO: Gross non-focal
SKIN: Warm, pink, dry. No rash. Sternotomy incision healing well.
: garcia
[2023-10-18] MEDS: SENOKOT-S 1 TABLET PO ×2 (08:42→20:34)
[2023-10-18] MEDS: LOPRESSOR 25 MG PO ×2 (08:42→20:32)
[2023-10-18] MEDS: VITAMIN C 500 MG PO (08:42)
[2023-10-18] MEDS: LASIX 80 MG IV (08:42)
[2023-10-18] MEDS: ZAROXOLYN 5 MG PO (08:43)
[2023-10-18] MEDS: PROTONIX 40 MG PO (08:43)
[2023-10-18] MEDS: LOW STRENGTH ASPIRIN 81 MG PO (08:43)
[2023-10-18] MEDS: PLAVIX 75 MG PO (08:43)
[2023-10-18] MEDS: PACERONE 200 MG PO ×2 (08:43→20:33)
[2023-10-18] MEDS: TYLENOL 650 MG PO (08:58)
--- NOTE | 2023-10-18 09:00 | PTCARENOTE ---
Patient received from fast food shift supervisor resting comfortably oob in chair, AAO X 3, states pain controlled at this time. NSR via cm, SaO2 @ 95% on RA. RIJ Cordis w/kvo infusing. Epicardial V-wire insulated to chest wall. Hanna catheter to gravity. All
procedural sites stable. Dr. Lafleur and team to bedside for am rounds. Patient updated to plan of care for the day including possible d/c home later, in agreement. See work list for full assessment and interventions performed.
--- NOTE | 2023-10-18 11:05 | W.PN.NEPH.PH ---
Today's Communication / Plan
-
see plan
Assessment/Plan
-
Impression:
Status postcardiac catheterization 10/09 with noted 3V disease s/p CABG x3 10/14
Chronic kidney disease stage IV (2.4)
Longstanding uncontrolled hypertension with negative secondary hypertensive work
Anemia on chronic BOBO
Peripheral arterial disease with active claudication
COPD
Plan:
s/p CABG 10/14
cr peak at 3.7, better at 3.5 today and UOP improved with diuresis
if cr cont to be sable ok for d/c tomorrow
hopefully can avoid HD this admit
hyponatremia from hypervolemia, strict FR 48 ounces/day
garcia removed today, follow bladder scan
s/p lasix and metolazone today
plan lasix 40mg BID at d/c with prn metolazone 2.5mg daily for wt gains
BP stable
hb stable, on BOBO out pt , will dose today 10k SQ, cotn iV fe course
cont post op care per surg
d/w primary
-
-
Date of Service: October 18, 2023
CC / HPI / ROS
-
Chief Complaint:
ckd
History of Present Illness:
Creatinine slightly down at 3.5, non oliguric with garcia
s/p CABG 10/14
BP stable off pressor
hb low at 8
Review of Systems:
no sob at rest
pain controlled
feels well
Labs
-
Labs:
WBC Cancelled 10/18/23 06:00
RBC Cancelled 10/18/23 06:00
Hgb Cancelled 10/18/23 06:00
Hct Cancelled 10/18/23 06:00
Plt Count Cancelled 10/18/23 06:00
Sodium Cancelled 10/18/23 06:00
Potassium Cancelled 10/18/23 06:00
Chloride Cancelled 10/18/23 06:00
Carbon Dioxide Cancelled 10/18/23 06:00
BUN Cancelled 10/18/23 06:00
Creatinine Cancelled 10/18/23 06:00
eGFR Cancelled 10/18/23 06:00
Glucose Cancelled 10/18/23 06:00
Calcium Cancelled 10/18/23 06:00
Albumin 3.8 g/dl (3.5-5.0) 10/09/23 16:14
Physical Exam
-
Vital Signs:
Vital Signs
Temp Pulse Resp BP Pulse Ox
98.2 F 65 16 124/58 94
10/18/23 08:15 10/18/23 10:31 10/18/23 08:15 10/18/23 10:31 10/18/23 10:30
Cardiovascular:: Regular rate and rhythm
Respiratory:: Bilateral: Rales (at bases)
Lung Excursion:: Normal
Abdomen:: Nontender and Soft
Extremity Edema:: None: Bilateral: (trace)
Garcia Catheter: No
[2023-10-18] MEDS: NSS 500 IV (11:35)
--- NOTE | 2023-10-18 12:00 | PTCARENOTE ---
VS obtained, assessment unchanged. Patient resting oob in chair, denies pain.
[2023-10-18] MEDS: RETACRIT 10000 UNITS SC (12:47)
[2023-10-18 13:25] LABS: Hematocrit 26.1 % (39.0-52.0); Hemoglobin 8.8 g/dL (13.0-18.0); Mean Corp Hgb Conc. 33.7 g/dL (33.0-37.0); Mean Corpuscular Hgb 29.4 pg (27.0-31.0); Mean Corpuscular Volume 87.3 fL (80.0-94.0); Platelet Count 141 10^3/uL (130-400); Red Blood Cell Count 2.99 10^6/uL (4.70-6.10); Red Cell Dist. Width 17.7 % (11.5-14.5); White Blood Cell Count 9.1 10^3/uL (4.8-10.8)
[2023-10-18 13:44] LABS: Blood Urea Nitrogen 77 mg/dl (9-20); Calcium 8.4 mg/dl (8.4-10.2); Carbon Dioxide 27 mmol/L (22-30); Chloride 95 mmol/L (98-107); Estimated Creatinine Clearance 17 ml/min; Glucose 137 mg/dl (70-99); Potassium 4.5 mmol/L (3.5-5.1); Sodium 128 mmol/L (135-145); eGFR 16.16
[2023-10-18] MEDS: FERRLECIT 110 MG IV (14:11)
--- NOTE | 2023-10-18 20:30 | PTCARENOTE ---
Patient received OOB in chair talking with friend. Patient A+A+Ox3. No neurological deficits noted. No c/o pain or discomfort. Room air. SaO2 95%. Sinus Rhythm with BBC and PAC's. Heart rate 60's. No c/o chest pain, pressure or discomfort.
V-Wire insulated. Normoactive bowel sounds. No BM. No c/o nausea. No vomiting. Patient ambulated to bathroom with minimal assistance - Voided 150 ml yellow urine. Patient with no c/o back or flank pain. Bilateral lower extremity edema.
Positive, palpable pulses. Sternal incision - Surgical adhesive - Intact - Open to air. Right knee incision - Intact - Open to air. Right I.J. Cordis - Intact and patent - Saline flush 10 ml/hr. Assessment as documented.
[2023-10-18] MEDS: NEURONTIN 300 MG PO (22:22)
[2023-10-18] MEDS: LIPITOR 40 MG PO (22:22)
--- NOTE | 2023-10-19 | PTCARENOTE ---
Patient sleeping. CPAP with 2L O2 intact. No further changes from previous assessment.
--- NOTE | 2023-10-19 03:00 | PTCARENOTE ---
Patient assisted to bathroom to void with minimal assistance. Voided 300 ml yellow urine. Back to bed. Post Void Bladder Scan 320 ml. No c/o bladder pain or discomfort. Patient back to sleep. Assessment as documented.
[2023-10-19 04:00] VITALS: BP 135/59
[2023-10-19 04:02] VITALS: BP 135/59
[2023-10-19 04:36] LABS: Hematocrit 23.8 % (39.0-52.0); Hemoglobin 8.2 g/dL (13.0-18.0); Mean Corp Hgb Conc. 34.5 g/dL (33.0-37.0); Mean Corpuscular Hgb 29.5 pg (27.0-31.0); Mean Corpuscular Volume 85.6 fL (80.0-94.0); Mean Platelet Volume 11.5 fL (7.4-10.4); Platelet Count 125 10^3/uL (130-400); Red Blood Cell Count 2.78 10^6/uL (4.70-6.10); Red Cell Dist. Width 17.5 % (11.5-14.5); White Blood Cell Count 7.6 10^3/uL (4.8-10.8)
[2023-10-19 05:00] LABS: Blood Urea Nitrogen 87 mg/dl (9-20); Calcium 8.5 mg/dl (8.4-10.2); Carbon Dioxide 28 mmol/L (22-30); Chloride 94 mmol/L (98-107); Estimated Creatinine Clearance 17 ml/min; Glucose 101 mg/dl (70-99); Potassium 4.2 mmol/L (3.5-5.1); Sodium 130 mmol/L (135-145); eGFR 16.71
--- NOTE | 2023-10-19 05:15 | PTCARENOTE ---
Patient A+A+Ox3. No neurological deficits noted. AM lab work collected and sent. Patient ambulated to bathroom with minimal assistance. No c/o pain or discomfort. Patient voided 400 ml. Post void bladder scan 282 ml. OOB to chair. Standing
scale weight 85.5 kg. Assessment/Interventions as documented.
--- NOTE | 2023-10-19 05:16 | W.PN.CT ---
Addendum entered and electronically signed by Rayshawn Horne MD 10/19/23 09:38:
I saw and examined the patient.
The PA's note was reviewed and I agree with the note.
Comment:
POD#5 s/p CABG x 3, ELAA
No major overnight events. Creat stable at 3.5. Tm 99.4. 58 sinus. 126/57. 95% RA. GTTS: none. Drains: none. UO: 850/1800, spontaneous voids; Hx of chronic retention; PVRs in 200s. Tolerating PO. Neuro: intact. Na 130, 7.6>8.2<125; 87/3.5
(Creat 3.6 yesterday; Creat 2.3 preop). CXR: yesterday - 2-view; largely clear, scant effusion.
- ASA/plavix, BB, no amio on D/C, lasix 40mg PO BID per nephrology w/ prn metolazone
- OOB/IS/ambulate
- D/C planning for potentially later today
Original Note:
Today's Communication / Plan
-
-pod #5
-no issues overnight
-diuresed with Lasix and Metolazone past 2 days (UO 450/1400 in 12/24 hrs)
-follow Cr - 3.5 today (3.5-3.6 on 10/18, peak 3.7)
-fluid restriction for low Na- improved 130
-noted Nephrology recommendation for Lasix 40mg BID at d/c with prn metolazone 2.5mg daily for wt gains
-encourage IS, ambulate
-appreciate everyone's input
Assessment / Plan
-
Assessment:
-S/P Standard sternotomy with aortic and right atrial cannulation/CABG x 3 (In situ MELÉNDEZ to LAD, Ao to RSVG to OM 3, Ao to RSVG to RPDA)/R EVH/ELAA, by Dr. Lafleur, 10/14/23, pod#5
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
-Exertional stable angina
-Abnormal stress test
-LVEF 60% per intraop JACQUE
-Mild TR
-Mild MR
-Dilated mid asc. aorta (3.6 cm)
-Mild sessile atheroma @ descending and distal aortic arch
-PAD with claudication
-RANDY stenosis (>70%), per u/s 10/09/22
-HTN
-HLD
-CKD 4 (cr 2.4)
-Anemia of CKD, on Procrit
-BPH, on finasteride
-Mild COPD
-IRINA (uses CPAP)
-Former tobacco use (quit 20 yrs ago)
-GERD
-DJD spine
-Prediabetes (A1C 5.7)
-Chronic right otitis media/Eustachian tube dysfunction/Retained Myringotomy tube S/P removal of myringotomy tube from right ear, 10/07/19
-S/P Cholecystectomy
-S/p Repair of femur fracture (50 yrs ago)
-Acute blood loss on chronic anemia (transfused 1u PRBC)
-Acute postop thrombocytopenia (stable without active bleed)
-Acute postop atelectasis
-Acute postop hypovolemia with subsequent hypervolemia
-Acute postop hyponatremia, 129
-JULIANNA in setting of CKD 4
Discussed patient care with: Nursing and Care Team
Subjective
Procedure
Standard sternotomy with aortic and right atrial cannulation/CABG x 3 (In situ MELÉNDEZ to LAD, Ao to RSVG to OM 3, Ao to RSVG to RPDA)/R EVH/ELAA, by Dr. Lafleur, 10/14/23
-
Date of Service: October 19, 2023
Objective Data
-
PT 16.4 Sec (11.4-14.6) H 10/15/23 03:35
INR 1.34 10/15/23 03:35
APTT 38.1 Sec (23.4-35.0) H 10/14/23 11:24
Vital Signs
Vital Signs
Temp Pulse Resp BP Pulse Ox
98.6 F 60 16 126/57 97
10/18/23 22:20 10/18/23 22:21 10/18/23 22:20 10/18/23 22:21 10/18/23 22:21
CT Intake/Output/Weight
10/18/23 10/18/23 10/19/23
06:59 18:59 06:59
Intake Total 120 / 440 620 / 920 300 / 920
Output Total 1280 / 2825 950 / 1100 150 / 1100
Balance -1160 / -2385 -330 / -180 150 / -180
SaO2: 97
Physical Exam
-
General: Awake and AOx3
Cardiovascular: Regular rate & rhythm, No Murmurs and No Rub
Respiratory: Rales (at bases b/l)
Sternum: Stable
Incision: Clean, Dry and Intact
Abdomen: soft, nontender, nondistended, + bowel sounds
Extremities: Other (trace edema b/l)
Data Reviewed
-
Lab Results: Results Reviewed
Medications: Active Meds Reviewed
Chest X-Ray: Report Reviewed and Image Reviewed
ECG: Report Reviewed and Image Reviewed
[2023-10-19 05:23] VITALS: BMI 26.3
[2023-10-19 07:59] VITALS: BP 134/53
--- NOTE | 2023-10-19 08:00 | PTCARENOTE ---
pt received from previous RN, oriented, OOB in chair. SR on the monitor, HR 60s. V wire insulated. SBP 130s. +2 LE edema. palpable pulses. pt on RA, 97% POX. lungs clear, L base crackles. IS encouraged. pt abdomen s/n, denies n/v. diet tolerated
well. +BS, +flatus, no BM yet. voids. sternal incision approximated, ANGE. chest tube dressing c/d/i. RLE incision c/d/i. RIJ cordis maintained. PIV. see worklist for VS, I&O, and assessment.
[2023-10-19] MEDS: LOW STRENGTH ASPIRIN 81 MG PO (08:01)
[2023-10-19] MEDS: PLAVIX 75 MG PO (08:01)
[2023-10-19] MEDS: VITAMIN C 500 MG PO (08:01)
[2023-10-19] MEDS: PROSCAR 5 MG PO (08:01)
[2023-10-19] MEDS: PROTONIX 40 MG PO (08:01)
[2023-10-19] MEDS: TYLENOL 650 MG PO (08:02)
[2023-10-19] MEDS: PACERONE 200 MG PO (08:02)
[2023-10-19] MEDS: TOPROL XL 50 MG PO (08:02)
[2023-10-19] MEDS: NORVASC 2.5 MG PO (08:02)
[2023-10-19] MEDS: SENOKOT-S 1 TABLET PO (08:02)
[2023-10-19] MEDS: LASIX 40 MG PO (08:18)
[2023-10-19] MEDS: NSS IV (08:22)
[2023-10-19] MEDS: NON-FORMULARY ITEM 1 UNIT INH (08:53)
[2023-10-19 09:43] VITALS: BP 105/56
[2023-10-19 09:49] VITALS: BP 121/62
--- NOTE | 2023-10-19 10:27 | W.DCSUMMARY ---
Discharge Summary
Discharge Data
Date of Admission: 10/09/23
Date of Discharge: 10/19/23
Total time spent discharging patient (in min): 45
-
Pending Results: No
Hospital Course
Primary care physician:
Dr. Renita Ward
Outpatient informatics pharmacist:
Dr. David Magana
Inpatient consultants:
DCA, pharmacometrician, nephrology
Procedures:
1. Coronary artery bypass grafting x 3�
Primary Diagnosis:
1. Multivessel coronary disease involving the left main
Secondary Diagnoses:
1. Chronic kidney disease stage IV
2. Benign prostatic hypertrophy
3. Hypertension
4. Hyperlipidemia
5. Mild COPD
6. Moderately severe carotid disease
7. Chronic anemia on epogen
8. Gastroesophageal reflux disease
9. Abnormal stress test
HPI: 82-year-old male who was found to have distal left main disease with a large piece of calcium right at the ostium of the circumflex vessel.� He was found to have abnormal stress study which led left left heart cath.� Due to his CKD stage IV,
he is at high risk for requiring dialysis either temporary or permanently afterwards.� Multidisciplinary team discussion was performed.� The patient and his understood the risks and opted to move forward with surgery given the disease pattern
and difficulty with PCI.
Hospital course: Patient was admitted to [facility] on 10/09 for a elective left heart cath with Dr. Magana. It was found that he had multivessel disease so CT surgery was consulted for surgical eval. He received his preoperative testing
and was taken to the OR by Dr. Lafleur on 10/14. In the OR he received a coronary artery bypass grafting x 3 and a left atrial appendage clip. He returned to the [facility] OR on Levophed, Precedex, and insulin. Levophed and Precedex was weaned off and
patient was extubated by 1500. He received his postoperative aspirin. On 10/15 postop day #1, he was started on aspirin and Plavix. Patient was D lined and left pleural chest tube was removed mediastinal chest tubes had an air leak so that 1
remained. Creatinine was stable at 2.4 diuresis was held and Hanna was maintained. Insulin drip was transitioned off and patient was downgraded to telemetry status. On 10/16 airleak of the mediastinal chest tubes resolved therefore it was removed.
Creatinine rise to 3.0 and patient was diuresed with Lasix 40 mg twice daily. On 10/17 postop day #3 patient was given 40 mg of IV Lasix with a minimal response therefore later in the afternoon he was given 80 mg IV Lasix along with 5 mg of p.o.
metolazone. Patient had an adequate response from that diuretic regimen and repeat Juaquin BMP in the afternoon showed that the creatinine was stabilizing at 3.5 with a peak of 3.7. On 10/18 postop day #4 patient was given 80 mg of IV Lasix and
metolazone again. Hanna was removed. Per nephrology Epogen was started and BMP was further trended. Creatinine went from 3.5-3.6 so further diuresis was held. 2 view chest x-ray yesterday was stable. On 10/19 postop day #5, patient was given 40
mg of p.o. Lasix. He was seen by nephrology and they suggested him to be discharged with Lasix and as needed metolazone. He is scheduled for follow-up blood work on Saturday and Saturday and was instructed to follow with his own mentally impaired teacher within 1
to 2 weeks. All his other prescriptions were sent to his preferred pharmacy.
Home medication changes:
Started:
Acetaminophen 650 mg every 6 hours as needed for mild to moderate pain
Amlodipine 2.5 mg p.o. daily for blood pressure control
Clopidogrel 75 mg p.o. daily x 30 days for graft patency
Furosemide 40 mg twice daily for fluid retention
Metolazone 2.5 mg p.o. daily as needed for weight gain while on Lasix
Metoprolol succinate 50 mg extended release p.o. daily for blood pressure and heart rate control
Pantoprazole 40 mg p.o. daily for GI protection while on Plavix
Stopped:
Amlodipine 5 mg p.o. daily was discontinued because the dose was reduced
Benazepril 20 mg p.o. daily because of blood pressure
Fish oil discontinued
Furosemide 40 mg p.o. daily was discontinued because the dose was increased to twice daily
Hydralazine 50 mg p.o. twice daily was not restarted because blood pressure did not allow
Omeprazole 20 mg p.o. BID was replaced with Protonix
Discharge Plan
-
Patient Disposition: Home (Routine Discharge)
Discharge Diagnosis/Procedures: CAD/CABG
Condition: Fair
Diet: Low Cholesterol, Low Sodium and Restrict fluids to 48 oz
Activity: No strenuous activity
Driving Restrictions: Not until seen by your Dr
Bathing Restrictions: OK to Shower
Blood Work: BMP on saturday 10/21 and tuesday 10/24
Other Services: Cardiac Rehab
Specialty Instructions: Weigh Daily- Call MD for wt gain/loss 3 lbs overnight/5 lbs in 1 week
Stop these medications:: benazepril
fish oil
hydralazine
omeprazole
Activity Restrictions/Additional Instructions:
Call to reschedule your appointment with Dr. Encarnacion for an appointment in 1-2 weeks
ACTIVITY:
-No strenuous activity: no heavy lifting, pushing, pulling anything over 15 pounds for one month
-continue to use stairs as tolerated
DRIVING RESTRICTIONS:
-No driving for one month or until approved by your surgeon
WOUND CARE:
-Shower daily. Use soap & water.
-No lotions, creams or powders on incision area.
DIET:
-continue a low fat/low cholesterol diet.
-IF you are diabetic, continue carb controlled diet.
CARDIAC REHAB:
-Please make appointment to start in 5-6 weeks with your local hospital program. (See Cardiac Rehabilitation Discharge Booklet).
SPECIALTY INSTRUCTIONS:
-Weigh yourself daily. Call your physician for any weight gain/loss of 3 lbs overnight or 5 lbs in one week.
-REPORT any clicking noise or uneven appearance of your sternum to your surgeon immediately.
-If you smoke, you are instructed to quit. The [place] smoking hotline phone number is [phone]
Referrals:
CT Transitional Care Nurse [Outside] (The Cardiothoracic Transitional Care Nurse will call you to set up a visit in 1-2 days.)
Vinnie Mckeon MD [Active] -
(Interstitial disease, bullous lung dis, pulm nodule
CT chest in 6 mo (Mar 2024) with pulm f/u
)
Lyssa Encarnacion MD [Non-Admitting Privileges] - (Call to reschedule your appointment on February 05 to a sooner date)
Renita Ward DO [Primary Care Provider] - in one to two months
Chung Lafleur MD [Active] - 11/14/23 2:00 pm
David Magana MD [Active] - 12/09/23 8:30 am (Cardiology followup appointment)
Prescriptions:
New
metoprolol succinate 50 mg Tablet Extended Release 24 Hr
50 mg PO DAILY Qty: 60 0RF
amlodipine 2.5 mg Tablet
2.5 mg PO DAILY Qty: 30 0RF
clopidogrel 75 mg Tablet
75 mg PO DAILY Qty: 30 0RF
furosemide 40 mg Tablet
40 mg PO BID Qty: 30 0RF
pantoprazole 40 mg Tablet,Delayed Release (Dr/Ec)
40 mg PO DAILY Qty: 30 0RF
acetaminophen 325 mg Tablet
650 mg PO Q4HPRN PRN (Reason: mild pain,headache,temp >101F ) Qty: 0 0RF
metolazone 2.5 mg tablet
2.5 mg PO DAILY PRN (Reason: Fluid retention) Qty: 30 0RF
Rx Instructions:
Take as needed for weight gain while on lasix
Continued
atorvastatin [Lipitor] 40 MG tablet
40 mg PO HS
ascorbic acid (vitamin C) [Vitamin C] 1,000 MG tablet
1,000 mg PO DAILY
cyanocobalamin (vitamin B-12) 1,000 MCG tablet
1,000 mcg PO DAILY
aspirin 81 MG tablet,delayed release (DR/EC)
81 mg PO HS
terazosin [Hytrin] 10 MG capsule
10 mg PO HS
finasteride 5 MG tablet
5 mg PO HS
cholecalciferol (vitamin D3) [Vitamin D3] 25 MCG capsule
50 mcg PO DAILY
multivitamin Tablet
1 tab PO DAILY
Procrit 2,000 unit/mL Solution
2,000 unit SC Q2W
gabapentin 300 mg Tablet
300 mg PO HS
Anoro Ellipta 62.5-25 mcg/actuation Blister With Device
1 inh INHALATION DAILY
albuterol sulfate 90 mcg/actuation Hfa Aerosol Inhaler
1 puff INHALATION QID PRN (Reason: wheezing/dyspnea)
Discontinued
amlodipine 2.5 MG tablet
5 mg PO DAILY
fish oil-dha-epa 1 EACH capsule
1 ea PO DAILY
hydralazine 50 mg Tablet
50 mg PO BID
furosemide 40 mg Tablet
40 mg PO DAILY
benazepril 20 mg Tablet
20 mg PO DAILY
omeprazole 20 mg Tablet,Delayed Release (Dr/Ec)
20 mg PO BID@0800,1700
Care Plan Goals
Care Plan Goals:
Problem: Readiness for enhanced knowledge related to diagnosis and treatment plan
Goal: Understand your diagnosis and treatment plan needs, including medications if applicable.
Instructions: Know your diagnosis, underlying causes and treatment plan options, including medications if applicable. Consult with your health care team to learn about your diagnosis and treatment plan, including medications if applicable.
--- NOTE | 2023-10-19 10:33 | W.PN.NEPH.PH ---
Today's Communication / Plan
-
see plan
Assessment/Plan
-
Impression:
Status postcardiac catheterization 10/09 with noted 3V disease s/p CABG x3 10/14
Chronic kidney disease stage IV (2.4)
Longstanding uncontrolled hypertension with negative secondary hypertensive work
Anemia on chronic BOBO
Peripheral arterial disease with active claudication
COPD
Plan:
s/p CABG 10/14
cr peak at 3.7, stable at 3.5 today and non oliguric with diuresis , PVR 211cc
no need of HD at this time
azotemia likely from diuresis-downgrade to po from today
he still with edema but resp status stable on RA
hyponatremia from hypervolemia, sodium better at 130, strict FR 48 ounces/day
plan lasix 40mg BID at d/c with prn metolazone 2.5mg daily for wt gains
BP stable
hb stable, on BOBO out pt , s/p BOBO on 10/18, cotn iV fe course
cont post op care per surg
d/w primary
for d/c today,
he will f/u with his nephro Dr Encarnacion at [place], left my ph number with pt
BMP Saturday or Saturday
d/w nursing
-
-
Date of Service: October 19, 2023
CC / HPI / ROS
-
Chief Complaint:
ckd
History of Present Illness:
Creatinine stable at 3.5, non oliguric without garcia
s/p CABG 10/14
BP stable with out meds
hb low at 8
Review of Systems:
no sob at rest
pain controlled
feels well
Labs
-
Labs:
WBC 7.6 10^3/uL (4.8-10.8) 10/19/23 04:14
RBC 2.78 10^6/uL (4.70-6.10) L 10/19/23 04:14
Hgb 8.2 g/dL (13.0-18.0) L 10/19/23 04:14
Hct 23.8 % (39.0-52.0) L 10/19/23 04:14
Plt Count 125 10^3/uL (130-400) L 10/19/23 04:14
Sodium 130 mmol/L (135-145) L 10/19/23 04:14
Potassium 4.2 mmol/L (3.5-5.1) 10/19/23 04:14
Chloride 94 mmol/L (98-107) L 10/19/23 04:14
Carbon Dioxide 28 mmol/L (22-30) 10/19/23 04:14
BUN 87 mg/dl (9-20) H 10/19/23 04:14
Creatinine 3.5 mg/dL (0.7-1.3) H 10/19/23 04:14
eGFR 16.71 10/19/23 04:14
Glucose 101 mg/dl (70-99) H 10/19/23 04:14
Calcium 8.5 mg/dl (8.4-10.2) 10/19/23 04:14
Albumin 3.8 g/dl (3.5-5.0) 10/09/23 16:14
Physical Exam
-
Vital Signs:
Vital Signs
Temp Pulse Resp BP Pulse Ox
98.8 F 64 16 105/56 97
10/19/23 08:00 10/19/23 09:43 10/19/23 08:54 10/19/23 09:43 10/19/23 09:12
Cardiovascular:: Regular rate and rhythm
Respiratory:: Bilateral: CTA
Lung Excursion:: Normal
Abdomen:: Nontender and Soft
Extremity Edema:: +1: Bilateral:
Garcia Catheter: No
[2023-10-19 12:11] VITALS: BP 105/56; BP 121/62; PULSE 64; O2SAT 95
--- NOTE | 2023-10-19 13:00 | PTCARENOTE ---
pt discharged home w/ , discharge instructions reviewed w/ patient and . pt aware to call CT office if own pharmacy can't get metazolone. IV and tele dc'd. pt showered, dressed self. pt left w/ all belongings via wheelchair by staff escort.
== END 2023-10-19 14:30 | disposition home or self-care (01) | DRG 234 ==
LOC: CVICU 11:40
PROVIDERS: Anesthesiology; Clinical Nurse Specialist Acute Care; Nurse Practitioner; Physician Assistant; Physician Assistant Medical; Physician Assistant Surgical; Thoracic Surgery (Cardiothoracic Vascular Surgery); ADMITTING PHYSICIAN Internal Medicine Interventional Cardiology; ATTENDING PHYSICIAN Thoracic Surgery (Cardiothoracic Vascular Surgery); CONSULT PHYSICIAN Internal Medicine Critical Care Medicine; CONSULT PHYSICIAN Specialist; PRIMARYCARE PHYSICIAN Family Medicine
PROC: 4A023N7 Measurement of Cardiac Sampling and Pressure, Left Heart, Percutaneous Approach (ICD-10-PCS; 2023-10-09)
PROC: B2111ZZ Fluoroscopy of Multiple Coronary Arteries using Low Osmolar Contrast (ICD-10-PCS; 2023-10-09)
PROC: 5A09357 Assistance with Respiratory Ventilation, Less than 24 Consecutive Hours, Continuous Positive Airway Pressure (ICD-10-PCS; 2023-10-09)
PROC: 02L70CK Occlusion of Left Atrial Appendage with Extraluminal Device, Open Approach (ICD-10-PCS; 2023-10-14)
PROC: 021109W Bypass Coronary Artery, Two Arteries from Aorta with Autologous Venous Tissue, Open Approach (ICD-10-PCS; 2023-10-14)
PROC: 06BP4ZZ Excision of Right Saphenous Vein, Percutaneous Endoscopic Approach (ICD-10-PCS; 2023-10-14)
PROC: 02100Z9 Bypass Coronary Artery, One Artery from Left Internal Mammary, Open Approach (ICD-10-PCS; 2023-10-14)
PROC: 5A1221Z Performance of Cardiac Output, Continuous (ICD-10-PCS; 2023-10-14)
PROC: 30233N1 Transfusion of Nonautologous Red Blood Cells into Peripheral Vein, Percutaneous Approach (ICD-10-PCS; 2023-10-14)
PROC: B24BZZ4 Ultrasonography of Heart with Aorta, Transesophageal (ICD-10-PCS; 2023-10-14)
DX: I25.118 Atherosclerotic heart disease of native coronary artery with other forms of angina pectoris (principal); N18.4 Chronic kidney disease, stage 4 (severe); D62 Acute posthemorrhagic anemia; N17.9 Acute kidney failure, unspecified; J98.11 Atelectasis; E87.1 Hypo-osmolality and hyponatremia; I73.9 Peripheral vascular disease, unspecified; I12.9 Hypertensive chronic kidney disease with stage 1 through stage 4 chronic kidney disease, or unspecified chronic kidney disease; K21.9 Gastro-esophageal reflux disease without esophagitis; D69.59 Other secondary thrombocytopenia; E86.1 Hypovolemia; E87.70 Fluid overload, unspecified; R60.0 Localized edema; R00.1 Bradycardia, unspecified; G47.33 Obstructive sleep apnea (adult) (pediatric); D63.1 Anemia in chronic kidney disease; E78.00 Pure hypercholesterolemia, unspecified; J44.9 Chronic obstructive pulmonary disease, unspecified; R73.03 Prediabetes; J98.4 Other disorders of lung; D50.9 Iron deficiency anemia, unspecified; I65.21 Occlusion and stenosis of right carotid artery; I08.1 Rheumatic disorders of both mitral and tricuspid valves; I77.810 Thoracic aortic ectasia; I70.0 Atherosclerosis of aorta; N40.0 Benign prostatic hyperplasia without lower urinary tract symptoms; R94.39 Abnormal result of other cardiovascular function study; Z87.891 Personal history of nicotine dependence
CPT/HCPCS: 94727; 94729; 36600; 71045; 71046; 71250; 80048; 80061; 80076; 81003; 81015; 82330; 82565; 82570; 82805; 82810; 82947; 82962; 83036; 83735; 84132; 84156; 84302; 84520; 85014; 85018; 85027; 85049; 85610; 85730; 86850; 86900; 86901; 86920; 93005; 93312; 93320; 93325; 93458; 93880; 93970; 94002; 94010; 94640; 94660; C1894; J2916; P9016; P9045; Q5106; Q9967

== ENCOUNTER → 2025-01-11 12:50 | Outpatient (REF) | payer MEDICARE, SELFPAY | LOC: MRI 3T 12:50 | PROVIDERS: ATTENDING PHYSICIAN Urology; FAMILY PHYSICIAN Family Medicine | DX: R97.20 Elevated prostate specific antigen [PSA] (principal) | CPT/HCPCS: 72197; A9575 ==